=== PATIENT | female | born 1945 | race Caucasian/White ===

== ENCOUNTER 2020-03-12 22:30 | Inpatient (IN) | payer MEDICARE, OTHER ==
--- NOTE | 2020-03-12 22:39 | EDM.PDOC ---
ED HPI GENERAL MEDICAL PROBLEM - General Chief Complaint: Respiratory Problem Stated Complaint: AMBULANCE Time Seen by Provider: 03/12/20 22:36 Source of Information: Reports: Patient, EMS History Limitations: Reports: No Limitations - History of Present Illness INITIAL COMMENTS - FREE TEXT/NARRATIVE: EMS state pt c/o sob since noon and felt worse tonight. - Related Data Allergies Allergy/AdvReac Type Severity Reaction Status Date / Time amlodipine besylate Allergy Unknown UNKNOWN Verified 03/12/20 22:19 [From Lotrel] benazepril HCl [From Lotrel] Allergy Unknown UNKNOWN Verified 03/12/20 22:19 fosinopril sodium Allergy Unknown UNKNOWN Verified 03/12/20 22:19 [From Monopril] furosemide [From Lasix] Allergy Unknown SKIN Verified 03/12/20 22:19 RASHES/HIVES hydrochlorothiazide Allergy Unknown SKIN RASH Verified 03/12/20 22:19 irbesartan [From Avapro] Allergy Unknown UNKNOWN Verified 03/12/20 22:19 metformin Allergy Unknown Diarrhea Verified 03/12/20 22:19 metoprolol succinate Allergy Unknown SWOLLEN Verified 03/12/20 22:19 [From Toprol XL] LIPS/TONGUE propranolol HCl Allergy Unknown UNKNOWN Verified 03/12/20 22:19 [From Inderal LA] ramipril [From Altace] Allergy Unknown SWOLLEN Verified 03/12/20 22:19 LIPS/TONGUE verapamil HCl [From Verelan] Allergy Unknown RASH, HIVES Verified 03/12/20 22:19 zinc Allergy Unknown UNKNOWN Verified 03/12/20 22:19 codeine Allergy Other Verified 03/12/20 22:19 CALCIUM CHANNEL BLOCKING Allergy Unknown UNKNOWN Uncoded 03/12/20 22:19 AGENTS Home Meds: Home Meds Aspirin [Low Dose Aspirin EC] 81 mg PO DAILY 04/22/16 [History] Glimepiride 1 mg PO DAILY 04/22/16 [History] Methyldopa 250 mg PO BID 04/22/16 [History] Telmisartan/Hydrochlorothiazid [Telmisartan-Hctz 80-12.5 mg Tb] 1 tab PO DAILY 04/22/16 [History] Terazosin HCl [Terazosin] 10 mg PO BID 04/22/16 [History] Acetaminophen [Tylenol Arthritis] 1,300 mg PO BID 06/19/16 [History] Clopidogrel [Plavix] 75 mg PO DAILY 06/19/16 [History] Potassium Gluconate 99 mg PO DAILY 06/19/16 [History] Pravastatin Sodium [Pravastatin (Pravachol)] 40 mg PO DAILY 06/19/16 [History] carvediloL [Coreg] 25 mg PO BID 06/19/16 [History] cloNIDine [Catapres-TTS 2] 1 patch TOP WEEKLY 06/19/16 [History] raNITIdine HCL [Zantac 75] 75 mg PO BID 06/19/16 [History] hydrALAZINE [Apresoline] 25 mg PO TID 07/12/16 [History] Past Medical History Cardiovascular History: Reports: Hypertension Gastrointestinal History: Reports: GERD Genitourinary History: Reports: None [employer] History: Reports: None Musculoskeletal History: Reports: Arthritis Neurological History: Reports: None Psychiatric History: Reports: None Endocrine/Metabolic History: Reports: Diabetes, Type II, Obesity/BMI 30+ Hematologic History: Reports: None Immunologic History: Reports: None Oncologic (Cancer) History: Reports: None Dermatologic History: Reports: None - Infectious Disease History Infectious Disease History: Reports: Chicken Pox - Past Surgical History Neurological Surgical History: Reports: None Social & Family History - Family History Family Medical History: Noncontributory - Caffeine Use Caffeine Use: Reports: None ED ROS GENERAL - Review of Systems Review Of Systems: Comprehensive ROS is negative, except as noted in HPI. ED EXAM, GENERAL - Physical Exam Exam: See Below Exam Limited By: No Limitations General Appearance: Alert, Mild Distress, Obese, Other (discomfort) Ears: Hearing Grossly Normal Throat/Mouth: Normal Voice, No Airway Compromise Head: Atraumatic Neck: Non-Tender, Full Range of Motion Respiratory/Chest: No Accessory Muscle Use, Decreased Breath Sounds, Rhonchi Cardiovascular: Regular Rate, Rhythm GI/Abdominal: Soft, Non-Tender (Female) Exam: Deferred Rectal (Female) Exam: Deferred Extremities: Pedal Edema, Other (3+ bilateral) Neurological: Alert, Oriented, Normal Cognition Psychiatric: Flat Affect Skin Exam: Warm, Dry, Normal Color Lymphatic: No Adenopathy Course - Vital Signs Last Recorded V/S: Last Vital Signs Temp 37.8 C 03/12/20 22:39 Pulse 79 03/12/20 22:39 Resp 20 03/12/20 22:39 BP 145/47 H 03/12/20 22:39 Pulse Ox 100 03/12/20 22:39 - Orders/Labs/Meds Orders: Active Orders 24 hr Category Date Time Status EKG 12 Lead [EKG Documentation Completion] [RC] URGENT Care 03/12/20 22:45 Active CULTURE BLOOD [BC] Stat Lab 03/12/20 22:42 Received Labs: Laboratory Tests 03/12/20 03/12/20 03/12/20 Range/Units 22:42 22:42 22:42 WBC 18.9 H (5.0-10.0) 10^3/uL RBC 4.46 (4.2-5.4) 10^6/uL Hgb 12.9 (12.0-16.0) g/dL Hct 38.9 (37.0-47.0) % MCV 87.2 (80-100) fL MCH 28.9 (27.0-34.0) pg MCHC 33.2 (33.0-35.0) g/dL Plt Count 122 L (150-450) 10^3/uL Neut % (Auto) Not Reportable Lymph % (Auto) 4.5 L (20.5-50.1) % [place] % (Auto) 5.8 (2-8) % Eos % (Auto) 0.1 L (1.0-3.0) % Add Manual Diff Yes Neutrophils % (Manual) 88 H (42-75) % Lymphocytes % (Manual) 7 L (20-50) % Monocytes % (Manual) 5 (2-8) % Sodium 136 (136-145) mmol/L Potassium 3.6 (3.5-5.1) mmol/L Chloride 97 L (98-107) mmol/L Carbon Dioxide 31 (21-32) mmol/L Anion Gap 11.6 (7-13) mEq/L BUN 21 H (7-18) mg/dL Creatinine 1.98 H (0.55-1.02) mg/dL Est Cr Clr Drug Dosing 20.31 mL/min Estimated GFR (MDRD) 25 BUN/Creatinine Ratio 10.6 (No establ ref range) Glucose 159 H (74-99) mg/dL Lactic Acid 1.6 (0.4-2.0) mmol/L Calcium 8.8 (8.5-10.1) mg/dL Total Bilirubin 1.4 H (0.2-1.0) mg/dL AST 25 (15-37) U/L ALT 31 (14-59) U/L Alkaline Phosphatase 61 (46-116) U/L Troponin I < 0.017 (0.000-0.056) ng/mL B-Natriuretic Peptide 199 H (0-100) pg/ml Total Protein 6.6 (6.4-8.2) g/dL Albumin 3.3 L (3.4-5.0) g/dL Globulin 3.3 Albumin/Globulin Ratio 1.00 Urine Color (YELLOW) Urine Appearance (CLEAR) Urine pH (5.0-9.0) Ur Specific Curtis (1.005-1.030) Urine Protein (NEGATIVE) Urine Glucose (UA) (NEGATIVE) Urine Ketones (NEGATIVE) Urine Occult Blood (NEGATIVE) Urine Nitrite (NEGATIVE) Urine Bilirubin (NEGATIVE) Urine Urobilinogen (0.2-1.0) mg/dL Ur Leukocyte Esterase (NEGATIVE) Urine RBC /HPF Urine WBC (0-5/HPF) /HPF Ur Epithelial Cells (NOT SEEN) /HPF Amorphous Sediment (NOT SEEN) /HPF Urine Bacteria (0-FEW/HPF) /HPF Urine Mucus (NOT SEEN) /LPF SARS CoV-2 RNA Rapid AGA (NEGATIVE) 03/13/20 03/13/20 Range/Units 00:36 23:33 WBC (5.0-10.0) 10^3/uL RBC (4.2-5.4) 10^6/uL Hgb (12.0-16.0) g/dL Hct (37.0-47.0) % MCV (80-100) fL MCH (27.0-34.0) pg MCHC (33.0-35.0) g/dL Plt Count (150-450) 10^3/uL Neut % (Auto) Lymph % (Auto) (20.5-50.1) % [place] % (Auto) (2-8) % Eos % (Auto) (1.0-3.0) % Add Manual Diff Neutrophils % (Manual) (42-75) % Lymphocytes % (Manual) (20-50) % Monocytes % (Manual) (2-8) % Sodium (136-145) mmol/L Potassium (3.5-5.1) mmol/L Chloride (98-107) mmol/L Carbon Dioxide (21-32) mmol/L Anion Gap (7-13) mEq/L BUN (7-18) mg/dL Creatinine (0.55-1.02) mg/dL Est Cr Clr Drug Dosing mL/min Estimated GFR (MDRD) BUN/Creatinine Ratio (No establ ref range) Glucose (74-99) mg/dL Lactic Acid (0.4-2.0) mmol/L Calcium (8.5-10.1) mg/dL Total Bilirubin (0.2-1.0) mg/dL AST (15-37) U/L ALT (14-59) U/L Alkaline Phosphatase (46-116) U/L Troponin I (0.000-0.056) ng/mL B-Natriuretic Peptide (0-100) pg/ml Total Protein (6.4-8.2) g/dL Albumin (3.4-5.0) g/dL Globulin Albumin/Globulin Ratio Urine Color Yellow (YELLOW) Urine Appearance Clear (CLEAR) Urine pH 5.5 (5.0-9.0) Ur Specific Curtis 1.020 (1.005-1.030) Urine Protein 30 H (NEGATIVE) Urine Glucose (UA) Negative (NEGATIVE) Urine Ketones Negative (NEGATIVE) Urine Occult Blood Trace-intact H (NEGATIVE) Urine Nitrite Negative (NEGATIVE) Urine Bilirubin Negative (NEGATIVE) Urine Urobilinogen 0.2 (0.2-1.0) mg/dL Ur Leukocyte Esterase Negative (NEGATIVE) Urine RBC 0-5 /HPF Urine WBC 0-5 (0-5/HPF) /HPF Ur Epithelial Cells Rare (NOT SEEN) /HPF Amorphous Sediment Few (NOT SEEN) /HPF Urine Bacteria Few (0-FEW/HPF) /HPF Urine Mucus Rare (NOT SEEN) /LPF SARS CoV-2 RNA Rapid AGA Negative (NEGATIVE) Meds: Medications Discontinued Medications Generic Name Dose Route Start Last Admin Trade Name Freq PRN Reason Stop Dose Admin Ondansetron HCl 4 mg 03/12/20 23:07 03/12/20 23:12 Zofran IVPUSH 03/12/20 23:08 4 mg ONETIME ONE Administration - Re-Assessments/Exams Free Text/Narrative Re-Assessment/Exam: 03/13/20 02:[address] Loera who kindly admitted pt. Departure - Departure Time of Disposition: 02: Disposition: Admitted As Inpatient 65 Condition: Fair Clinical Impression: Renal failure Qualifiers: Renal failure chronicity: acute Acute renal failure type: unspecified Qualified Code(s): N17.9 - Acute kidney failure, unspecified CHF (congestive heart failure) Qualifiers: Heart failure type: unspecified Heart failure chronicity: acute on chronic Qualified Code(s): I50.9 - Heart failure, unspecified Leukocytosis Qualifiers: Leukocytosis type: unspecified Qualified Code(s): D72.829 - Elevated white blood cell count, unspecified - Discharge Information Forms: ED Department Discharge Sepsis Event Note (ED) - Focused Exam Vital Signs: Vital Signs Temp Pulse Resp BP Pulse Ox 03/12/20 22:39 37.8 C 79 20 145/47 H 100 - My Orders Last 24 Hours: My Active Orders 03/12/20 22:42 CULTURE BLOOD [BC] Stat 03/12/20 22:45 EKG 12 Lead [EKG Documentation Completion] [RC] URGENT - Assessment/Plan Last 24 Hours: My Active Orders 03/12/20 22:42 CULTURE BLOOD [BC] Stat 03/12/20 22:45 EKG 12 Lead [EKG Documentation Completion] [RC] URGENT
[2020-03-12] MEDS ORDERED: Ondansetron 4 MG/2 ML SDV IVPUSH ONE (23:07)
[2020-03-12 23:09] LABS: ANION GAP 11.6 mEq/L (7-13); CHLORIDE,CL 97 mmol/L (98-107); SODIUM,NA 136 mmol/L (136-145)
--- NOTE | 2020-03-12 23:24 | CR ---
PROCEDURE INFORMATION: Exam: XR Chest, 1 View Exam date and time: 03/12/2020 11:15 PM Age: 74 years old Clinical indication: Other: Weak; Additional info: SOB TECHNIQUE: Imaging protocol: XR of the chest Views: 1 view. COMPARISON: CR Chest 2V 04/30/2016 2:43 PM FINDINGS: Lungs: Unremarkable. No consolidation. Pleural space: Unremarkable. No pleural effusion. No pneumothorax. Heart/Mediastinum: Unremarkable. No cardiomegaly. Bones/joints: Unremarkable. IMPRESSION: 1. No acute findings. 2. No acute lung infiltrates or edema. 3. No pleural effusions. 4. Chronic elevation of the right hemidiaphragm. Stable since 2015.
--- NOTE | 2020-03-13 02:08 | CT ---
PROCEDURE INFORMATION: Exam: CT Chest Without Contrast Exam date and time: 03/13/2020 1:40 AM Age: 74 years old Clinical indication: Shortness of breath; Additional info: Possible covid pneumonia TECHNIQUE: Imaging protocol: Computed tomography of the chest without contrast. Radiation optimization: All CT scans at this facility use at least one of these dose optimization techniques: automated exposure control; mA and/or kV adjustment per patient size (includes targeted exams where dose is matched to clinical indication); or iterative reconstruction. COMPARISON: CT Chest w Cont 05/08/2016 2:01 PM FINDINGS: Lungs: The lungs are clear by CT evaluation. No features to suggest viral pneumonitis. There are no infiltrates or ground-glass opacifications as were suggested by plain film. This was likely artifact of overlying chest wall soft tissues. There is minimal bibasilar atelectasis. Pleural space: Scant bilateral pleural effusions which are nonspecific. Heart: [id number] cardiomegaly. Left atrial enlargement. Mitral valve calcification. Coronary artery atherosclerosis. No pericardial effusion. Mediastinal space: Small to moderate hiatal hernia. Aorta: Unremarkable. No aortic aneurysm. Other arteries: Incidental finding of bilateral renal artery origin endovascular stents Lymph nodes: Unremarkable. No enlarged lymph nodes. Bones/joints: Unremarkable. No acute fracture. Soft tissues: Chest wall soft tissues are unremarkable. IMPRESSION: 1. Lungs are clear by CT. Suggestion of ground-glass opacifications by earlier plain film appear to have been erroneous and may have been related to overlying chest wall soft tissue structures. 2. Cardiomegaly. Left atrial enlargement. Coronary artery atherosclerosis. Mitral valve calcification. 3. Scant bilateral pleural effusions. 4. Degenerative thoracic spine disease.
--- NOTE | 2020-03-13 03:38 | PCM.HP ---
H&P History of Present Illness - General Date of Service: 03/13/20 Admit Problem/Dx: Admission Diagnosis/Problem Admission Diagnosis/Problem CHF, Congestive heart failure, acute Kidney Injury and Fever of unknown origin Source of Information: Patient, EMS Notes Reviewed, Family, Old Records History Limitations: Reports: No Limitations - History of Present Illness Initial Comments - Free Text/Narative: Ms. Au is a 74-year-old pleasant morbidly obese female with past medical history of stroke, history of renal artery stenosis with a stent in May 2016, obstructive sleep apnea. Diabetes type 2, noninsulin-dependent with Minimal proteinuria. No diabetic retinopathy. Hyperlipidemia, hypertension, and coronary artery disease. her baseline creatinine ranged from 1.2 to 1.5 mg/dL and she was last seen [facility] on 11/24/19 and on that visit creatinine was 1.6 mg/dl and supposed to see me back in 2 weeks but did not come back. Today she presented to ER with progressive increase in shortness of breath for the last 2 days but getting worse. In ER she had low grade temperature with leukocytosis. she had CT of chest without contrast : lungs clear by CT and scant B/L pleural effusion, CXR - no acute Lung infiltrate. Her WBC was 18.9 and creatinine was at 1.98 mg/dl. In ER she also had U/A done that is also not indicative of any Infection. Onset of Symptoms: Reports: Gradual Duration of Symptoms: Reports: Day(s): Associated Symptoms: Reports: Shortness of Breath - Related Data Allergies/Adverse Reactions: Allergies Allergy/AdvReac Type Severity Reaction Status Date / Time metformin Allergy Unknown Diarrhea Verified 03/13/20 03:46 zinc Allergy Unknown UNKNOWN Verified 03/13/20 03:46 acetaminophen [From [place]] Allergy Hyperactivi Verified 03/13/20 03:46 ty amlodipine [From Lotrel] Allergy Other Verified 03/13/20 03:46 benazepril [From Lotrel] Allergy Other Verified 03/13/20 03:46 clonidine Allergy Itching Verified 03/13/20 03:46 codeine Allergy Other Verified 03/13/20 03:46 fosinopril [From Monopril] Allergy Other Verified 03/13/20 03:46 hydrocodone [From [place]] Allergy Hyperactivi Verified 03/13/20 03:46 ty irbesartan [From Avapro] Allergy Other Verified 03/13/20 03:46 lorazepam [From Ativan] Allergy Hyperactivi Verified 03/13/20 03:46 ty metolazone Allergy Headache Verified 03/13/20 03:46 ramipril [From Altace] Allergy Other Verified 03/13/20 03:46 verapamil [From Verelan] Allergy Other Verified 03/13/20 03:46 Home Medications: Home Meds Acetaminophen [Acetaminophen Extra Strength] 1,000 mg PO BID 03/13/20 [History] Bumetanide [Bumex] 2 mg PO 08,12,16 03/13/20 [History] Calcitriol 0.25 mcg PO BEDTIME 03/13/20 [History] Cholecalciferol (Vitamin D3) [Vitamin D3] 400 unit PO 1200 03/13/20 [History] Clopidogrel Bisulfate [Clopidogrel] 75 mg PO DAILY 03/13/20 [History] Insulin Aspart [NovoLOG] 17 unit SQ ACBREAKFAST 03/13/20 [History] Insulin Aspart [NovoLOG] 17 unit SQ ACLUNCH 03/13/20 [History] Insulin Aspart [NovoLOG] 17 unit SQ ASDIRECTED 03/13/20 [History] Insulin Degludec [Tresiba] 55 unit SQ BEDTIME 03/13/20 [History] Metoprolol Tartrate 100 mg PO BID 03/13/20 [History] Potassium Chloride [Klor-Con 10] 10 meq PO BID 03/13/20 [History] Pravastatin Sodium [Pravastatin (Pravachol)] 80 mg PO BEDTIME 03/13/20 [History] Terazosin HCl [Terazosin] 10 mg PO BID 03/13/20 [History] Warfarin [Coumadin] 3 mg PO .SAT.SAT.SAT.SUN 03/13/20 [History] Warfarin [Coumadin] 5 mg PO ..SAT 03/13/20 [History] amLODIPine [Norvasc] 5 mg PO 1200 03/13/20 [History] diphenhydrAMINE [Benadryl] 25 mg PO BEDTIME PRN 03/13/20 [History] hydrALAZINE [Apresoline] 10 mg PO BID 03/13/20 [History] Past Medical History Cardiovascular History: Reports: Hypertension Gastrointestinal History: Reports: GERD Genitourinary History: Reports: None [employer] History: Reports: None Musculoskeletal History: Reports: Arthritis Neurological History: Reports: None Psychiatric History: Reports: None Endocrine/Metabolic History: Reports: Diabetes, Type II, Obesity/BMI 30+ Hematologic History: Reports: None Immunologic History: Reports: None Oncologic (Cancer) History: Reports: None Dermatologic History: Reports: None - Infectious Disease History Infectious Disease History: Reports: Chicken Pox - Past Surgical History Neurological Surgical History: Reports: None Social & Family History - Family History Family Medical History: Noncontributory - Tobacco Use Tobacco Use Status *Q: Unknown Ever Used Tobacco Second Hand Smoke Exposure: No - Caffeine Use Caffeine Use: Reports: None H&P Review of Systems - Review of Systems: Review Of Systems: See Below General: Reports: Fever, Weakness, Other (shortness of breath) HEENT: Denies: Headaches, Sinus Congestion, Sore Throat, Visual Changes Pulmonary: Reports: Shortness of Breath. Denies: Wheezing, Cough, Sputum Cardiovascular: Reports: Dyspnea on Exertion. Denies: Chest Pain, Lightheadedness, Claudication Gastrointestinal: Denies: Abdominal Pain, Difficulty Swallowing, Nausea, Vomiting Genitourinary: Denies: Dysuria, Burning, Flank Pain Musculoskeletal: Denies: Neck Pain, Leg Pain, Joint Swelling, Muscle Pain Skin: Reports: Rash (under the breast). Denies: Cyanosis, Bruising, Pruritis Psychiatric: Denies: Confusion, Anxiety Neurological: Denies: Confusion, Numbness, Paresthesia, Tremors Hematologic/Lymphatic: Reports: No Symptoms Immunologic: Reports: No Symptoms Exam - Exam Exam: See Below - Vital Signs Vital Signs: Last Vital Signs Temp 37.8 C 03/12/20 22:39 Pulse 79 03/12/20 22:39 Resp 20 03/12/20 22:39 BP 145/47 H 03/12/20 22:39 Pulse Ox 100 03/12/20 22:39 Weight: 122.697 kg - Exam Quality Assessment: Supplemental Oxygen, DVT Prophylaxis. No: Urinary Catheter General: Alert, Oriented, Cooperative HEENT: Conjunctiva Clear, EOMI, Mucosa Moist & [place] Neck: Supple. No: Lymphadenopathy, JVD, Thyromegaly Lungs: Clear to Auscultation, Normal Respiratory Effort, Decreased Breath Sounds (at B/L base) Cardiovascular: Regular Rate, Regular Rhythm, Diastolic Murmur GI/Abdominal Exam: Normal Bowel Sounds, Non-Tender, No Organomegaly. No: Rigid, Rebound (Female) Exam: Deferred Rectal (Female) Exam: Deferred Back Exam: Normal Inspection, Full Range of Motion Extremities: Normal Inspection, Normal Range of Motion, Pedal Edema Skin: Warm, Dry, Intact Neurological: Cranial Nerves Intact, Reflexes Equal Bilateral Neuro Extensive - Mental Status: Alert, Oriented x3, Normal Mood/Affect, Normal Cognition, Memory Intact Neuro Extensive - Motor, Sensory, Reflexes: CN II-XII Intact, Normal Gait, Normal Reflexes Psychiatric: Alert, Normal Affect, Normal Mood - Patient Data Lab Results Last 24 hrs: Laboratory Results - last 24 hr 03/12/20 03/12/20 03/12/20 Range/Units 22:42 22:42 22:42 WBC 18.9 H (5.0-10.0) 10^3/uL RBC 4.46 (4.2-5.4) 10^6/uL Hgb 12.9 (12.0-16.0) g/dL Hct 38.9 (37.0-47.0) % MCV 87.2 (80-100) fL MCH 28.9 (27.0-34.0) pg MCHC 33.2 (33.0-35.0) g/dL Plt Count 122 L (150-450) 10^3/uL Neut % (Auto) Not Reportable Lymph % (Auto) 4.5 L (20.5-50.1) % [place] % (Auto) 5.8 (2-8) % Eos % (Auto) 0.1 L (1.0-3.0) % Add Manual Diff Yes Neutrophils % (Manual) 88 H (42-75) % Lymphocytes % (Manual) 7 L (20-50) % Monocytes % (Manual) 5 (2-8) % Sodium 136 (136-145) mmol/L Potassium 3.6 (3.5-5.1) mmol/L Chloride 97 L (98-107) mmol/L Carbon Dioxide 31 (21-32) mmol/L Anion Gap 11.6 (7-13) mEq/L BUN 21 H (7-18) mg/dL Creatinine 1.98 H (0.55-1.02) mg/dL Est Cr Clr Drug Dosing 20.31 mL/min Estimated GFR (MDRD) 25 BUN/Creatinine Ratio 10.6 (No establ ref range) Glucose 159 H (74-99) mg/dL Lactic Acid 1.6 (0.4-2.0) mmol/L Calcium 8.8 (8.5-10.1) mg/dL Total Bilirubin 1.4 H (0.2-1.0) mg/dL AST 25 (15-37) U/L ALT 31 (14-59) U/L Alkaline Phosphatase 61 (46-116) U/L Troponin I < 0.017 (0.000-0.056) ng/mL B-Natriuretic Peptide 199 H (0-100) pg/ml Total Protein 6.6 (6.4-8.2) g/dL Albumin 3.3 L (3.4-5.0) g/dL Globulin 3.3 Albumin/Globulin Ratio 1.00 Urine Color (YELLOW) Urine Appearance (CLEAR) Urine pH (5.0-9.0) Ur Specific [place] (1.005-1.030) Urine Protein (NEGATIVE) Urine Glucose (UA) (NEGATIVE) Urine Ketones (NEGATIVE) Urine Occult Blood (NEGATIVE) Urine Nitrite (NEGATIVE) Urine Bilirubin (NEGATIVE) Urine Urobilinogen (0.2-1.0) mg/dL Ur Leukocyte Esterase (NEGATIVE) Urine RBC /HPF Urine WBC (0-5/HPF) /HPF Ur Epithelial Cells (NOT SEEN) /HPF Amorphous Sediment (NOT SEEN) /HPF Urine Bacteria (0-FEW/HPF) /HPF Urine Mucus (NOT SEEN) /LPF SARS CoV-2 RNA Rapid AGA (NEGATIVE) 03/13/20 03/13/20 Range/Units 00:36 23:33 WBC (5.0-10.0) 10^3/uL RBC (4.2-5.4) 10^6/uL Hgb (12.0-16.0) g/dL Hct (37.0-47.0) % MCV (80-100) fL MCH (27.0-34.0) pg MCHC (33.0-35.0) g/dL Plt Count (150-450) 10^3/uL Neut % (Auto) Lymph % (Auto) (20.5-50.1) % [place] % (Auto) (2-8) % Eos % (Auto) (1.0-3.0) % Add Manual Diff Neutrophils % (Manual) (42-75) % Lymphocytes % (Manual) (20-50) % Monocytes % (Manual) (2-8) % Sodium (136-145) mmol/L Potassium (3.5-5.1) mmol/L Chloride (98-107) mmol/L Carbon Dioxide (21-32) mmol/L Anion Gap (7-13) mEq/L BUN (7-18) mg/dL Creatinine (0.55-1.02) mg/dL Est Cr Clr Drug Dosing mL/min Estimated GFR (MDRD) BUN/Creatinine Ratio (No establ ref range) Glucose (74-99) mg/dL Lactic Acid (0.4-2.0) mmol/L Calcium (8.5-10.1) mg/dL Total Bilirubin (0.2-1.0) mg/dL AST (15-37) U/L ALT (14-59) U/L Alkaline Phosphatase (46-116) U/L Troponin I (0.000-0.056) ng/mL B-Natriuretic Peptide (0-100) pg/ml Total Protein (6.4-8.2) g/dL Albumin (3.4-5.0) g/dL Globulin Albumin/Globulin Ratio Urine Color Yellow (YELLOW) Urine Appearance Clear (CLEAR) Urine pH 5.5 (5.0-9.0) Ur Specific [place] 1.020 (1.005-1.030) Urine Protein 30 H (NEGATIVE) Urine Glucose (UA) Negative (NEGATIVE) Urine Ketones Negative (NEGATIVE) Urine Occult Blood Trace-intact H (NEGATIVE) Urine Nitrite Negative (NEGATIVE) Urine Bilirubin Negative (NEGATIVE) Urine Urobilinogen 0.2 (0.2-1.0) mg/dL Ur Leukocyte Esterase Negative (NEGATIVE) Urine RBC 0-5 /HPF Urine WBC 0-5 (0-5/HPF) /HPF Ur Epithelial Cells Rare (NOT SEEN) /HPF Amorphous Sediment Few (NOT SEEN) /HPF Urine Bacteria Few (0-FEW/HPF) /HPF Urine Mucus Rare (NOT SEEN) /LPF SARS CoV-2 RNA Rapid AGA Negative (NEGATIVE) Result Diagrams: 03/12/20 22:42 03/12/20 22:42 Obed Results Last 24 hrs: Microbiology 03/13/20 02:38 Anaerobic Blood Culture - Final Blood - Problem List (1) Acute kidney injury SNOMED Code(s): 91835018, 56172468 ICD Code: N17.9 - ACUTE KIDNEY FAILURE, UNSPECIFIED Status: Acute Current Visit: Yes (2) Congestive heart failure SNOMED Code(s): 16201619 ICD Code: I50.9 - HEART FAILURE, UNSPECIFIED Status: Acute Current Visit: No Qualifiers: Heart failure type: unspecified Heart failure chronicity: acute on chronic Qualified Code(s): I50.9 - Heart failure, unspecified (3) Leukocytosis SNOMED Code(s): 524880615, 917539327 ICD Code: D72.829 - ELEVATED WHITE BLOOD CELL COUNT, UNSPECIFIED Status: Acute Current Visit: No Qualifiers: Leukocytosis type: unspecified Qualified Code(s): D72.829 - Elevated white blood cell count, unspecified Problem List Initiated/Reviewed/Updated: Yes Orders Last 24hrs: Active Orders 24 hr Category Date Time Status Admission Diagnosis [ADT] Stat ADT 03/13/20 02:35 Ordered Admission Status [Patient Status] [ADT] Routine ADT 03/13/20 02:35 Active CULTURE BLOOD [BC] Stat Lab 03/12/20 22:42 Received CULTURE BLOOD [BC] Stat Lab 03/13/20 02:38 Results Assessment/Plan Comment:: Ms. Au is a 74-year-old pleasant morbidly obese female with past medical history of stroke, history of renal artery stenosis with a stent in June 08, obstructive sleep apnea. Diabetes type 2, noninsulin-dependent with Minimal proteinuria. No diabetic retinopathy. Hyperlipidemia, hypertension, and coronary artery disease. her baseline creatinine ranged from 1.2 to 1.5 mg/dL and she was last seen [facility] on 11/24/19 and on that visit creatinine was 1.6 mg/dl and supposed to see me back in 2 weeks but did not come back. Today she presented to ER with progressive increase in shortness of breath for the last 2 days but getting worse. In ER she had low grade temperature with leukocytosis. she had CT of chest without contrast : lungs clear by CT and scant B/L pleural effusion, CXR - no acute Lung infiltrate. Her WBC was 18.9 and creatinine was at 1.98 mg/dl. In ER she also had U/A done that is also not indicative of any Infection. Impression and Plan: 1. Increased shortness of breath with fever and Leukocytosis: Pt had CT and CXR showing no acute process -Will bet b/C X 2 and also U/C -Will start empiric abx treatment with Zosyn and Azithromycin -Will also start Bumex IV 1.5 mg BID -Continue [place] oxygen and try to wean off as tolerated 2. TULIO: The etiology not clear and likely from Medication and likely cardiorenal syndrome also possible infectious origin -Will continue diuresis with bumex 1.5 mg IV BID -Will stop Bumex at 2 mg 3 times a day -Continue I/O recording 3. Hypertension: BP is acceptable and will continue Home medication, Amlodipine, Metoprolol and Hydralazine 4. Edema of extremities: She has trace to +1 pitting edema -Will start IV lasix at 40 mg IV ID -Check weight daily 5. Diabetes II: ( Insulin Dependent): will continue Insulin 6. Coronary Artery disease: Continue statin/plavix and Metoprolol can not tolerate SHE/ARB DVT prophylaxis: pt is on coumadin and pharmacy to dose Code Status: Discuss with pt and she is Full Code
[2020-03-13] MEDS ORDERED: Docusate Sodium 100 MG Cap PO PRN (04:00)
[2020-03-13] MEDS ORDERED: Bumetanide 1 MG/4 ML MDV IVPUSH ONE (04:15)
[2020-03-13] MEDS: Azithromycin 500 MG in Sodium Chloride 0.9% 250 ML IV SCH (04:35)
[2020-03-13] MEDS ORDERED: Piperacillin/Tazobactam 3.375 GM in Sodium Chloride 0.9% 100 ML IV ONE (05:45)
[2020-03-13] MEDS ORDERED: Insulin Lispro 100 Units/ML 3 ML Vial SUBCUT SCH ×4 (06:00→17:00)
[2020-03-13] MEDS: Terazosin 5 MG Cap PO SCH ×2 (08:55→21:03)
[2020-03-13] MEDS: Metoprolol Tartrate 50 MG Tab PO SCH ×2 (08:56→21:04)
[2020-03-13] MEDS: Potassium Chloride 10 MEQ Tab.ER PO SCH ×2 (08:56→21:06)
[2020-03-13] MEDS: Nystatin Topical Powder 30 GM Bottle TOP SCH ×2 (08:57→21:19)
[2020-03-13] MEDS: Acetaminophen 500 MG Tab PO SCH ×2 (08:58→21:05)
[2020-03-13] MEDS: Clopidogrel 75 MG Tab PO SCH (08:58)
[2020-03-13] MEDS ORDERED: Furosemide 40 MG/4 ML VIAL IVPUSH SCH (09:00)
[2020-03-13] MEDS ORDERED: Piperacillin/Tazobactam 3.375 GM in Sodium Chloride 0.9% 100 ML IV SCH (12:00)
[2020-03-13] MEDS: Bumetanide 1 MG/4 ML MDV IVPUSH SCH ×2 (13:13→21:09)
[2020-03-13] MEDS: amLODIPine 5 MG Tab PO SCH (13:17)
[2020-03-13] MEDS: Piperacillin/Tazobactam 2.25 GM in Sodium Chloride 0.9% 50 ML IV SCH ×3 (14:01→23:51)
[2020-03-13] MEDS ORDERED: 50% Dextrose in Water 50 ML Syringe IV PRN (17:36)
[2020-03-13] MEDS ORDERED: Glucagon,Human Recombinant 1 MG Vial IM PRN (17:36)
[2020-03-13] MEDS: Insulin Lispro 100 Units/ML 3 ML Vial SUBCUT SCH ×2 (18:00→21:16)
[2020-03-13] MEDS ORDERED: Insulin Glarg,Human.Rec.Analog 100 Unit/ML SUBCUT SCH (21:00)
[2020-03-13] MEDS: diphenhydrAMINE 25 MG Tab PO SCH (21:01)
[2020-03-13] MEDS: Pravastatin 20 MG Tab PO SCH (21:03)
[2020-03-14] MEDS ORDERED: Azithromycin 500 MG Vial ONE (03:37)
[2020-03-14] MEDS: Azithromycin 500 MG in Sodium Chloride 0.9% 250 ML IV SCH (03:44)
[2020-03-14] MEDS: Acetaminophen 325 MG Tab PO PRN (04:49)
[2020-03-14] MEDS: Piperacillin/Tazobactam 2.25 GM in Sodium Chloride 0.9% 50 ML IV SCH ×3 (05:30→17:47)
[2020-03-14 06:50] LABS: ANION GAP 8.7 mEq/L (7-13)
[2020-03-14] MEDS: Terazosin 5 MG Cap PO SCH ×2 (09:17→21:14)
[2020-03-14] MEDS: Metoprolol Tartrate 50 MG Tab PO SCH ×2 (09:17→21:17)
[2020-03-14] MEDS: Clopidogrel 75 MG Tab PO SCH (09:18)
[2020-03-14] MEDS: Acetaminophen 500 MG Tab PO SCH ×2 (09:18→21:16)
[2020-03-14] MEDS: Potassium Chloride 10 MEQ Tab.ER PO SCH ×2 (09:18→21:17)
[2020-03-14] MEDS: Bumetanide 1 MG/4 ML MDV IVPUSH SCH (09:19)
[2020-03-14] MEDS: Insulin Lispro 100 Units/ML 3 ML Vial SUBCUT SCH ×4 (09:19→21:11)
[2020-03-14] MEDS: Nystatin Topical Powder 30 GM Bottle TOP SCH ×2 (09:20→21:18)
--- NOTE | 2020-03-14 10:13 | PCM.PN ---
- General Info Date of Service: 03/14/20 Admission Dx/Problem (Free Text): Admission Diagnosis/Problem Admission Diagnosis/Problem CHF, Congestive heart failure, acute Kidney Injury and Fever of unknown origin Subjective Update: Patient seen and examined today. Reports that her shortness of breath is improving. Lower extremities still very edematous. Afebrile overnight. Functional Status: Reports: Pain Controlled - Review of Systems General: Reports: No Symptoms HEENT: Reports: No Symptoms Pulmonary: Reports: Shortness of Breath Cardiovascular: Reports: Edema Gastrointestinal: Reports: No Symptoms Genitourinary: Reports: No Symptoms Musculoskeletal: Reports: No Symptoms Skin: Reports: No Symptoms Neurological: Reports: No Symptoms Psychiatric: Reports: No Symptoms - Patient Data Vitals - Most Recent: Last Vital Signs Temp 97.7 F 03/14/20 07:51 Pulse 70 03/14/20 09:17 Resp 20 03/14/20 07:51 BP 112/65 03/14/20 09:17 Pulse Ox 86 L 03/14/20 07:51 Weight - Most Recent: 267 lb 6.4 oz I&O - Last 24 Hours: Intake & Output 03/13/20 03/14/20 03/14/20 22:59 06:59 14:59 Intake Total 960 1010 Output Total 1450 500 Balance -490 510 Lab Results Last 24 Hours: Laboratory Results - last 24 hr 03/13/20 03/13/20 03/13/20 Range/Units 11:44 16:56 20:57 WBC (5.0-10.0) 10^3/uL RBC (4.2-5.4) 10^6/uL Hgb (12.0-16.0) g/dL Hct (37.0-47.0) % MCV (80-100) fL MCH (27.0-34.0) pg MCHC (33.0-35.0) g/dL Plt Count (150-450) 10^3/uL Neut % (Auto) (42.2-75.2) % Lymph % (Auto) (20.5-50.1) % [place] % (Auto) (2-8) % Eos % (Auto) (1.0-3.0) % Baso % (Auto) (0.0-1.0) % PT (9.0-12.0) SEC INR (0.9-1.2) Sodium (136-145) mmol/L Potassium (3.5-5.1) mmol/L Chloride (98-107) mmol/L Carbon Dioxide (21-32) mmol/L Anion Gap (7-13) mEq/L BUN (7-18) mg/dL Creatinine (0.55-1.02) mg/dL Est Cr Clr Drug Dosing mL/min Estimated GFR (MDRD) Glucose (74-99) mg/dL POC Glucose 202 H 147 H 264 H (83-110) mg/dl Calcium (8.5-10.1) mg/dL 03/14/20 03/14/20 03/14/20 Range/Units 05:56 05:56 05:56 WBC 11.6 H (5.0-10.0) 10^3/uL RBC 3.96 L (4.2-5.4) 10^6/uL Hgb 11.3 L D (12.0-16.0) g/dL Hct 36.2 L (37.0-47.0) % MCV 91.4 D (80-100) fL MCH 28.5 (27.0-34.0) pg MCHC 31.2 L (33.0-35.0) g/dL Plt Count 120 L (150-450) 10^3/uL Neut % (Auto) 76.0 H (42.2-75.2) % Lymph % (Auto) 13.1 L (20.5-50.1) % [place] % (Auto) 9.9 H (2-8) % Eos % (Auto) 0.3 L (1.0-3.0) % Baso % (Auto) 0.7 (0.0-1.0) % PT 15.1 H (9.0-12.0) SEC INR 1.6 H (0.9-1.2) Sodium 139 (136-145) mmol/L Potassium 3.7 (3.5-5.1) mmol/L Chloride 99 (98-107) mmol/L Carbon Dioxide 35 H (21-32) mmol/L Anion Gap 8.7 (7-13) mEq/L BUN 25 H (7-18) mg/dL Creatinine 1.95 H (0.55-1.02) mg/dL Est Cr Clr Drug Dosing 20.62 mL/min Estimated GFR (MDRD) 25 Glucose 214 H (74-99) mg/dL POC Glucose (83-110) mg/dl Calcium 8.0 L (8.5-10.1) mg/dL 03/14/20 Range/Units 08:03 WBC (5.0-10.0) 10^3/uL RBC (4.2-5.4) 10^6/uL Hgb (12.0-16.0) g/dL Hct (37.0-47.0) % MCV (80-100) fL MCH (27.0-34.0) pg MCHC (33.0-35.0) g/dL Plt Count (150-450) 10^3/uL Neut % (Auto) (42.2-75.2) % Lymph % (Auto) (20.5-50.1) % [place] % (Auto) (2-8) % Eos % (Auto) (1.0-3.0) % Baso % (Auto) (0.0-1.0) % PT (9.0-12.0) SEC INR (0.9-1.2) Sodium (136-145) mmol/L Potassium (3.5-5.1) mmol/L Chloride (98-107) mmol/L Carbon Dioxide (21-32) mmol/L Anion Gap (7-13) mEq/L BUN (7-18) mg/dL Creatinine (0.55-1.02) mg/dL Est Cr Clr Drug Dosing mL/min Estimated GFR (MDRD) Glucose (74-99) mg/dL POC Glucose 239 H (83-110) mg/dl Calcium (8.5-10.1) mg/dL Obed Results Last 24 Hours: Microbiology 03/13/20 02:38 Aerobic Blood Culture - Preliminary Blood NO GROWTH AFTER 1 DAY Anaerobic Blood Culture - Final 03/12/20 22:42 Aerobic Blood Culture - Preliminary Blood - Venous - Iv Start NO GROWTH AFTER 1 DAY Anaerobic Blood Culture - Preliminary NO GROWTH AFTER 1 DAY Med Orders - Current: Current Medications Acetaminophen (Tylenol) 650 mg PO Q4H PRN PRN Reason: Pain (mild 1-3 )/fever Last Admin: 03/14/20 04:49 Dose: 650 mg Documented by: Acetaminophen (Tylenol Extra Strength) 1,000 mg PO BID [facility] Last Admin: 03/14/20 09:18 Dose: 1,000 mg Documented by: Amlodipine Besylate (Norvasc) 5 mg PO 1200 [facility] Last Admin: 03/13/20 13:17 Dose: 5 mg Documented by: Bumetanide (Bumex) 1.5 mg IVPUSH BID [facility] Stop: 03/14/20 12:00 Last Admin: 03/14/20 09:19 Dose: 1.5 mg Documented by: Bumetanide (Bumex) 1 mg IVPUSH DAILY [facility] Clopidogrel Bisulfate (Plavix) 75 mg PO DAILY [facility] Last Admin: 03/14/20 09:18 Dose: 75 mg Documented by: Dextrose/Water (Dextrose 50% In Water) 50 ml IV ASDIRECTED PRN PRN Reason: Hypoglycemia Diphenhydramine HCl (Benadryl) 25 mg PO BEDTIME [facility] Last Admin: 03/13/20 21:01 Dose: 25 mg Documented by: Docusate Sodium (Colace) 100 mg PO DAILY PRN PRN Reason: Constipation Glucagon (Glucagen) 1 mg IM ASDIRECTED PRN PRN Reason: Hypoglycemia Piperacillin Sod/Tazobactam (Sod 2.25 gm/ Sodium Chloride) 50 mls @ 100 mls/hr IV Q6HR [facility] Last Admin: 03/14/20 05:30 Dose: 100 mls/hr Documented by: Azithromycin 500 mg/ Sodium (Chloride) 250 mls @ 250 mls/hr IV Q24H [facility] Influenza Virus Vaccine (Pharmacy To Dose - Influenza Vaccine) 1 each IM DAILY [facility] Last Admin: 03/14/20 09:19 Dose: Not Given Documented by: Insulin Human Lispro (Humalog) 0 unit SUBCUT WITHMEALSANDBED [facility]; Protocol Last Admin: 03/14/20 09:19 Dose: 4 units Documented by: Metoprolol Tartrate (Lopressor) 200 mg PO BID [facility] Last Admin: 03/14/20 09:17 Dose: 200 mg Documented by: Non-Formulary Medication (Hydralazine [Apresoline]) 10 mg PO BID [facility] Nystatin (Nystop) 0 gm TOP BID [facility] Last Admin: 03/14/20 09:20 Dose: 1 applicful Documented by: Potassium Chloride (Klor-Con 10) 10 meq PO BID [facility] Last Admin: 03/14/20 09:18 Dose: 10 meq Documented by: Pravastatin Sodium (Pravachol) 80 mg PO BEDTIME [facility] Last Admin: 03/13/20 21:03 Dose: 80 mg Documented by: Terazosin HCl (Hytrin) 10 mg PO BID [facility] Last Admin: 03/14/20 09:17 Dose: 10 mg Documented by: Warfarin Sodium (Pharmacy To Dose - Warfarin) 1 dose .XX ASDIRECTED [facility] Warfarin Sodium (Coumadin) 5 mg PO ONETIME ONE Stop: 03/14/20 14:01 Discontinued Medications Azithromycin (Zithromax) Confirm Administered Dose 500 mg .ROUTE .STK-MED ONE Stop: 03/14/20 03:38 Last Admin: 03/14/20 03:44 Dose: Not Given Documented by: Bumetanide (Bumex) 1.5 mg IVPUSH BID ONE Stop: 03/13/20 04:16 Last Admin: 03/13/20 05:31 Dose: 1.5 mg Documented by: Furosemide (Lasix) 40 mg IVPUSH BID [facility] Piperacillin Sod/Tazobactam (Sod 3.375 gm/ Sodium Chloride) 100 mls @ 200 mls/hr IV Q6H [facility] Azithromycin 500 mg/ Sodium (Chloride) 250 mls @ 250 mls/hr IV Q24H [facility] Last Admin: 03/14/20 03:44 Dose: 100 mls/hr Documented by: Piperacillin Sod/Tazobactam (Sod 3.375 gm/ Sodium Chloride) 100 mls @ 200 mls/hr IV ONETIME ONE Stop: 03/13/20 06:14 Last Admin: 03/13/20 06:52 Dose: 200 mls/hr Documented by: Insulin Glargine (Lantus) 55 unit SUBCUT BEDTIME [facility] Insulin Human Lispro (Humalog) 17 unit SUBCUT ACBREAKFAST [facility] Insulin Human Lispro (Humalog) 17 unit SUBCUT ACLUNCH [facility] Last Admin: 03/13/20 13:12 Dose: 17 units Documented by: Insulin Human Lispro (Humalog) 17 unit SUBCUT WITHDINNER@1700 [facility] Last Admin: 03/13/20 17:31 Dose: Not Given Documented by: Insulin Human Lispro (Humalog) 17 unit SUBCUT WITHBREAKFAST [facility] Last Admin: 03/13/20 08:53 Dose: 17 units Documented by: Ondansetron HCl (Zofran) 4 mg IVPUSH ONETIME ONE Stop: 03/12/20 23:08 Last Admin: 03/12/20 23:12 Dose: 4 mg Documented by: Warfarin Sodium (Pharmacy To Dose - Warfarin) 1 dose .XX ASDIRECTED [facility] Warfarin Sodium (Coumadin) 3 mg PO ONETIME ONE Stop: 03/13/20 14:01 Last Admin: 03/13/20 13:13 Dose: 3 mg Documented by: - Exam Quality Assessment: Supplemental Oxygen General: Alert, Oriented HEENT: Pupils Equal, Pupils Reactive, EOMI, Mucous Membr. Moist/[place] Neck: Supple Lungs: Clear to Auscultation, Normal Respiratory Effort Cardiovascular: Regular Rate, Regular Rhythm GI/Abdominal Exam: Normal Bowel Sounds, Soft, Non-Tender, No Organomegaly, No Distention, No Abnormal Bruit, No Mass, Pelvis Stable Back Exam: Normal Inspection, Full Range of Motion Extremities: Pedal Edema Skin: Warm, Dry, Intact Neurological: No New Focal Deficit Psy/Mental Status: Alert, Normal Affect, Normal Mood Sepsis Event Note - Evaluation Sepsis Screening Result: No Definite Risk - Focused Exam Vital Signs: Vital Signs Temp Pulse Pulse Resp BP BP Pulse Ox 03/14/20 09:17 70 112/65 03/14/20 07:51 97.7 F 61 20 112/65 86 L 03/14/20 04:02 94 L 03/14/20 04:00 97.6 F 63 16 133/89 94 L Pulse Ox 03/14/20 09:17 03/14/20 07:51 03/14/20 04:02 94 L 03/14/20 04:00 - Problem List Review Problem List Initiated/Reviewed/Updated: Yes - My Orders Last 24 Hours: My Active Orders 03/14/20 09:52 URINALYSIS W/MICROSCOPIC [UA W/MICROSCOPIC] [URIN] Routine - Plan Plan:: Ms. Au is a 74-year-old pleasant morbidly obese female with past medical history of stroke, history of renal artery stenosis with a stent in May 2016, obstructive sleep apnea. Diabetes type 2, noninsulin-dependent with Minimal proteinuria, hyperlipidemia, hypertension, and coronary artery disease. She presented to ER with progressive shortness of breath and had low grade temperature with leukocytosis. CT of chest showed scant bilateral pleural effusion and CXR showed no acute infiltrate. U/A was negative for UTI. Impression and Plan: 1. Increased shortness of breath with fever and Leukocytosis: Pt had CT and CXR showing no acute process Blood culture no growth to date Repeat urinalysis -Continue empiric antibiotics with Zosyn and Azithromycin -Continue Bumex IV 1.5 mg BID -Continue NC oxygen and try to wean off as tolerated 2. TULIO: The etiology not clear and likely from Medication and likely cardiorenal syndrome also possible infectious origin -Continue diuresis with bumex 1.5 mg IV BID -Continue strict I/O Obtain daily weights 3. Hypertension: BP is acceptable and will continue Home medication, Amlodipine, Metoprolol and Hydralazine 4. Edema of extremities: She has trace to +1 pitting edema -Continue diuresis as above Obtain BNP 5. Diabetes II: ( Insulin Dependent): will continue Insulin 6. Coronary Artery disease: Continue statin/plavix and Metoprolol can not tolerate SHE/ARB DVT prophylaxis: pt is on coumadin and pharmacy to dose Code Status: Discuss with pt and she is Full Code
[2020-03-14] MEDS: Non-Formulary Medication 1 Each (Hydralazine [Apresoline] 10 MG) PO SCH ×2 (11:50→14:38)
[2020-03-14] MEDS: amLODIPine 5 MG Tab PO SCH (13:14)
[2020-03-14] MEDS ORDERED: Warfarin 5 MG Tab PO ONE (14:00)
[2020-03-14] MEDS: diphenhydrAMINE 25 MG Tab PO SCH (21:13)
[2020-03-14] MEDS: Pravastatin 20 MG Tab PO SCH (21:14)
[2020-03-14] MEDS: INSULIN DEGLUDEC SUBCUT SCH ×2 (21:19→22:54)
[2020-03-14] MEDS: Melatonin 3 MG Tab PO PRN (22:51)
[2020-03-15] MEDS: Piperacillin/Tazobactam 2.25 GM in Sodium Chloride 0.9% 50 ML IV SCH ×4 (00:07→17:20)
[2020-03-15] MEDS: Azithromycin 500 MG in Sodium Chloride 0.9% 250 ML IV SCH (04:36)
[2020-03-15 07:19] LABS: ANION GAP 8.8 mEq/L (7-13)
[2020-03-15] MEDS: Metoprolol Tartrate 50 MG Tab PO SCH ×2 (08:48→21:36)
[2020-03-15] MEDS: Insulin Lispro 100 Units/ML 3 ML Vial SUBCUT SCH ×4 (08:48→21:32)
[2020-03-15] MEDS: Terazosin 5 MG Cap PO SCH ×2 (08:51→21:40)
[2020-03-15] MEDS: Acetaminophen 500 MG Tab PO SCH ×2 (08:51→21:41)
[2020-03-15] MEDS: Potassium Chloride 10 MEQ Tab.ER PO SCH ×2 (08:51→21:36)
[2020-03-15] MEDS: Clopidogrel 75 MG Tab PO SCH (08:51)
[2020-03-15] MEDS: Nystatin Topical Powder 30 GM Bottle TOP SCH ×2 (08:54→22:12)
[2020-03-15] MEDS ORDERED: Bumetanide 1 MG/4 ML MDV IVPUSH SCH ×2 (09:00)
--- NOTE | 2020-03-15 10:57 | PCM.PN ---
- General Info Date of Service: 03/15/20 Admission Dx/Problem (Free Text): Admission Diagnosis/Problem Admission Diagnosis/Problem CHF, Congestive heart failure, acute Kidney Injury and Fever of unknown origin Subjective Update: Patient seen and examined today. No significant clinical status change from yesterday. Net negative I's and O's of 1.4 L. Afebrile overnight. Functional Status: Reports: Pain Controlled - Review of Systems General: Reports: No Symptoms HEENT: Reports: No Symptoms Pulmonary: Reports: Shortness of Breath Cardiovascular: Reports: Edema Gastrointestinal: Reports: No Symptoms Genitourinary: Reports: No Symptoms Musculoskeletal: Reports: No Symptoms Skin: Reports: No Symptoms Neurological: Reports: No Symptoms Psychiatric: Reports: No Symptoms - Patient Data Vitals - Most Recent: Last Vital Signs Temp 98.3 F 03/15/20 07:57 Pulse 58 L 03/15/20 08:48 Resp 20 03/15/20 07:57 BP 146/68 H 03/15/20 08:51 Pulse Ox 93 L 03/15/20 07:57 Weight - Most Recent: 271 lb 3.2 oz I&O - Last 24 Hours: Intake & Output 03/14/20 03/15/20 03/15/20 22:59 06:59 14:59 Intake Total 240 303 Output Total 250 750 Balance -10 Lab Results Last 24 Hours: Laboratory Results - last 24 hr 03/14/20 03/14/20 03/14/20 Range/Units 11:05 11:15 16:46 WBC (5.0-10.0) 10^3/uL RBC (4.2-5.4) 10^6/uL Hgb (12.0-16.0) g/dL Hct (37.0-47.0) % MCV (80-100) fL MCH (27.0-34.0) pg MCHC (33.0-35.0) g/dL Plt Count (150-450) 10^3/uL PT (9.0-12.0) SEC INR (0.9-1.2) Sodium (136-145) mmol/L Potassium (3.5-5.1) mmol/L Chloride (98-107) mmol/L Carbon Dioxide (21-32) mmol/L Anion Gap (7-13) mEq/L BUN (7-18) mg/dL Creatinine (0.55-1.02) mg/dL Est Cr Clr Drug Dosing mL/min Estimated GFR (MDRD) Glucose (74-99) mg/dL POC Glucose 323 H 272 H (83-110) mg/dl Calcium (8.5-10.1) mg/dL Magnesium (1.8-2.4) mg/dL Urine Color Yellow (YELLOW) Urine Appearance Slightly cloudy (CLEAR) Urine pH 7.0 (5.0-9.0) Ur Specific [place] 1.020 (1.005-1.030) Urine Protein Negative (NEGATIVE) Urine Glucose (UA) 500 H (NEGATIVE) Urine Ketones Negative (NEGATIVE) Urine Occult Blood Moderate H (NEGATIVE) Urine Nitrite Negative (NEGATIVE) Urine Bilirubin Negative (NEGATIVE) Urine Urobilinogen 0.2 (0.2-1.0) mg/dL Ur Leukocyte Esterase Negative (NEGATIVE) Urine RBC 20-30 H /HPF Urine WBC 0-5 (0-5/HPF) /HPF Ur Epithelial Cells Few (NOT SEEN) /HPF Urine Bacteria Rare (0-FEW/HPF) /HPF 03/14/20 03/15/20 03/15/20 Range/Units 21:10 05:55 05:55 WBC 9.4 (5.0-10.0) 10^3/uL RBC 4.05 L (4.2-5.4) 10^6/uL Hgb 11.7 L (12.0-16.0) g/dL Hct 36.3 L (37.0-47.0) % MCV 89.6 (80-100) fL MCH 28.9 (27.0-34.0) pg MCHC 32.2 L (33.0-35.0) g/dL Plt Count 124 L (150-450) 10^3/uL PT (9.0-12.0) SEC INR (0.9-1.2) Sodium 138 (136-145) mmol/L Potassium 3.8 (3.5-5.1) mmol/L Chloride 100 (98-107) mmol/L Carbon Dioxide 33 H (21-32) mmol/L Anion Gap 8.8 (7-13) mEq/L BUN 20 H (7-18) mg/dL Creatinine 1.61 H (0.55-1.02) mg/dL Est Cr Clr Drug Dosing 24.97 mL/min Estimated GFR (MDRD) 31 Glucose 200 H (74-99) mg/dL POC Glucose 310 H (83-110) mg/dl Calcium 7.9 L (8.5-10.1) mg/dL Magnesium 2.0 (1.8-2.4) mg/dL Urine Color (YELLOW) Urine Appearance (CLEAR) Urine pH (5.0-9.0) Ur Specific [place] (1.005-1.030) Urine Protein (NEGATIVE) Urine Glucose (UA) (NEGATIVE) Urine Ketones (NEGATIVE) Urine Occult Blood (NEGATIVE) Urine Nitrite (NEGATIVE) Urine Bilirubin (NEGATIVE) Urine Urobilinogen (0.2-1.0) mg/dL Ur Leukocyte Esterase (NEGATIVE) Urine RBC /HPF Urine WBC (0-5/HPF) /HPF Ur Epithelial Cells (NOT SEEN) /HPF Urine Bacteria (0-FEW/HPF) /HPF 03/15/20 03/15/20 Range/Units 07:44 09:20 WBC (5.0-10.0) 10^3/uL RBC (4.2-5.4) 10^6/uL Hgb (12.0-16.0) g/dL Hct (37.0-47.0) % MCV (80-100) fL MCH (27.0-34.0) pg MCHC (33.0-35.0) g/dL Plt Count (150-450) 10^3/uL PT 14.9 H (9.0-12.0) SEC INR 1.6 H (0.9-1.2) Sodium (136-145) mmol/L Potassium (3.5-5.1) mmol/L Chloride (98-107) mmol/L Carbon Dioxide (21-32) mmol/L Anion Gap (7-13) mEq/L BUN (7-18) mg/dL Creatinine (0.55-1.02) mg/dL Est Cr Clr Drug Dosing mL/min Estimated GFR (MDRD) Glucose (74-99) mg/dL POC Glucose 204 H (83-110) mg/dl Calcium (8.5-10.1) mg/dL Magnesium (1.8-2.4) mg/dL Urine Color (YELLOW) Urine Appearance (CLEAR) Urine pH (5.0-9.0) Ur Specific [place] (1.005-1.030) Urine Protein (NEGATIVE) Urine Glucose (UA) (NEGATIVE) Urine Ketones (NEGATIVE) Urine Occult Blood (NEGATIVE) Urine Nitrite (NEGATIVE) Urine Bilirubin (NEGATIVE) Urine Urobilinogen (0.2-1.0) mg/dL Ur Leukocyte Esterase (NEGATIVE) Urine RBC /HPF Urine WBC (0-5/HPF) /HPF Ur Epithelial Cells (NOT SEEN) /HPF Urine Bacteria (0-FEW/HPF) /HPF Obed Results Last 24 Hours: Microbiology 03/13/20 02:38 Aerobic Blood Culture - Preliminary Blood NO GROWTH AFTER 2 DAYS Anaerobic Blood Culture - Final 03/12/20 22:42 Aerobic Blood Culture - Preliminary Blood - Venous - Iv Start NO GROWTH AFTER 2 DAYS Anaerobic Blood Culture - Preliminary NO GROWTH AFTER 2 DAYS Med Orders - Current: Current Medications Acetaminophen (Tylenol) 650 mg PO Q4H PRN PRN Reason: Pain (mild 1-3 )/fever Last Admin: 03/14/20 04:49 Dose: 650 mg Documented by: Acetaminophen (Tylenol Extra Strength) 1,000 mg PO BID [facility] Last Admin: 03/15/20 08:51 Dose: 1,000 mg Documented by: Amlodipine Besylate (Norvasc) 5 mg PO 1200 [facility] Last Admin: 03/14/20 13:14 Dose: 5 mg Documented by: Bumetanide (Bumex) 2 mg IVPUSH TID [facility] Clopidogrel Bisulfate (Plavix) 75 mg PO DAILY [facility] Last Admin: 03/15/20 08:51 Dose: 75 mg Documented by: Dextrose/Water (Dextrose 50% In Water) 50 ml IV ASDIRECTED PRN PRN Reason: Hypoglycemia Diphenhydramine HCl (Benadryl) 25 mg PO BEDTIME [facility] Last Admin: 03/14/20 21:13 Dose: 25 mg Documented by: Docusate Sodium (Colace) 100 mg PO DAILY PRN PRN Reason: Constipation Glucagon (Glucagen) 1 mg IM ASDIRECTED PRN PRN Reason: Hypoglycemia Piperacillin Sod/Tazobactam (Sod 2.25 gm/ Sodium Chloride) 50 mls @ 100 mls/hr IV Q6HR [facility] Last Admin: 03/15/20 05:52 Dose: 100 mls/hr Documented by: Azithromycin 500 mg/ Sodium (Chloride) 250 mls @ 250 mls/hr IV Q24H [facility] Last Admin: 03/15/20 04:36 Dose: 250 mls/hr Documented by: Influenza Virus Vaccine (Pharmacy To Dose - Influenza Vaccine) 1 each IM DAILY [facility] Last Admin: 03/15/20 08:53 Dose: Not Given Documented by: Insulin Human Lispro (Humalog) 0 unit SUBCUT WITHMEALSANDBED [facility]; Protocol Last Admin: 03/15/20 08:48 Dose: 4 units Documented by: Melatonin (Melatonin) 3 mg PO BEDTIME PRN PRN Reason: Sleep Last Admin: 03/14/20 22:51 Dose: 3 mg Documented by: Metoprolol Tartrate (Lopressor) 200 mg PO BID [facility] Last Admin: 03/15/20 08:48 Dose: 200 mg Documented by: Nystatin (Nystop) 0 gm TOP BID [facility] Last Admin: 03/15/20 08:54 Dose: 1 applicful Documented by: Insulin Degludec ( Tresiba) Inj *Own Med* 0 each SUBCUT BEDTIME [facility] Last Admin: 03/14/20 22:54 Dose: 55 each Documented by: Potassium Chloride (Klor-Con 10) 10 meq PO BID [facility] Last Admin: 03/15/20 08:51 Dose: 10 meq Documented by: Pravastatin Sodium (Pravachol) 80 mg PO BEDTIME [facility] Last Admin: 03/14/20 21:14 Dose: 80 mg Documented by: Sodium Chloride (Saline Flush) 10 ml FLUSH ASDIRECTED PRN PRN Reason: Keep Vein Open Terazosin HCl (Hytrin) 10 mg PO BID [facility] Last Admin: 03/15/20 08:51 Dose: 10 mg Documented by: Warfarin Sodium (Pharmacy To Dose - Warfarin) 1 dose .XX ASDIRECTED [facility] Warfarin Sodium (Coumadin) 5 mg PO ONETIME ONE Stop: 03/15/20 14:01 Discontinued Medications Azithromycin (Zithromax) Confirm Administered Dose 500 mg .ROUTE .STK-MED ONE Stop: 03/14/20 03:38 Last Admin: 03/14/20 03:44 Dose: Not Given Documented by: Bumetanide (Bumex) 1.5 mg IVPUSH BID ONE Stop: 03/13/20 04:16 Last Admin: 03/13/20 05:31 Dose: 1.5 mg Documented by: Bumetanide (Bumex) 1.5 mg IVPUSH BID [facility] Stop: 03/14/20 12:00 Last Admin: 03/14/20 09:19 Dose: 1.5 mg Documented by: Bumetanide (Bumex) 1 mg IVPUSH DAILY [facility] Bumetanide (Bumex) 2 mg IVPUSH BID [facility] Last Admin: 03/15/20 08:50 Dose: 2 mg Documented by: Furosemide (Lasix) 40 mg IVPUSH BID [facility] Piperacillin Sod/Tazobactam (Sod 3.375 gm/ Sodium Chloride) 100 mls @ 200 mls/hr IV Q6H [facility] Azithromycin 500 mg/ Sodium (Chloride) 250 mls @ 250 mls/hr IV Q24H [facility] Last Admin: 03/14/20 03:44 Dose: 100 mls/hr Documented by: Piperacillin Sod/Tazobactam (Sod 3.375 gm/ Sodium Chloride) 100 mls @ 200 mls/hr IV ONETIME ONE Stop: 03/13/20 06:14 Last Admin: 03/13/20 06:52 Dose: 200 mls/hr Documented by: Insulin Glargine (Lantus) 55 unit SUBCUT BEDTIME [facility] Insulin Human Lispro (Humalog) 17 unit SUBCUT ACBREAKFAST [facility] Insulin Human Lispro (Humalog) 17 unit SUBCUT ACLUNCH [facility] Last Admin: 03/13/20 13:12 Dose: 17 units Documented by: Insulin Human Lispro (Humalog) 17 unit SUBCUT WITHDINNER@1700 [facility] Last Admin: 03/13/20 17:31 Dose: Not Given Documented by: Insulin Human Lispro (Humalog) 17 unit SUBCUT WITHBREAKFAST [facility] Last Admin: 03/13/20 08:53 Dose: 17 units Documented by: Non-Formulary Medication (Hydralazine [Apresoline]) 10 mg PO BID [facility] Last Admin: 03/14/20 14:38 Dose: Not Given Documented by: Ondansetron HCl (Zofran) 4 mg IVPUSH ONETIME ONE Stop: 03/12/20 23:08 Last Admin: 03/12/20 23:12 Dose: 4 mg Documented by: Warfarin Sodium (Pharmacy To Dose - Warfarin) 1 dose .XX ASDIRECTED [facility] Warfarin Sodium (Coumadin) 3 mg PO ONETIME ONE Stop: 03/13/20 14:01 Last Admin: 03/13/20 13:13 Dose: 3 mg Documented by: Warfarin Sodium (Coumadin) 5 mg PO ONETIME ONE Stop: 03/14/20 14:01 Last Admin: 03/14/20 13:15 Dose: 5 mg Documented by: - Exam Quality Assessment: Supplemental Oxygen General: Alert, Oriented HEENT: Pupils Equal, Pupils Reactive, EOMI, Mucous Membr. Moist/[place] Neck: Supple Lungs: Clear to Auscultation, Normal Respiratory Effort Cardiovascular: Regular Rate, Regular Rhythm GI/Abdominal Exam: Normal Bowel Sounds, Soft, Non-Tender, No Organomegaly, No Distention, No Abnormal Bruit, No Mass, Pelvis Stable Back Exam: Normal Inspection, Full Range of Motion Extremities: Pedal Edema Skin: Warm, Dry, Intact Neurological: No New Focal Deficit Psy/Mental Status: Alert, Normal Affect, Normal Mood Sepsis Event Note - Evaluation Sepsis Screening Result: No Definite Risk - Focused Exam Vital Signs: Vital Signs Temp Pulse Pulse Resp BP BP Pulse Ox 03/15/20 08:51 146/68 H 03/15/20 08:48 58 L 146/68 H 03/15/20 07:57 98.3 F 58 L 20 146/68 H 93 L 03/15/20 04:00 98.4 F 63 20 112/68 97 Pulse Ox 03/15/20 08:51 03/15/20 08:48 03/15/20 07:57 03/15/20 04:00 97 - Problem List Review Problem List Initiated/Reviewed/Updated: Yes - My Orders Last 24 Hours: My Active Orders 03/14/20 15:00 Echo Comp wo Cont [US] Routine 03/14/20 21:00 Patient's Own Medication [Ptom] 0 each SUBCUT BEDTIME 03/14/20 22:39 Melatonin 3 mg PO BEDTIME PRN 03/15/20 10:00 Sodium Chloride 0.9% [Saline Flush] 10 ml FLUSH ASDIRECTED PRN 03/15/20 14:00 Bumetanide [Bumex] 2 mg IVPUSH TID Warfarin [Coumadin] 5 mg PO ONETIME ONE 03/16/20 06:00 INR,PT,PROTHROMBIN TIME [COAG] DAILY 03/17/20 06:00 INR,PT,PROTHROMBIN TIME [COAG] DAILY 03/18/20 06:00 INR,PT,PROTHROMBIN TIME [COAG] DAILY 03/19/20 06:00 INR,PT,PROTHROMBIN TIME [COAG] DAILY 03/20/20 06:00 INR,PT,PROTHROMBIN TIME [COAG] DAILY 03/21/20 06:00 INR,PT,PROTHROMBIN TIME [COAG] DAILY 03/22/20 06:00 INR,PT,PROTHROMBIN TIME [COAG] DAILY - Plan Plan:: Ms. Au is a 74-year-old pleasant morbidly obese female with past medical history of stroke, history of renal artery stenosis with a stent in May 2016, obstructive sleep apnea. Diabetes type 2, noninsulin-dependent with Minimal proteinuria, hyperlipidemia, hypertension, and coronary artery disease. She presented to ER with progressive shortness of breath and had low grade temperature with leukocytosis. CT of chest showed scant bilateral pleural effusion and CXR showed no acute infiltrate. U/A was negative for UTI. Impression and Plan: 1. Acute hypoxic respiratory failure Probable pneumonia Patient presented with shortness of breath with fever and leukocytosis: Pt had CT and CXR showing no acute process. Suspect patient was developing early signs of pneumonia at background CHF exacerbation. Blood culture no growth to date Repeat urinalysis negative -Continue empiric antibiotics with Zosyn and Azithromycin -Continue [place] oxygen and try to wean off as tolerated 2. TULIO: The etiology not clear and likely from Medication and likely cardiorenal syndrome also possible infectious origin -Continue diuresis -Continue strict I/O Obtain daily weights Renal status slowly improving 3. Hypertension: BP is acceptable and will continue Home medication, Amlodipine, Metoprolol and Hydralazine 4. Acute on chronic systolic and diastolic CHF Patient presented with severe bilateral lower extremity edema. BNP elevated at 199. -Increase Bumex to 2 mg 3 times daily Transthoracic echo report pending 5. Diabetes II: ( Insulin Dependent): will continue Insulin 6. Coronary Artery disease: Continue statin/plavix and Metoprolol can not tolerate SHE/ARB DVT prophylaxis: pt is on coumadin and pharmacy to dose Code Status: Discuss with pt and she is Full Code
[2020-03-15] MEDS: amLODIPine 5 MG Tab PO SCH (13:31)
[2020-03-15] MEDS: Sodium Chloride 0.9% 10 ML Syringe FLUSH PRN ×6 (13:38→22:25)
[2020-03-15] MEDS ORDERED: Warfarin 5 MG Tab PO ONE (14:00)
[2020-03-15] MEDS: Bumetanide 1 MG/4 ML MDV IVPUSH SCH ×2 (14:09→22:14)
[2020-03-15] MEDS: Pravastatin 20 MG Tab PO SCH (21:35)
[2020-03-15] MEDS: Melatonin 3 MG Tab PO PRN (21:41)
[2020-03-15] MEDS: diphenhydrAMINE 25 MG Tab PO SCH (21:41)
[2020-03-15] MEDS: INSULIN DEGLUDEC SUBCUT SCH (21:53)
[2020-03-16] MEDS: Sodium Chloride 0.9% 10 ML Syringe FLUSH PRN ×8 (00:17→21:59)
[2020-03-16] MEDS: Piperacillin/Tazobactam 2.25 GM in Sodium Chloride 0.9% 50 ML IV SCH ×2 (00:19→05:25)
[2020-03-16] MEDS: Azithromycin 500 MG in Sodium Chloride 0.9% 250 ML IV SCH (04:04)
[2020-03-16 07:10] LABS: ANION GAP 7.4 mEq/L (7-13)
[2020-03-16] MEDS ORDERED: Potassium Chloride 10 MEQ Tab.ER PO ONE (07:56)
[2020-03-16] MEDS: Metoprolol Tartrate 50 MG Tab PO SCH (08:44)
[2020-03-16] MEDS: Terazosin 5 MG Cap PO SCH ×2 (08:48→21:32)
[2020-03-16] MEDS: Acetaminophen 500 MG Tab PO SCH ×2 (08:48→21:41)
[2020-03-16] MEDS: Insulin Lispro 100 Units/ML 3 ML Vial SUBCUT SCH ×4 (08:50→22:05)
[2020-03-16] MEDS: Clopidogrel 75 MG Tab PO SCH (08:50)
[2020-03-16] MEDS: Bumetanide 1 MG/4 ML MDV IVPUSH SCH ×3 (08:51→21:47)
[2020-03-16] MEDS: Nystatin Topical Powder 30 GM Bottle TOP SCH ×2 (08:58→21:43)
[2020-03-16] MEDS: Potassium Chloride 10 MEQ Tab.ER PO SCH ×2 (09:10→17:56)
[2020-03-16] MEDS ORDERED: Levofloxacin 500 MG Tab PO SCH (09:30)
[2020-03-16] MEDS: Levofloxacin 250 MG Tab PO SCH (10:48)
[2020-03-16] MEDS: Levofloxacin 500 MG Tab PO SCH (10:48)
--- NOTE | 2020-03-16 11:38 | PCM.PN ---
- General Info Date of Service: 03/16/20 Admission Dx/Problem (Free Text): Admission Diagnosis/Problem Admission Diagnosis/Problem CHF, Congestive heart failure, acute Kidney Injury and Fever of unknown origin Subjective Update: Patient seen and examined today. patient requiring oxygen. Afebrile overnight. Functional Status: Reports: Pain Controlled - Review of Systems General: Reports: No Symptoms HEENT: Reports: No Symptoms Pulmonary: Reports: Shortness of Breath Cardiovascular: Reports: Edema Gastrointestinal: Reports: No Symptoms Genitourinary: Reports: No Symptoms Musculoskeletal: Reports: No Symptoms Skin: Reports: No Symptoms Neurological: Reports: No Symptoms Psychiatric: Reports: No Symptoms - Patient Data Vitals - Most Recent: Last Vital Signs Temp 97.2 F 03/16/20 08:11 Pulse 50 L 03/16/20 08:44 Resp 18 03/16/20 08:11 BP 147/76 H 03/16/20 08:48 Pulse Ox 96 03/16/20 08:11 Weight - Most Recent: 269 lb 12.8 oz I&O - Last 24 Hours: Intake & Output 03/15/20 03/16/20 03/16/20 22:59 06:59 14:59 Intake Total 422 401 540 Output Total 1900 850 Balance -1478 401 -310 Lab Results Last 24 Hours: Laboratory Results - last 24 hr 03/15/20 03/15/20 03/15/20 Range/Units 11:27 16:47 21:15 PT (9.0-12.0) SEC INR (0.9-1.2) Sodium (136-145) mmol/L Potassium (3.5-5.1) mmol/L Chloride (98-107) mmol/L Carbon Dioxide (21-32) mmol/L Anion Gap (7-13) mEq/L BUN (7-18) mg/dL Creatinine (0.55-1.02) mg/dL Est Cr Clr Drug Dosing mL/min Estimated GFR (MDRD) Glucose (74-99) mg/dL POC Glucose 209 H 211 H 215 H (83-110) mg/dl Calcium (8.5-10.1) mg/dL 03/16/20 03/16/20 03/16/20 Range/Units 06:33 06:33 07:31 PT 15.4 H (9.0-12.0) SEC INR 1.6 H (0.9-1.2) Sodium 140 (136-145) mmol/L Potassium 3.4 L (3.5-5.1) mmol/L Chloride 102 (98-107) mmol/L Carbon Dioxide 34 H (21-32) mmol/L Anion Gap 7.4 (7-13) mEq/L BUN 17 (7-18) mg/dL Creatinine 1.43 H (0.55-1.02) mg/dL Est Cr Clr Drug Dosing 28.12 mL/min Estimated GFR (MDRD) 36 Glucose 154 H (74-99) mg/dL POC Glucose 161 H (83-110) mg/dl Calcium 8.0 L (8.5-10.1) mg/dL 03/16/20 Range/Units 11:29 PT (9.0-12.0) SEC INR (0.9-1.2) Sodium (136-145) mmol/L Potassium (3.5-5.1) mmol/L Chloride (98-107) mmol/L Carbon Dioxide (21-32) mmol/L Anion Gap (7-13) mEq/L BUN (7-18) mg/dL Creatinine (0.55-1.02) mg/dL Est Cr Clr Drug Dosing mL/min Estimated GFR (MDRD) Glucose (74-99) mg/dL POC Glucose 213 H (83-110) mg/dl Calcium (8.5-10.1) mg/dL Obed Results Last 24 Hours: Microbiology 03/13/20 02:38 Aerobic Blood Culture - Preliminary Blood NO GROWTH AFTER 3 DAYS Anaerobic Blood Culture - Final 03/12/20 22:42 Aerobic Blood Culture - Preliminary Blood - Venous - Iv Start NO GROWTH AFTER 3 DAYS Anaerobic Blood Culture - Preliminary NO GROWTH AFTER 3 DAYS Med Orders - Current: Current Medications Acetaminophen (Tylenol) 650 mg PO Q4H PRN PRN Reason: Pain (mild 1-3 )/fever Last Admin: 03/14/20 04:49 Dose: 650 mg Documented by: Acetaminophen (Tylenol Extra Strength) 1,000 mg PO BID [facility] Last Admin: 03/16/20 08:48 Dose: 1,000 mg Documented by: Amlodipine Besylate (Norvasc) 5 mg PO 1200 VALDO Last Admin: 03/15/20 13:31 Dose: 5 mg Documented by: Bumetanide (Bumex) 2 mg IVPUSH TID [facility] Last Admin: 03/16/20 08:51 Dose: 2 mg Documented by: Clopidogrel Bisulfate (Plavix) 75 mg PO DAILY [facility] Last Admin: 03/16/20 08:50 Dose: 75 mg Documented by: Dextrose/Water (Dextrose 50% In Water) 50 ml IV ASDIRECTED PRN PRN Reason: Hypoglycemia Diphenhydramine HCl (Benadryl) 25 mg PO BEDTIME [facility] Last Admin: 03/15/20 21:41 Dose: 25 mg Documented by: Docusate Sodium (Colace) 100 mg PO DAILY PRN PRN Reason: Constipation Glucagon (Glucagen) 1 mg IM ASDIRECTED PRN PRN Reason: Hypoglycemia Influenza Virus Vaccine (Pharmacy To Dose - Influenza Vaccine) 1 each IM DAILY [facility] Last Admin: 03/16/20 08:52 Dose: Not Given Documented by: Insulin Human Lispro (Humalog) 0 unit SUBCUT WITHMEALSANDBED [facility]; Protocol Last Admin: 03/16/20 08:50 Dose: 2 units Documented by: Levofloxacin (Levaquin) 500 mg PO Q48H [facility] Stop: 03/19/20 10:01 Last Admin: 03/16/20 10:48 Dose: 500 mg Documented by: Levofloxacin (Levaquin) 250 mg PO Q48H [facility] Last Admin: 03/16/20 10:48 Dose: 250 mg Documented by: Melatonin (Melatonin) 3 mg PO BEDTIME PRN PRN Reason: Sleep Last Admin: 03/15/20 21:41 Dose: 3 mg Documented by: Metolazone (Zaroxolyn) 5 mg PO ONETIME ONE Stop: 03/16/20 13:01 Metoprolol Tartrate (Lopressor) 200 mg PO BID [facility] Last Admin: 03/16/20 08:44 Dose: 200 mg Documented by: Nystatin (Nystop) 0 gm TOP BID [facility] Last Admin: 03/16/20 08:58 Dose: 1 applicful Documented by: Insulin Degludec ( Tresiba) Inj *Own Med* 0 each SUBCUT BEDTIME [facility] Last Admin: 03/15/20 21:53 Dose: 55 each Documented by: Potassium Chloride (Klor-Con 10) 20 meq PO BIDMEALS [facility] Last Admin: 03/16/20 09:10 Dose: 20 meq Documented by: Pravastatin Sodium (Pravachol) 80 mg PO BEDTIME [facility] Last Admin: 03/15/20 21:35 Dose: 80 mg Documented by: Sodium Chloride (Saline Flush) 10 ml FLUSH ASDIRECTED PRN PRN Reason: Keep Vein Open Last Admin: 03/16/20 08:59 Dose: 10 ml Documented by: Terazosin HCl (Hytrin) 10 mg PO BID [facility] Last Admin: 03/16/20 08:48 Dose: 10 mg Documented by: Warfarin Sodium (Pharmacy To Dose - Warfarin) 1 dose .XX ASDIRECTED [facility] Warfarin Sodium (Coumadin) 5 mg PO DAILY@1400 [facility] Stop: 03/16/20 14:01 Discontinued Medications Azithromycin (Zithromax) Confirm Administered Dose 500 mg .ROUTE .STK-MED ONE Stop: 03/14/20 03:38 Last Admin: 03/14/20 03:44 Dose: Not Given Documented by: Bumetanide (Bumex) 1.5 mg IVPUSH BID ONE Stop: 03/13/20 04:16 Last Admin: 03/13/20 05:31 Dose: 1.5 mg Documented by: Bumetanide (Bumex) 1.5 mg IVPUSH BID [facility] Stop: 03/14/20 12:00 Last Admin: 03/14/20 09:19 Dose: 1.5 mg Documented by: Bumetanide (Bumex) 1 mg IVPUSH DAILY [facility] Bumetanide (Bumex) 2 mg IVPUSH BID [facility] Last Admin: 03/15/20 08:50 Dose: 2 mg Documented by: Furosemide (Lasix) 40 mg IVPUSH BID [facility] Piperacillin Sod/Tazobactam (Sod 3.375 gm/ Sodium Chloride) 100 mls @ 200 mls/hr IV Q6H [facility] Azithromycin 500 mg/ Sodium (Chloride) 250 mls @ 250 mls/hr IV Q24H [facility] Last Admin: 03/14/20 03:44 Dose: 100 mls/hr Documented by: Piperacillin Sod/Tazobactam (Sod 3.375 gm/ Sodium Chloride) 100 mls @ 200 mls/hr IV ONETIME ONE Stop: 03/13/20 06:14 Last Admin: 03/13/20 06:52 Dose: 200 mls/hr Documented by: Piperacillin Sod/Tazobactam (Sod 2.25 gm/ Sodium Chloride) 50 mls @ 100 mls/hr IV Q6HR [facility] Last Admin: 03/16/20 05:25 Dose: 100 mls/hr Documented by: Azithromycin 500 mg/ Sodium (Chloride) 250 mls @ 250 mls/hr IV Q24H [facility] Last Admin: 03/16/20 04:04 Dose: 250 mls/hr Documented by: Insulin Glargine (Lantus) 55 unit SUBCUT BEDTIME [facility] Insulin Human Lispro (Humalog) 17 unit SUBCUT ACBREAKFAST [facility] Insulin Human Lispro (Humalog) 17 unit SUBCUT ACLUNCH [facility] Last Admin: 03/13/20 13:12 Dose: 17 units Documented by: Insulin Human Lispro (Humalog) 17 unit SUBCUT WITHDINNER@1700 [facility] Last Admin: 03/13/20 17:31 Dose: Not Given Documented by: Insulin Human Lispro (Humalog) 17 unit SUBCUT WITHBREAKFAST [facility] Last Admin: 03/13/20 08:53 Dose: 17 units Documented by: Levofloxacin (Levaquin) 500 mg PO Q24H [facility] Stop: 03/18/20 23:00 Last Admin: 03/16/20 10:32 Dose: Not Given Documented by: Non-Formulary Medication (Hydralazine [Apresoline]) 10 mg PO BID [facility] Last Admin: 03/14/20 14:38 Dose: Not Given Documented by: Ondansetron HCl (Zofran) 4 mg IVPUSH ONETIME ONE Stop: 03/12/20 23:08 Last Admin: 03/12/20 23:12 Dose: 4 mg Documented by: Potassium Chloride (Klor-Con 10) 10 meq PO BID [facility] Last Admin: 03/15/20 21:36 Dose: 10 meq Documented by: Potassium Chloride (Klor-Con 10) 40 meq PO ONETIME ONE Stop: 03/16/20 07:57 Last Admin: 03/16/20 09:10 Dose: 40 meq Documented by: Warfarin Sodium (Pharmacy To Dose - Warfarin) 1 dose .XX ASDIRECTED [facility] Warfarin Sodium (Coumadin) 3 mg PO ONETIME ONE Stop: 03/13/20 14:01 Last Admin: 03/13/20 13:13 Dose: 3 mg Documented by: Warfarin Sodium (Coumadin) 5 mg PO ONETIME ONE Stop: 03/14/20 14:01 Last Admin: 03/14/20 13:15 Dose: 5 mg Documented by: Warfarin Sodium (Coumadin) 5 mg PO ONETIME ONE Stop: 03/15/20 14:01 Last Admin: 03/15/20 14:09 Dose: 5 mg Documented by: - Exam Quality Assessment: Supplemental Oxygen General: Alert, Oriented HEENT: Pupils Equal, Pupils Reactive, EOMI, Mucous Membr. Moist/[place] Neck: Supple Lungs: Clear to Auscultation, Normal Respiratory Effort Cardiovascular: Regular Rate, Regular Rhythm GI/Abdominal Exam: Normal Bowel Sounds, Soft, Non-Tender, No Organomegaly, No Distention, No Abnormal Bruit, No Mass, Pelvis Stable Back Exam: Normal Inspection, Full Range of Motion Extremities: Pedal Edema Skin: Warm, Dry, Intact Neurological: No New Focal Deficit Psy/Mental Status: Alert, Normal Affect, Normal Mood Sepsis Event Note - Evaluation Sepsis Screening Result: No Definite Risk - Focused Exam Vital Signs: Vital Signs Temp Pulse Pulse Resp BP BP Pulse Ox 03/16/20 08:48 147/76 H 03/16/20 08:44 50 L 147/76 H 03/16/20 08:11 97.2 F 50 L 18 147/72 H 96 03/16/20 04:00 92 L - Problem List Review Problem List Initiated/Reviewed/Updated: Yes - My Orders Last 24 Hours: My Active Orders 03/15/20 14:00 Bumetanide [Bumex] 2 mg IVPUSH TID 03/15/20 15:31 Communication Order [RC] 03/16/20 09:00 Potassium Chloride [Klor-Con 10] 20 meq PO BIDMEALS 03/16/20 10:00 levoFLOXacin [Levaquin] 250 mg PO Q48H levoFLOXacin [Levaquin] 500 mg PO Q48H 03/16/20 13:00 metOLazone [Zaroxolyn] 5 mg PO ONETIME ONE 03/16/20 14:00 Warfarin [Coumadin] 5 mg PO DAILY@1400 03/17/20 05:11 BASIC METABOLIC PANEL,BMP [CHEM] AM 03/17/20 06:00 INR,PT,PROTHROMBIN TIME [COAG] DAILY 03/18/20 06:00 INR,PT,PROTHROMBIN TIME [COAG] DAILY 03/19/20 06:00 INR,PT,PROTHROMBIN TIME [COAG] DAILY 03/20/20 06:00 INR,PT,PROTHROMBIN TIME [COAG] DAILY 03/21/20 06:00 INR,PT,PROTHROMBIN TIME [COAG] DAILY 03/22/20 06:00 INR,PT,PROTHROMBIN TIME [COAG] DAILY - Plan Plan:: Ms. Au is a 74-year-old pleasant morbidly obese female with past medical history of stroke, history of renal artery stenosis with a stent in May 2016, obstructive sleep apnea. Diabetes type 2, noninsulin-dependent with Minimal proteinuria, hyperlipidemia, hypertension, and coronary artery disease. She presented to ER with progressive shortness of breath and had low grade temperature with leukocytosis. CT of chest showed scant bilateral pleural effusion and CXR showed no acute infiltrate. U/A was negative for UTI. Impression and Plan: Acute hypoxic respiratory failure Probable pneumonia Patient presented with shortness of breath with fever and leukocytosis: Pt had CT and CXR showing no acute process. Suspect patient was developing early signs of pneumonia at background CHF exacerbation. Blood culture no growth to date Repeat urinalysis negative -Discontinue Zosyn and Azithromycin and start Levaquin -Continue NC oxygen and try to wean off as tolerated TULIO: The etiology not clear and likely from Medication and likely cardiorenal syndrome also possible infectious origin -Continue diuresis -Continue strict I/O Obtain daily weights Renal status slowly improving Hypertension: BP is acceptable and will continue Home medication, Amlodipine, Metoprolol and Hydralazine Acute on chronic systolic and diastolic CHF Patient presented with severe bilateral lower extremity edema. BNP elevated at 199. Continue Bumex 2 mg 3 times daily Add metolazone 5 mg with afternoon dose of Bumex today Transthoracic echo report pending Hypokalemia Potassium of 3.4 Replace Diabetes II: ( Insulin Dependent): will continue Insulin Coronary Artery disease: Continue statin/plavix and Metoprolol can not tolerate SHE/ARB DVT prophylaxis: pt is on coumadin and pharmacy to dose Code Status: Discuss with pt and she is Full Code
[2020-03-16] MEDS ORDERED: Metolazone 2.5 MG Tab PO ONE (13:00)
[2020-03-16] MEDS: amLODIPine 5 MG Tab PO SCH (13:04)
[2020-03-16] MEDS: Acetaminophen 325 MG Tab PO PRN (13:55)
[2020-03-16] MEDS ORDERED: Warfarin 5 MG Tab PO SCH (14:00)
[2020-03-16] MEDS: Pravastatin 20 MG Tab PO SCH (21:32)
[2020-03-16] MEDS: diphenhydrAMINE 25 MG Tab PO SCH (21:32)
[2020-03-16] MEDS: INSULIN DEGLUDEC SUBCUT SCH ×2 (22:07→22:10)
[2020-03-17 08:39] LABS: ANION GAP 6.8 mEq/L (7-13)
[2020-03-17] MEDS: Insulin Lispro 100 Units/ML 3 ML Vial SUBCUT SCH ×4 (09:50→20:37)
[2020-03-17] MEDS: Bumetanide 1 MG/4 ML MDV IVPUSH SCH (09:51)
[2020-03-17] MEDS: Terazosin 5 MG Cap PO SCH ×2 (09:52→20:22)
[2020-03-17] MEDS: Clopidogrel 75 MG Tab PO SCH (09:55)
[2020-03-17] MEDS: Potassium Chloride 10 MEQ Tab.ER PO SCH ×2 (09:55→17:17)
[2020-03-17] MEDS: Acetaminophen 500 MG Tab PO SCH ×2 (09:55→20:21)
[2020-03-17] MEDS: Nystatin Topical Powder 30 GM Bottle TOP SCH ×2 (09:56→20:32)
[2020-03-17] MEDS: Sodium Chloride 0.9% 10 ML Syringe FLUSH PRN ×3 (09:57→20:26)
--- NOTE | 2020-03-17 10:42 | PCM.PN ---
- General Info Date of Service: 03/17/20 Admission Dx/Problem (Free Text): Admission Diagnosis/Problem Admission Diagnosis/Problem CHF, Congestive heart failure, acute Kidney Injury and Fever of unknown origin Subjective Update: Patient seen and examined today. Still requiring oxygen. Afebrile overnight. Functional Status: Reports: Pain Controlled - Review of Systems General: Reports: No Symptoms HEENT: Reports: No Symptoms Pulmonary: Reports: Shortness of Breath Cardiovascular: Reports: Edema Gastrointestinal: Reports: No Symptoms Genitourinary: Reports: No Symptoms Musculoskeletal: Reports: No Symptoms Skin: Reports: No Symptoms Neurological: Reports: No Symptoms Psychiatric: Reports: No Symptoms - Patient Data Vitals - Most Recent: Last Vital Signs Temp 96.7 F L 03/17/20 08:17 Pulse 61 03/17/20 08:17 Resp 20 03/17/20 08:17 BP 161/71 H 03/17/20 09:52 Pulse Ox 97 03/17/20 08:17 Weight - Most Recent: 264 lb I&O - Last 24 Hours: Intake & Output 03/16/20 03/17/20 03/17/20 22:59 06:59 14:59 Intake Total 1190 Output Total 3050 1350 Balance -1860 -1350 Lab Results Last 24 Hours: Laboratory Results - last 24 hr 03/16/20 03/16/20 03/16/20 Range/Units 11:29 16:46 20:56 PT (9.0-12.0) SEC INR (0.9-1.2) Sodium (136-145) mmol/L Potassium (3.5-5.1) mmol/L Chloride (98-107) mmol/L Carbon Dioxide (21-32) mmol/L Anion Gap (7-13) mEq/L BUN (7-18) mg/dL Creatinine (0.55-1.02) mg/dL Est Cr Clr Drug Dosing mL/min Estimated GFR (MDRD) Glucose (74-99) mg/dL POC Glucose 213 H 199 H 228 H (83-110) mg/dl Calcium (8.5-10.1) mg/dL 03/17/20 03/17/20 03/17/20 Range/Units 08:04 08:10 08:10 PT 18.9 H (9.0-12.0) SEC INR 2.0 H (0.9-1.2) Sodium 142 (136-145) mmol/L Potassium 3.8 (3.5-5.1) mmol/L Chloride 104 (98-107) mmol/L Carbon Dioxide 35 H (21-32) mmol/L Anion Gap 6.8 L (7-13) mEq/L BUN 14 (7-18) mg/dL Creatinine 1.32 H (0.55-1.02) mg/dL Est Cr Clr Drug Dosing 30.46 mL/min Estimated GFR (MDRD) 39 Glucose 159 H (74-99) mg/dL POC Glucose 169 H (83-110) mg/dl Calcium 8.2 L (8.5-10.1) mg/dL Obed Results Last 24 Hours: Microbiology 03/13/20 02:38 Aerobic Blood Culture - Preliminary Blood NO GROWTH AFTER 4 DAYS Anaerobic Blood Culture - Final 03/12/20 22:42 Aerobic Blood Culture - Preliminary Blood - Venous - Iv Start NO GROWTH AFTER 4 DAYS Anaerobic Blood Culture - Preliminary NO GROWTH AFTER 4 DAYS Med Orders - Current: Current Medications Acetaminophen (Tylenol) 650 mg PO Q4H PRN PRN Reason: Pain (mild 1-3 )/fever Last Admin: 03/16/20 13:55 Dose: 650 mg Documented by: Acetaminophen (Tylenol Extra Strength) 1,000 mg PO BID [facility] Last Admin: 03/17/20 09:55 Dose: 1,000 mg Documented by: Amlodipine Besylate (Norvasc) 5 mg PO 1200 [facility] Last Admin: 03/16/20 13:04 Dose: 5 mg Documented by: Clopidogrel Bisulfate (Plavix) 75 mg PO DAILY [facility] Last Admin: 03/17/20 09:55 Dose: 75 mg Documented by: Dextrose/Water (Dextrose 50% In Water) 50 ml IV ASDIRECTED PRN PRN Reason: Hypoglycemia Diphenhydramine HCl (Benadryl) 25 mg PO BEDTIME [facility] Last Admin: 03/16/20 21:32 Dose: 25 mg Documented by: Docusate Sodium (Colace) 100 mg PO DAILY PRN PRN Reason: Constipation Glucagon (Glucagen) 1 mg IM ASDIRECTED PRN PRN Reason: Hypoglycemia Influenza Virus Vaccine (Pharmacy To Dose - Influenza Vaccine) 1 each IM DAILY [facility] Last Admin: 03/17/20 09:56 Dose: Not Given Documented by: Insulin Human Lispro (Humalog) 0 unit SUBCUT WITHMEALSANDBED [facility]; Protocol Last Admin: 03/17/20 09:50 Dose: 2 units Documented by: Levofloxacin (Levaquin) 500 mg PO Q48H [facility] Stop: 03/19/20 10:01 Last Admin: 03/16/20 10:48 Dose: 500 mg Documented by: Levofloxacin (Levaquin) 250 mg PO Q48H [facility] Last Admin: 03/16/20 10:48 Dose: 250 mg Documented by: Melatonin (Melatonin) 3 mg PO BEDTIME PRN PRN Reason: Sleep Last Admin: 03/15/20 21:41 Dose: 3 mg Documented by: Metoprolol Tartrate (Lopressor) 200 mg PO BID [facility] Last Admin: 03/16/20 08:44 Dose: 200 mg Documented by: Nystatin (Nystop) 0 gm TOP BID [facility] Last Admin: 03/17/20 09:56 Dose: 1 applicful Documented by: Insulin Degludec ( Tresiba) Inj *Own Med* 0 each SUBCUT BEDTIME [facility] Last Admin: 03/16/20 22:10 Dose: 55 each Documented by: Potassium Chloride (Klor-Con 10) 20 meq PO BIDMEALS [facility] Last Admin: 03/17/20 09:55 Dose: 20 meq Documented by: Pravastatin Sodium (Pravachol) 80 mg PO BEDTIME [facility] Last Admin: 03/16/20 21:32 Dose: 80 mg Documented by: Sodium Chloride (Saline Flush) 10 ml FLUSH ASDIRECTED PRN PRN Reason: Keep Vein Open Last Admin: 03/17/20 09:57 Dose: 10 ml Documented by: Terazosin HCl (Hytrin) 10 mg PO BID [facility] Last Admin: 03/17/20 09:52 Dose: 10 mg Documented by: Warfarin Sodium (Pharmacy To Dose - Warfarin) 1 dose .XX ASDIRECTED [facility] Warfarin Sodium (Coumadin) 3 mg PO ONETIME ONE Stop: 03/17/20 14:01 Discontinued Medications Azithromycin (Zithromax) Confirm Administered Dose 500 mg .ROUTE .STK-MED ONE Stop: 03/14/20 03:38 Last Admin: 03/14/20 03:44 Dose: Not Given Documented by: Bumetanide (Bumex) 1.5 mg IVPUSH BID ONE Stop: 03/13/20 04:16 Last Admin: 03/13/20 05:31 Dose: 1.5 mg Documented by: Bumetanide (Bumex) 1.5 mg IVPUSH BID [facility] Stop: 03/14/20 12:00 Last Admin: 03/14/20 09:19 Dose: 1.5 mg Documented by: Bumetanide (Bumex) 1 mg IVPUSH DAILY [facility] Bumetanide (Bumex) 2 mg IVPUSH BID [facility] Last Admin: 03/15/20 08:50 Dose: 2 mg Documented by: Bumetanide (Bumex) 2 mg IVPUSH TID [facility] Last Admin: 03/17/20 09:51 Dose: 2 mg Documented by: Furosemide (Lasix) 40 mg IVPUSH BID [facility] Piperacillin Sod/Tazobactam (Sod 3.375 gm/ Sodium Chloride) 100 mls @ 200 mls/hr IV Q6H [facility] Azithromycin 500 mg/ Sodium (Chloride) 250 mls @ 250 mls/hr IV Q24H [facility] Last Admin: 03/14/20 03:44 Dose: 100 mls/hr Documented by: Piperacillin Sod/Tazobactam (Sod 3.375 gm/ Sodium Chloride) 100 mls @ 200 mls/hr IV ONETIME ONE Stop: 03/13/20 06:14 Last Admin: 03/13/20 06:52 Dose: 200 mls/hr Documented by: Piperacillin Sod/Tazobactam (Sod 2.25 gm/ Sodium Chloride) 50 mls @ 100 mls/hr IV Q6HR [facility] Last Admin: 03/16/20 05:25 Dose: 100 mls/hr Documented by: Azithromycin 500 mg/ Sodium (Chloride) 250 mls @ 250 mls/hr IV Q24H [facility] Last Admin: 03/16/20 04:04 Dose: 250 mls/hr Documented by: Insulin Glargine (Lantus) 55 unit SUBCUT BEDTIME [facility] Insulin Human Lispro (Humalog) 17 unit SUBCUT ACBREAKFAST [facility] Insulin Human Lispro (Humalog) 17 unit SUBCUT ACLUNCH [facility] Last Admin: 03/13/20 13:12 Dose: 17 units Documented by: Insulin Human Lispro (Humalog) 17 unit SUBCUT WITHDINNER@1700 [facility] Last Admin: 03/13/20 17:31 Dose: Not Given Documented by: Insulin Human Lispro (Humalog) 17 unit SUBCUT WITHBREAKFAST [facility] Last Admin: 03/13/20 08:53 Dose: 17 units Documented by: Levofloxacin (Levaquin) 500 mg PO Q24H [facility] Stop: 03/18/20 23:00 Last Admin: 03/16/20 10:32 Dose: Not Given Documented by: Metolazone (Zaroxolyn) 5 mg PO ONETIME ONE Stop: 03/16/20 13:01 Last Admin: 03/16/20 13:29 Dose: Not Given Documented by: Non-Formulary Medication (Hydralazine [Apresoline]) 10 mg PO BID [facility] Last Admin: 03/14/20 14:38 Dose: Not Given Documented by: Ondansetron HCl (Zofran) 4 mg IVPUSH ONETIME ONE Stop: 03/12/20 23:08 Last Admin: 03/12/20 23:12 Dose: 4 mg Documented by: Potassium Chloride (Klor-Con 10) 10 meq PO BID [facility] Last Admin: 03/15/20 21:36 Dose: 10 meq Documented by: Potassium Chloride (Klor-Con 10) 40 meq PO ONETIME ONE Stop: 03/16/20 07:57 Last Admin: 03/16/20 09:10 Dose: 40 meq Documented by: Warfarin Sodium (Pharmacy To Dose - Warfarin) 1 dose .XX ASDIRECTED [facility] Warfarin Sodium (Coumadin) 3 mg PO ONETIME ONE Stop: 03/13/20 14:01 Last Admin: 03/13/20 13:13 Dose: 3 mg Documented by: Warfarin Sodium (Coumadin) 5 mg PO ONETIME ONE Stop: 03/14/20 14:01 Last Admin: 03/14/20 13:15 Dose: 5 mg Documented by: Warfarin Sodium (Coumadin) 5 mg PO ONETIME ONE Stop: 03/15/20 14:01 Last Admin: 03/15/20 14:09 Dose: 5 mg Documented by: Warfarin Sodium (Coumadin) 5 mg PO DAILY@1400 [facility] Stop: 03/16/20 14:01 Last Admin: 03/16/20 13:55 Dose: 5 mg Documented by: - Exam Quality Assessment: Supplemental Oxygen General: Alert, Oriented HEENT: Pupils Equal, Pupils Reactive, EOMI, Mucous Membr. Moist/[place] Neck: Supple Lungs: Clear to Auscultation, Normal Respiratory Effort Cardiovascular: Regular Rate, Regular Rhythm GI/Abdominal Exam: Normal Bowel Sounds, Soft, Non-Tender, No Organomegaly, No Distention, No Abnormal Bruit, No Mass, Pelvis Stable Back Exam: Normal Inspection, Full Range of Motion Extremities: Pedal Edema Skin: Warm, Dry, Intact Neurological: No New Focal Deficit Psy/Mental Status: Alert, Normal Affect, Normal Mood Sepsis Event Note - Evaluation Sepsis Screening Result: No Definite Risk - Focused Exam Vital Signs: Vital Signs Temp Pulse Resp BP BP Pulse Ox 03/17/20 09:52 161/71 H 03/17/20 08:17 96.7 F L 61 20 167/71 H 97 03/17/20 04:00 93 L 03/16/20 23:57 97.3 F 64 16 147/67 H 95 - Problem List Review Problem List Initiated/Reviewed/Updated: Yes - My Orders Last 24 Hours: My Active Orders 03/16/20 10:00 levoFLOXacin [Levaquin] 250 mg PO Q48H levoFLOXacin [Levaquin] 500 mg PO Q48H 03/17/20 14:00 Bumetanide [Bumex] 3 mg IVPUSH TID Warfarin [Coumadin] 3 mg PO ONETIME ONE 03/18/20 05:11 BASIC METABOLIC PANEL,BMP [CHEM] AM MAGNESIUM [CHEM] AM 03/18/20 06:00 INR,PT,PROTHROMBIN TIME [COAG] DAILY 03/19/20 05:11 BASIC METABOLIC PANEL,BMP [CHEM] AM 03/19/20 06:00 INR,PT,PROTHROMBIN TIME [COAG] DAILY 03/20/20 05:11 BASIC METABOLIC PANEL,BMP [CHEM] AM 03/20/20 06:00 INR,PT,PROTHROMBIN TIME [COAG] DAILY 03/21/20 06:00 INR,PT,PROTHROMBIN TIME [COAG] DAILY 03/22/20 06:00 INR,PT,PROTHROMBIN TIME [COAG] DAILY - Plan Plan:: Ms. Au is a 74-year-old pleasant morbidly obese female with past medical history of stroke, history of renal artery stenosis with a stent in May 2016, obstructive sleep apnea. Diabetes type 2, noninsulin-dependent with Minimal proteinuria, hyperlipidemia, hypertension, and coronary artery disease. She presented to ER with progressive shortness of breath and had low grade temperature with leukocytosis. CT of chest showed scant bilateral pleural effusion and CXR showed no acute infiltrate. U/A was negative for UTI. Impression and Plan: Acute hypoxic respiratory failure Probable pneumonia Patient presented with shortness of breath with fever and leukocytosis: Pt had CT and CXR showing no acute process. Suspect patient was developing early signs of pneumonia at background CHF exacerbation. Blood culture no growth to date Repeat urinalysis negative -continue Levaquin -Continue NC oxygen and try to wean off as tolerated TULIO: The etiology not clear and likely from Medication and likely cardiorenal syndrome also possible infectious origin -Continue diuresis -Continue strict I/O Obtain daily weights Renal status slowly improving Hypertension: BP is acceptable and will continue Home medication, Amlodipine, Metoprolol and Hydralazine Acute on chronic systolic and diastolic CHF Patient presented with severe bilateral lower extremity edema. BNP elevated at 199. Increase Bumex to 3 mg 3 times daily Transthoracic echo images difficult to obtain. Will schedule for outpatient. Hypokalemia Potassium of 3.4 Replaced Diabetes II: ( Insulin Dependent): will continue Insulin Coronary Artery disease: Continue statin/plavix and Metoprolol can not tolerate SHE/ARB DVT prophylaxis: pt is on coumadin and pharmacy to dose Code Status: Discuss with pt and she is Full Code
[2020-03-17] MEDS: Furosemide 20 MG/2 ML VIAL IV SCH ×2 (13:03→20:21)
[2020-03-17] MEDS: amLODIPine 5 MG Tab PO SCH (13:08)
[2020-03-17] MEDS ORDERED: Bumetanide 1 MG/4 ML MDV IVPUSH SCH (14:00)
[2020-03-17] MEDS: Metoprolol Tartrate 50 MG Tab PO SCH (20:23)
[2020-03-17] MEDS: diphenhydrAMINE 25 MG Tab PO SCH (20:24)
[2020-03-17] MEDS: Pravastatin 20 MG Tab PO SCH (20:26)
[2020-03-17] MEDS: INSULIN DEGLUDEC SUBCUT SCH (20:39)
[2020-03-18 06:29] LABS: ANION GAP 9.8 mEq/L (7-13)
[2020-03-18] MEDS: Insulin Lispro 100 Units/ML 3 ML Vial SUBCUT SCH ×4 (08:00→21:51)
[2020-03-18] MEDS: Acetaminophen 500 MG Tab PO SCH ×2 (08:54→20:12)
[2020-03-18] MEDS: Potassium Chloride 10 MEQ Tab.ER PO SCH ×2 (08:54→17:02)
[2020-03-18] MEDS: Metoprolol Tartrate 50 MG Tab PO SCH ×2 (08:55→20:10)
[2020-03-18] MEDS: Terazosin 5 MG Cap PO SCH ×2 (08:56→20:09)
[2020-03-18] MEDS: Furosemide 20 MG/2 ML VIAL IV SCH (08:57)
[2020-03-18] MEDS: Clopidogrel 75 MG Tab PO SCH (08:57)
[2020-03-18] MEDS: Nystatin Topical Powder 30 GM Bottle TOP SCH ×2 (08:58→20:11)
[2020-03-18] MEDS: Sodium Chloride 0.9% 10 ML Syringe FLUSH PRN (08:59)
[2020-03-18] MEDS: Levofloxacin 250 MG Tab PO SCH (08:59)
[2020-03-18] MEDS: Levofloxacin 500 MG Tab PO SCH (08:59)
[2020-03-18] MEDS: amLODIPine 5 MG Tab PO SCH (11:53)
--- NOTE | 2020-03-18 11:59 | PCM.PN ---
- General Info Date of Service: 03/18/20 Admission Dx/Problem (Free Text): Admission Diagnosis/Problem Admission Diagnosis/Problem CHF, Congestive heart failure, acute Kidney Injury and Fever of unknown origin Subjective Update: Patient seen and examined today. Oxygen requirements decreasing. Leg swelling markedly decreased. Afebrile overnight. Functional Status: Reports: Pain Controlled - Review of Systems General: Reports: No Symptoms HEENT: Reports: No Symptoms Pulmonary: Reports: Shortness of Breath Cardiovascular: Reports: Edema Gastrointestinal: Reports: No Symptoms Genitourinary: Reports: No Symptoms Musculoskeletal: Reports: No Symptoms Skin: Reports: No Symptoms Neurological: Reports: No Symptoms Psychiatric: Reports: No Symptoms - Patient Data Vitals - Most Recent: Last Vital Signs Temp 98.6 F 03/18/20 08:00 Pulse 55 L 03/18/20 08:55 Resp 20 03/18/20 08:00 BP 173/59 H 03/18/20 11:53 Pulse Ox 93 L 03/18/20 08:00 Weight - Most Recent: 256 lb 3.2 oz I&O - Last 24 Hours: Intake & Output 03/17/20 03/18/20 03/18/20 22:59 06:59 14:59 Intake Total 750 200 240 Output Total 1050 2000 200 Balance -300 -1800 40 Lab Results Last 24 Hours: Laboratory Results - last 24 hr 03/17/20 03/17/20 03/18/20 Range/Units 16:48 20:35 05:45 PT 19.2 H (9.0-12.0) SEC INR 2.0 H (0.9-1.2) Sodium (136-145) mmol/L Potassium (3.5-5.1) mmol/L Chloride (98-107) mmol/L Carbon Dioxide (21-32) mmol/L Anion Gap (7-13) mEq/L BUN (7-18) mg/dL Creatinine (0.55-1.02) mg/dL Est Cr Clr Drug Dosing mL/min Estimated GFR (MDRD) Glucose (74-99) mg/dL POC Glucose 216 H 274 H (83-110) mg/dl Calcium (8.5-10.1) mg/dL Magnesium (1.8-2.4) mg/dL 03/18/20 03/18/20 03/18/20 Range/Units 05:45 07:50 11:39 PT (9.0-12.0) SEC INR (0.9-1.2) Sodium 143 (136-145) mmol/L Potassium 3.8 (3.5-5.1) mmol/L Chloride 103 (98-107) mmol/L Carbon Dioxide 34 H (21-32) mmol/L Anion Gap 9.8 (7-13) mEq/L BUN 16 (7-18) mg/dL Creatinine 1.46 H (0.55-1.02) mg/dL Est Cr Clr Drug Dosing 27.54 mL/min Estimated GFR (MDRD) 35 Glucose 144 H (74-99) mg/dL POC Glucose 146 H 186 H (83-110) mg/dl Calcium 9.1 (8.5-10.1) mg/dL Magnesium 2.2 (1.8-2.4) mg/dL Obed Results Last 24 Hours: Microbiology 03/13/20 02:38 Aerobic Blood Culture - Final Blood NO GROWTH AFTER 5 DAYS Anaerobic Blood Culture - Final 03/12/20 22:42 Aerobic Blood Culture - Final Blood - Venous - Iv Start NO GROWTH AFTER 5 DAYS Anaerobic Blood Culture - Final NO GROWTH AFTER 5 DAYS Med Orders - Current: Current Medications Acetaminophen (Tylenol) 650 mg PO Q4H PRN PRN Reason: Pain (mild 1-3 )/fever Last Admin: 03/16/20 13:55 Dose: 650 mg Documented by: Acetaminophen (Tylenol Extra Strength) 1,000 mg PO BID [facility] Last Admin: 03/18/20 08:54 Dose: 1,000 mg Documented by: Amlodipine Besylate (Norvasc) 5 mg PO 1200 [facility] Last Admin: 03/18/20 11:53 Dose: 5 mg Documented by: Clopidogrel Bisulfate (Plavix) 75 mg PO DAILY [facility] Last Admin: 03/18/20 08:57 Dose: 75 mg Documented by: Dextrose/Water (Dextrose 50% In Water) 50 ml IV ASDIRECTED PRN PRN Reason: Hypoglycemia Diphenhydramine HCl (Benadryl) 25 mg PO BEDTIME [facility] Last Admin: 03/17/20 20:24 Dose: 25 mg Documented by: Docusate Sodium (Colace) 100 mg PO DAILY PRN PRN Reason: Constipation Glucagon (Glucagen) 1 mg IM ASDIRECTED PRN PRN Reason: Hypoglycemia Influenza Virus Vaccine (Pharmacy To Dose - Influenza Vaccine) 1 each IM DAILY [facility] Last Admin: 03/18/20 09:03 Dose: Not Given Documented by: Insulin Human Lispro (Humalog) 0 unit SUBCUT WITHMEALSANDBED [facility]; Protocol Last Admin: 03/18/20 11:52 Dose: 2 units Documented by: Levofloxacin (Levaquin) 500 mg PO Q48H [facility] Stop: 03/19/20 10:01 Last Admin: 03/18/20 08:59 Dose: 500 mg Documented by: Levofloxacin (Levaquin) 250 mg PO Q48H [facility] Stop: 03/19/20 10:01 Last Admin: 03/18/20 08:59 Dose: 250 mg Documented by: Melatonin (Melatonin) 3 mg PO BEDTIME PRN PRN Reason: Sleep Last Admin: 03/15/20 21:41 Dose: 3 mg Documented by: Metoprolol Tartrate (Lopressor) 200 mg PO BID [facility] Last Admin: 03/18/20 08:55 Dose: 200 mg Documented by: Nystatin (Nystop) 0 gm TOP BID [facility] Last Admin: 03/18/20 08:58 Dose: 1 applicful Documented by: Insulin Degludec ( Tresiba) Inj *Own Med* 0 each SUBCUT BEDTIME [facility] Last Admin: 03/17/20 20:39 Dose: 55 each Documented by: Potassium Chloride (Klor-Con 10) 20 meq PO BIDMEALS [facility] Last Admin: 03/18/20 08:54 Dose: 20 meq Documented by: Pravastatin Sodium (Pravachol) 80 mg PO BEDTIME [facility] Last Admin: 03/17/20 20:26 Dose: 80 mg Documented by: Sodium Chloride (Saline Flush) 10 ml FLUSH ASDIRECTED PRN PRN Reason: Keep Vein Open Last Admin: 03/18/20 08:59 Dose: 10 ml Documented by: Terazosin HCl (Hytrin) 10 mg PO BID [facility] Last Admin: 03/18/20 08:56 Dose: 10 mg Documented by: Warfarin Sodium (Pharmacy To Dose - Warfarin) 1 dose .XX ASDIRECTED [facility] Warfarin Sodium (Coumadin) 3 mg PO ONETIME ONE Stop: 03/18/20 14:01 Discontinued Medications Azithromycin (Zithromax) Confirm Administered Dose 500 mg .ROUTE .STK-MED ONE Stop: 03/14/20 03:38 Last Admin: 03/14/20 03:44 Dose: Not Given Documented by: Bumetanide (Bumex) 1.5 mg IVPUSH BID ONE Stop: 03/13/20 04:16 Last Admin: 03/13/20 05:31 Dose: 1.5 mg Documented by: Bumetanide (Bumex) 1.5 mg IVPUSH BID [facility] Stop: 03/14/20 12:00 Last Admin: 03/14/20 09:19 Dose: 1.5 mg Documented by: Bumetanide (Bumex) 1 mg IVPUSH DAILY [facility] Bumetanide (Bumex) 2 mg IVPUSH BID [facility] Last Admin: 03/15/20 08:50 Dose: 2 mg Documented by: Bumetanide (Bumex) 2 mg IVPUSH TID [facility] Last Admin: 03/17/20 09:51 Dose: 2 mg Documented by: Bumetanide (Bumex) 3 mg IVPUSH TID [facility] Furosemide (Lasix) 40 mg IVPUSH BID [facility] Furosemide (Lasix) 60 mg IV TID [facility] Last Admin: 03/18/20 08:57 Dose: 60 mg Documented by: Piperacillin Sod/Tazobactam (Sod 3.375 gm/ Sodium Chloride) 100 mls @ 200 mls/hr IV Q6H [facility] Azithromycin 500 mg/ Sodium (Chloride) 250 mls @ 250 mls/hr IV Q24H [facility] Last Admin: 03/14/20 03:44 Dose: 100 mls/hr Documented by: Piperacillin Sod/Tazobactam (Sod 3.375 gm/ Sodium Chloride) 100 mls @ 200 mls/hr IV ONETIME ONE Stop: 03/13/20 06:14 Last Admin: 03/13/20 06:52 Dose: 200 mls/hr Documented by: Piperacillin Sod/Tazobactam (Sod 2.25 gm/ Sodium Chloride) 50 mls @ 100 mls/hr IV Q6HR [facility] Last Admin: 03/16/20 05:25 Dose: 100 mls/hr Documented by: Azithromycin 500 mg/ Sodium (Chloride) 250 mls @ 250 mls/hr IV Q24H [facility] Last Admin: 03/16/20 04:04 Dose: 250 mls/hr Documented by: Insulin Glargine (Lantus) 55 unit SUBCUT BEDTIME [facility] Insulin Human Lispro (Humalog) 17 unit SUBCUT ACBREAKFAST [facility] Insulin Human Lispro (Humalog) 17 unit SUBCUT ACLUNCH [facility] Last Admin: 03/13/20 13:12 Dose: 17 units Documented by: Insulin Human Lispro (Humalog) 17 unit SUBCUT WITHDINNER@1700 [facility] Last Admin: 03/13/20 17:31 Dose: Not Given Documented by: Insulin Human Lispro (Humalog) 17 unit SUBCUT WITHBREAKFAST [facility] Last Admin: 03/13/20 08:53 Dose: 17 units Documented by: Levofloxacin (Levaquin) 500 mg PO Q24H [facility] Stop: 03/18/20 23:00 Last Admin: 03/16/20 10:32 Dose: Not Given Documented by: Metolazone (Zaroxolyn) 5 mg PO ONETIME ONE Stop: 03/16/20 13:01 Last Admin: 03/16/20 13:29 Dose: Not Given Documented by: Non-Formulary Medication (Hydralazine [Apresoline]) 10 mg PO BID [facility] Last Admin: 03/14/20 14:38 Dose: Not Given Documented by: Ondansetron HCl (Zofran) 4 mg IVPUSH ONETIME ONE Stop: 03/12/20 23:08 Last Admin: 03/12/20 23:12 Dose: 4 mg Documented by: Potassium Chloride (Klor-Con 10) 10 meq PO BID [facility] Last Admin: 03/15/20 21:36 Dose: 10 meq Documented by: Potassium Chloride (Klor-Con 10) 40 meq PO ONETIME ONE Stop: 03/16/20 07:57 Last Admin: 03/16/20 09:10 Dose: 40 meq Documented by: Warfarin Sodium (Pharmacy To Dose - Warfarin) 1 dose .XX ASDIRECTED [facility] Warfarin Sodium (Coumadin) 3 mg PO ONETIME ONE Stop: 03/13/20 14:01 Last Admin: 03/13/20 13:13 Dose: 3 mg Documented by: Warfarin Sodium (Coumadin) 5 mg PO ONETIME ONE Stop: 03/14/20 14:01 Last Admin: 03/14/20 13:15 Dose: 5 mg Documented by: Warfarin Sodium (Coumadin) 5 mg PO ONETIME ONE Stop: 03/15/20 14:01 Last Admin: 03/15/20 14:09 Dose: 5 mg Documented by: Warfarin Sodium (Coumadin) 5 mg PO DAILY@1400 VALDO Stop: 03/16/20 14:01 Last Admin: 03/16/20 13:55 Dose: 5 mg Documented by: Warfarin Sodium (Coumadin) 3 mg PO ONETIME ONE Stop: 03/17/20 14:01 Last Admin: 03/17/20 13:07 Dose: 3 mg Documented by: - Exam Quality Assessment: Supplemental Oxygen General: Alert, Oriented HEENT: Pupils Equal, Pupils Reactive, EOMI, Mucous Membr. Moist/[place] Neck: Supple Lungs: Clear to Auscultation, Normal Respiratory Effort Cardiovascular: Regular Rate, Regular Rhythm GI/Abdominal Exam: Normal Bowel Sounds, Soft, Non-Tender, No Organomegaly, No Distention, No Abnormal Bruit, No Mass, Pelvis Stable Back Exam: Normal Inspection, Full Range of Motion Extremities: Pedal Edema Skin: Warm, Dry, Intact Neurological: No New Focal Deficit Psy/Mental Status: Alert, Normal Affect, Normal Mood Sepsis Event Note - Evaluation Sepsis Screening Result: No Definite Risk - Focused Exam Vital Signs: Vital Signs Temp Pulse Pulse Resp BP BP BP 03/18/20 11:53 173/59 H 03/18/20 08:56 183/74 H 03/18/20 08:55 55 L 183/74 H 03/18/20 08:00 98.6 F 55 L 20 183/74 H 03/18/20 01:00 97.2 F 68 18 148/62 H Pulse Ox 03/18/20 11:53 03/18/20 08:56 03/18/20 08:55 03/18/20 08:00 93 L 03/18/20 01:00 97 - Problem List Review Problem List Initiated/Reviewed/Updated: Yes - My Orders Last 24 Hours: My Active Orders 03/18/20 14:00 Warfarin [Coumadin] 3 mg PO ONETIME ONE 03/18/20 18:00 Bumetanide [Bumex] 2 mg PO BIDDIURETIC 03/19/20 05:11 BASIC METABOLIC PANEL,BMP [CHEM] AM 03/19/20 06:00 INR,PT,PROTHROMBIN TIME [COAG] DAILY 03/20/20 05:11 BASIC METABOLIC PANEL,BMP [CHEM] AM 03/20/20 06:00 INR,PT,PROTHROMBIN TIME [COAG] DAILY 03/21/20 06:00 INR,PT,PROTHROMBIN TIME [COAG] DAILY 03/22/20 06:00 INR,PT,PROTHROMBIN TIME [COAG] DAILY - Plan Plan:: Ms. Au is a 74-year-old pleasant morbidly obese female with past medical history of stroke, history of renal artery stenosis with a stent in May 2016, obstructive sleep apnea. Diabetes type 2, noninsulin-dependent with Minimal proteinuria, hyperlipidemia, hypertension, and coronary artery disease. She presented to ER with progressive shortness of breath and had low grade temperature with leukocytosis. CT of chest showed scant bilateral pleural effusion and CXR showed no acute infiltrate. U/A was negative for UTI. Impression and Plan: Acute hypoxic respiratory failure Probable pneumonia Patient presented with shortness of breath with fever and leukocytosis: Pt had CT and CXR showing no acute process. Suspect patient was developing early signs of pneumonia at background CHF exacerbation. -continue Levaquin -Continue NC oxygen and try to wean off as tolerated TULIO: The etiology not clear and likely from Medication and likely cardiorenal syndrome also possible infectious origin -Continue diuresis -Continue strict I/O Obtain daily weights Renal status slowly improving Hypertension: BP is acceptable and will continue Home medication, Amlodipine, Metoprolol and Hydralazine Acute on chronic systolic and diastolic CHF Patient presented with severe bilateral lower extremity edema. BNP elevated at 199. Switch to Bumex 2 mg p.o. twice daily Transthoracic echo images difficult to obtain. Will schedule for outpatient. Hypokalemia Potassium of 3.4 Replaced Diabetes II: ( Insulin Dependent): will continue Insulin Coronary Artery disease: Continue statin/plavix and Metoprolol can not tolerate SHE/ARB DVT prophylaxis: pt is on coumadin and pharmacy to dose Code Status: Discuss with pt and she is Full Code
[2020-03-18] MEDS: Bumetanide 1 MG Tab PO SCH (17:02)
[2020-03-18] MEDS: diphenhydrAMINE 25 MG Tab PO SCH (20:09)
[2020-03-18] MEDS: Pravastatin 20 MG Tab PO SCH (20:12)
[2020-03-18] MEDS: Melatonin 3 MG Tab PO PRN (20:13)
[2020-03-18] MEDS: INSULIN DEGLUDEC SUBCUT SCH (21:51)
[2020-03-19 07:07] LABS: ANION GAP 10.9 mEq/L (7-13)
[2020-03-19] MEDS: Insulin Lispro 100 Units/ML 3 ML Vial SUBCUT SCH ×5 (08:13→21:46)
[2020-03-19] MEDS: Bumetanide 1 MG Tab PO SCH (08:45)
[2020-03-19] MEDS: Sodium Chloride 0.9% 10 ML Syringe FLUSH PRN (08:45)
[2020-03-19] MEDS: Terazosin 5 MG Cap PO SCH ×2 (08:46→21:35)
[2020-03-19] MEDS: Potassium Chloride 10 MEQ Tab.ER PO SCH ×3 (08:46→17:02)
[2020-03-19] MEDS: Acetaminophen 500 MG Tab PO SCH ×2 (08:46→21:38)
[2020-03-19] MEDS: Clopidogrel 75 MG Tab PO SCH (08:48)
[2020-03-19] MEDS: Nystatin Topical Powder 30 GM Bottle TOP SCH ×2 (08:49→21:53)
[2020-03-19] MEDS: Metoprolol Tartrate 50 MG Tab PO SCH ×2 (09:58→21:36)
[2020-03-19] MEDS: Acetaminophen 325 MG Tab PO PRN (10:55)
--- NOTE | 2020-03-19 13:21 | PCM.PN ---
- General Info Date of Service: 03/19/20 Admission Dx/Problem (Free Text): Admission Diagnosis/Problem Admission Diagnosis/Problem CHF, Congestive heart failure, acute Kidney Injury and Fever of unknown origin Subjective Update: Patient seen and examined today. Now off oxygen. Leg swelling markedly decreased. Afebrile overnight. Functional Status: Reports: Pain Controlled - Review of Systems General: Reports: No Symptoms HEENT: Reports: No Symptoms Pulmonary: Reports: No Symptoms Cardiovascular: Reports: Edema Gastrointestinal: Reports: No Symptoms Genitourinary: Reports: No Symptoms Musculoskeletal: Reports: No Symptoms Skin: Reports: No Symptoms Neurological: Reports: No Symptoms Psychiatric: Reports: No Symptoms - Patient Data Vitals - Most Recent: Last Vital Signs Temp 96.4 F L 03/19/20 12:00 Pulse 62 03/19/20 12:00 Resp 18 03/19/20 12:00 BP 148/58 H 03/19/20 12:00 Pulse Ox 95 03/19/20 12:00 Weight - Most Recent: 254 lb 12.8 oz I&O - Last 24 Hours: Intake & Output 03/18/20 03/19/20 03/19/20 22:59 06:59 14:59 Intake Total 240 Output Total 1050 1200 Balance -1050 -1200 240 Lab Results Last 24 Hours: Laboratory Results - last 24 hr 03/18/20 03/18/20 03/19/20 Range/Units 16:55 21:40 05:35 PT 20.2 H (9.0-12.0) SEC INR 2.2 H (0.9-1.2) Sodium (136-145) mmol/L Potassium (3.5-5.1) mmol/L Chloride (98-107) mmol/L Carbon Dioxide (21-32) mmol/L Anion Gap (7-13) mEq/L BUN (7-18) mg/dL Creatinine (0.55-1.02) mg/dL Est Cr Clr Drug Dosing mL/min Estimated GFR (MDRD) Glucose (74-99) mg/dL POC Glucose 202 H 217 H (83-110) mg/dl Calcium (8.5-10.1) mg/dL 03/19/20 03/19/20 03/19/20 Range/Units 05:35 07:32 11:41 PT (9.0-12.0) SEC INR (0.9-1.2) Sodium 141 (136-145) mmol/L Potassium 3.9 (3.5-5.1) mmol/L Chloride 101 (98-107) mmol/L Carbon Dioxide 33 H (21-32) mmol/L Anion Gap 10.9 (7-13) mEq/L BUN 20 H (7-18) mg/dL Creatinine 1.52 H (0.55-1.02) mg/dL Est Cr Clr Drug Dosing 26.45 mL/min Estimated GFR (MDRD) 33 Glucose 114 H (74-99) mg/dL POC Glucose 112 H 186 H (83-110) mg/dl Calcium 9.1 (8.5-10.1) mg/dL Med Orders - Current: Current Medications Acetaminophen (Tylenol) 650 mg PO Q4H PRN PRN Reason: Pain (mild 1-3 )/fever Last Admin: 03/19/20 10:55 Dose: 650 mg Documented by: Acetaminophen (Tylenol Extra Strength) 1,000 mg PO BID [facility] Last Admin: 03/19/20 08:46 Dose: 1,000 mg Documented by: Amlodipine Besylate (Norvasc) 5 mg PO 1200 [facility] Last Admin: 03/18/20 11:53 Dose: 5 mg Documented by: Clopidogrel Bisulfate (Plavix) 75 mg PO DAILY [facility] Last Admin: 03/19/20 08:48 Dose: 75 mg Documented by: Dextrose/Water (Dextrose 50% In Water) 50 ml IV ASDIRECTED PRN PRN Reason: Hypoglycemia Diphenhydramine HCl (Benadryl) 25 mg PO BEDTIME [facility] Last Admin: 03/18/20 20:09 Dose: 25 mg Documented by: Docusate Sodium (Colace) 100 mg PO DAILY PRN PRN Reason: Constipation Glucagon (Glucagen) 1 mg IM ASDIRECTED PRN PRN Reason: Hypoglycemia Influenza Virus Vaccine (Pharmacy To Dose - Influenza Vaccine) 1 each IM DAILY [facility] Last Admin: 03/19/20 08:50 Dose: Not Given Documented by: Insulin Human Lispro (Humalog) 0 unit SUBCUT WITHMEALSANDBED [facility]; Protocol Last Admin: 03/19/20 08:13 Dose: Not Given Documented by: Melatonin (Melatonin) 3 mg PO BEDTIME PRN PRN Reason: Sleep Last Admin: 03/18/20 20:13 Dose: 3 mg Documented by: Metoprolol Tartrate (Lopressor) 200 mg PO BID [facility] Last Admin: 03/19/20 09:58 Dose: Not Given Documented by: Nystatin (Nystop) 0 gm TOP BID [facility] Last Admin: 03/19/20 08:49 Dose: 1 applicful Documented by: Insulin Degludec ( Tresiba) Inj *Own Med* 0 each SUBCUT BEDTIME [facility] Last Admin: 03/18/20 21:51 Dose: 55 each Documented by: Potassium Chloride (Klor-Con 10) 20 meq PO BIDMEALS [facility] Last Admin: 03/19/20 08:46 Dose: 20 meq Documented by: Pravastatin Sodium (Pravachol) 80 mg PO BEDTIME [facility] Last Admin: 03/18/20 20:12 Dose: 80 mg Documented by: Sodium Chloride (Saline Flush) 10 ml FLUSH ASDIRECTED PRN PRN Reason: Keep Vein Open Last Admin: 03/19/20 08:45 Dose: 10 ml Documented by: Terazosin HCl (Hytrin) 10 mg PO BID [facility] Last Admin: 03/19/20 08:46 Dose: 10 mg Documented by: Warfarin Sodium (Pharmacy To Dose - Warfarin) 1 dose .XX ASDIRECTED [facility] Warfarin Sodium (Coumadin) 5 mg PO ONETIME ONE Stop: 03/19/20 14:01 Discontinued Medications Azithromycin (Zithromax) Confirm Administered Dose 500 mg .ROUTE .STK-MED ONE Stop: 03/14/20 03:38 Last Admin: 03/14/20 03:44 Dose: Not Given Documented by: Bumetanide (Bumex) 1.5 mg IVPUSH BID ONE Stop: 03/13/20 04:16 Last Admin: 03/13/20 05:31 Dose: 1.5 mg Documented by: Bumetanide (Bumex) 1.5 mg IVPUSH BID [facility] Stop: 03/14/20 12:00 Last Admin: 03/14/20 09:19 Dose: 1.5 mg Documented by: Bumetanide (Bumex) 1 mg IVPUSH DAILY [facility] Bumetanide (Bumex) 2 mg IVPUSH BID [facility] Last Admin: 03/15/20 08:50 Dose: 2 mg Documented by: Bumetanide (Bumex) 2 mg IVPUSH TID [facility] Last Admin: 03/17/20 09:51 Dose: 2 mg Documented by: Bumetanide (Bumex) 3 mg IVPUSH TID [facility] Bumetanide (Bumex) 2 mg PO BIDDIURETIC [facility] Last Admin: 03/19/20 08:45 Dose: 2 mg Documented by: Furosemide (Lasix) 40 mg IVPUSH BID [facility] Furosemide (Lasix) 60 mg IV TID [facility] Last Admin: 03/18/20 08:57 Dose: 60 mg Documented by: Piperacillin Sod/Tazobactam (Sod 3.375 gm/ Sodium Chloride) 100 mls @ 200 mls/hr IV Q6H [facility] Azithromycin 500 mg/ Sodium (Chloride) 250 mls @ 250 mls/hr IV Q24H [facility] Last Admin: 03/14/20 03:44 Dose: 100 mls/hr Documented by: Piperacillin Sod/Tazobactam (Sod 3.375 gm/ Sodium Chloride) 100 mls @ 200 mls/hr IV ONETIME ONE Stop: 03/13/20 06:14 Last Admin: 03/13/20 06:52 Dose: 200 mls/hr Documented by: Piperacillin Sod/Tazobactam (Sod 2.25 gm/ Sodium Chloride) 50 mls @ 100 mls/hr IV Q6HR [facility] Last Admin: 03/16/20 05:25 Dose: 100 mls/hr Documented by: Azithromycin 500 mg/ Sodium (Chloride) 250 mls @ 250 mls/hr IV Q24H [facility] Last Admin: 03/16/20 04:04 Dose: 250 mls/hr Documented by: Insulin Glargine (Lantus) 55 unit SUBCUT BEDTIME [facility] Insulin Human Lispro (Humalog) 17 unit SUBCUT ACBREAKFAST [facility] Insulin Human Lispro (Humalog) 17 unit SUBCUT ACLUNCH [facility] Last Admin: 03/13/20 13:12 Dose: 17 units Documented by: Insulin Human Lispro (Humalog) 17 unit SUBCUT WITHDINNER@1700 [facility] Last Admin: 03/13/20 17:31 Dose: Not Given Documented by: Insulin Human Lispro (Humalog) 17 unit SUBCUT WITHBREAKFAST [facility] Last Admin: 03/13/20 08:53 Dose: 17 units Documented by: Levofloxacin (Levaquin) 500 mg PO Q24H [facility] Stop: 03/18/20 23:00 Last Admin: 03/16/20 10:32 Dose: Not Given Documented by: Levofloxacin (Levaquin) 500 mg PO Q48H [facility] Stop: 03/19/20 10:01 Last Admin: 03/18/20 08:59 Dose: 500 mg Documented by: Levofloxacin (Levaquin) 250 mg PO Q48H [facility] Stop: 03/19/20 10:01 Last Admin: 03/18/20 08:59 Dose: 250 mg Documented by: Metolazone (Zaroxolyn) 5 mg PO ONETIME ONE Stop: 03/16/20 13:01 Last Admin: 03/16/20 13:29 Dose: Not Given Documented by: Non-Formulary Medication (Hydralazine [Apresoline]) 10 mg PO BID [facility] Last Admin: 03/14/20 14:38 Dose: Not Given Documented by: Ondansetron HCl (Zofran) 4 mg IVPUSH ONETIME ONE Stop: 03/12/20 23:08 Last Admin: 03/12/20 23:12 Dose: 4 mg Documented by: Potassium Chloride (Klor-Con 10) 10 meq PO BID [facility] Last Admin: 03/15/20 21:36 Dose: 10 meq Documented by: Potassium Chloride (Klor-Con 10) 40 meq PO ONETIME ONE Stop: 03/16/20 07:57 Last Admin: 03/16/20 09:10 Dose: 40 meq Documented by: Warfarin Sodium (Pharmacy To Dose - Warfarin) 1 dose .XX ASDIRECTED [facility] Warfarin Sodium (Coumadin) 3 mg PO ONETIME ONE Stop: 03/13/20 14:01 Last Admin: 03/13/20 13:13 Dose: 3 mg Documented by: Warfarin Sodium (Coumadin) 5 mg PO ONETIME ONE Stop: 03/14/20 14:01 Last Admin: 03/14/20 13:15 Dose: 5 mg Documented by: Warfarin Sodium (Coumadin) 5 mg PO ONETIME ONE Stop: 03/15/20 14:01 Last Admin: 03/15/20 14:09 Dose: 5 mg Documented by: Warfarin Sodium (Coumadin) 5 mg PO DAILY@1400 [facility] Stop: 03/16/20 14:01 Last Admin: 03/16/20 13:55 Dose: 5 mg Documented by: Warfarin Sodium (Coumadin) 3 mg PO ONETIME ONE Stop: 03/17/20 14:01 Last Admin: 03/17/20 13:07 Dose: 3 mg Documented by: Warfarin Sodium (Coumadin) 3 mg PO ONETIME ONE Stop: 03/18/20 14:01 Last Admin: 03/18/20 13:53 Dose: 3 mg Documented by: - Exam General: Alert, Oriented HEENT: Pupils Equal, Pupils Reactive, EOMI, Mucous Membr. Moist/[place] Neck: Supple Lungs: Clear to Auscultation, Normal Respiratory Effort Cardiovascular: Regular Rate, Regular Rhythm GI/Abdominal Exam: Normal Bowel Sounds, Soft, Non-Tender, No Organomegaly, No Distention, No Abnormal Bruit, No Mass, Pelvis Stable Back Exam: Normal Inspection, Full Range of Motion Extremities: Pedal Edema Skin: Warm, Dry, Intact Neurological: No New Focal Deficit Psy/Mental Status: Alert, Normal Affect, Normal Mood Sepsis Event Note - Evaluation Sepsis Screening Result: No Definite Risk - Focused Exam Vital Signs: Vital Signs Temp Pulse Pulse Resp BP BP Pulse Ox 03/19/20 12:00 96.4 F L 62 18 148/58 H 95 03/19/20 09:58 50 L 138/75 03/19/20 08:46 138/75 03/19/20 07:55 95.9 F L 51 L 18 138/75 94 L 03/19/20 04:00 96.8 F L 45 L 20 132/61 95 03/19/20 03:21 Pulse Ox 03/19/20 12:00 03/19/20 09:58 03/19/20 08:46 03/19/20 07:55 03/19/20 04:00 03/19/20 03:21 94 L - Problem List Review Problem List Initiated/Reviewed/Updated: Yes - My Orders Last 24 Hours: My Active Orders 03/19/20 14:00 Warfarin [Coumadin] 5 mg PO ONETIME ONE 03/20/20 05:11 BASIC METABOLIC PANEL,BMP [CHEM] AM 03/20/20 06:00 INR,PT,PROTHROMBIN TIME [COAG] DAILY 03/21/20 06:00 INR,PT,PROTHROMBIN TIME [COAG] DAILY 03/22/20 06:00 INR,PT,PROTHROMBIN TIME [COAG] DAILY - Plan Plan:: Ms. Au is a 74-year-old pleasant morbidly obese female with past medical history of stroke, history of renal artery stenosis with a stent in May 2016, obstructive sleep apnea. Diabetes type 2, noninsulin-dependent with Minimal proteinuria, hyperlipidemia, hypertension, and coronary artery disease. She presented to ER with progressive shortness of breath and had low grade temperature with leukocytosis. CT of chest showed scant bilateral pleural effusion and CXR showed no acute infiltrate. U/A was negative for UTI. Impression and Plan: Acute hypoxic respiratory failure Probable pneumonia Patient presented with shortness of breath with fever and leukocytosis: Pt had CT and CXR showing no acute process. Suspect patient was developing early signs of pneumonia at background CHF exacerbation. -Discontinue Levaquin - Now off oxygen TULIO: The etiology not clear and likely from Medication and likely cardiorenal syndrome also possible infectious origin -Hold diuresis today -Continue strict I/O Obtain daily weights Hypertension: BP is acceptable and will continue Home medication, Amlodipine, Metoprolol and Hydralazine Acute on chronic systolic and diastolic CHF Patient presented with severe bilateral lower extremity edema. BNP was elevated at 199. Hold bumex for now - Edema has significantly improved Transthoracic echo images difficult to obtain. Will schedule for outpatient. Hypokalemia Potassium of 3.4 Replaced Diabetes II: ( Insulin Dependent): will continue Insulin Coronary Artery disease: Continue statin/plavix and Metoprolol can not tolerate SHE/ARB DVT prophylaxis: pt is on coumadin and pharmacy to dose Code Status: Discuss with pt and she is Full Code
[2020-03-19] MEDS: amLODIPine 5 MG Tab PO SCH (13:27)
[2020-03-19] MEDS ORDERED: Warfarin 5 MG Tab PO ONE (14:00)
[2020-03-19] MEDS: Pravastatin 20 MG Tab PO SCH (21:37)
[2020-03-19] MEDS: diphenhydrAMINE 25 MG Tab PO SCH (21:38)
[2020-03-19] MEDS: Melatonin 3 MG Tab PO PRN (21:42)
[2020-03-19] MEDS: INSULIN DEGLUDEC SUBCUT SCH (21:45)
[2020-03-20 06:44] LABS: ANION GAP 11.1 mEq/L (7-13)
[2020-03-20] MEDS: Insulin Lispro 100 Units/ML 3 ML Vial SUBCUT SCH ×4 (08:00→21:46)
[2020-03-20] MEDS: Clopidogrel 75 MG Tab PO SCH (08:20)
[2020-03-20] MEDS: Terazosin 5 MG Cap PO SCH ×2 (08:20→21:43)
[2020-03-20] MEDS: Acetaminophen 500 MG Tab PO SCH ×2 (08:20→21:45)
[2020-03-20] MEDS: Nystatin Topical Powder 30 GM Bottle TOP SCH ×2 (08:21→21:50)
[2020-03-20] MEDS: Potassium Chloride 10 MEQ Tab.ER PO SCH ×2 (08:21→17:04)
[2020-03-20] MEDS: Metoprolol Tartrate 50 MG Tab PO SCH (08:21)
[2020-03-20] MEDS: Sodium Chloride 0.9% 10 ML Syringe FLUSH PRN (08:23)
[2020-03-20] MEDS: hydrALAZINE 25 MG Tab PO SCH ×2 (10:17→21:43)
[2020-03-20] MEDS: amLODIPine 5 MG Tab PO SCH (11:46)
--- NOTE | 2020-03-20 11:47 | PCM.PN ---
- General Info Date of Service: 03/20/20 Admission Dx/Problem (Free Text): Admission Diagnosis/Problem Admission Diagnosis/Problem CHF, Congestive heart failure, acute Kidney Injury and Fever of unknown origin Subjective Update: Patient seen and examined today. Remains ff oxygen. Leg swelling markedly decreased. Afebrile overnight. Report feeling much better. - Review of Systems General: Reports: No Symptoms HEENT: Reports: No Symptoms Pulmonary: Reports: No Symptoms Cardiovascular: Reports: Edema (BLE edema significantly improved) Gastrointestinal: Reports: No Symptoms Genitourinary: Reports: No Symptoms Musculoskeletal: Reports: No Symptoms Skin: Reports: No Symptoms Neurological: Reports: No Symptoms Psychiatric: Reports: No Symptoms - Patient Data Vitals - Most Recent: Last Vital Signs Temp 96.4 F L 03/20/20 11:17 Pulse 55 L 03/20/20 11:17 Resp 18 03/20/20 11:17 BP 145/68 H 03/20/20 11:17 Pulse Ox 94 L 03/20/20 11:17 Weight - Most Recent: 252 lb 12.8 oz I&O - Last 24 Hours: Intake & Output 03/19/20 03/20/20 03/20/20 23:59 06:59 14:59 Intake Total 350 Output Total Balance 350 Lab Results Last 24 Hours: Laboratory Results - last 24 hr 03/19/20 03/19/20 03/20/20 Range/Units 16:41 20:48 05:45 PT 19.4 H (9.0-12.0) SEC INR 2.1 H (0.9-1.2) Sodium (136-145) mmol/L Potassium (3.5-5.1) mmol/L Chloride (98-107) mmol/L Carbon Dioxide (21-32) mmol/L Anion Gap (7-13) mEq/L BUN (7-18) mg/dL Creatinine (0.55-1.02) mg/dL Est Cr Clr Drug Dosing mL/min Estimated GFR (MDRD) Glucose (74-99) mg/dL POC Glucose 256 H 249 H (83-110) mg/dl Calcium (8.5-10.1) mg/dL 03/20/20 03/20/20 03/20/20 Range/Units 05:45 07:30 11:28 PT (9.0-12.0) SEC INR (0.9-1.2) Sodium 140 (136-145) mmol/L Potassium 4.1 (3.5-5.1) mmol/L Chloride 101 (98-107) mmol/L Carbon Dioxide 32 (21-32) mmol/L Anion Gap 11.1 (7-13) mEq/L BUN 22 H (7-18) mg/dL Creatinine 1.43 H (0.55-1.02) mg/dL Est Cr Clr Drug Dosing 28.12 mL/min Estimated GFR (MDRD) 36 Glucose 87 (74-99) mg/dL POC Glucose 98 145 H (83-110) mg/dl Calcium 9.4 (8.5-10.1) mg/dL Med Orders - Current: Current Medications Acetaminophen (Tylenol) 650 mg PO Q4H PRN PRN Reason: Pain (mild 1-3 )/fever Last Admin: 03/19/20 10:55 Dose: 650 mg Documented by: Acetaminophen (Tylenol Extra Strength) 1,000 mg PO BID [facility] Last Admin: 03/20/20 08:20 Dose: 1,000 mg Documented by: Amlodipine Besylate (Norvasc) 5 mg PO 1200 [facility] Last Admin: 03/19/20 13:27 Dose: 5 mg Documented by: Clopidogrel Bisulfate (Plavix) 75 mg PO DAILY [facility] Last Admin: 03/20/20 08:20 Dose: 75 mg Documented by: Dextrose/Water (Dextrose 50% In Water) 50 ml IV ASDIRECTED PRN PRN Reason: Hypoglycemia Diphenhydramine HCl (Benadryl) 25 mg PO BEDTIME [facility] Last Admin: 03/19/20 21:38 Dose: 25 mg Documented by: Docusate Sodium (Colace) 100 mg PO DAILY PRN PRN Reason: Constipation Glucagon (Glucagen) 1 mg IM ASDIRECTED PRN PRN Reason: Hypoglycemia Hydralazine HCl (Apresoline) 25 mg PO BID [facility] Last Admin: 03/20/20 10:17 Dose: 25 mg Documented by: Influenza Virus Vaccine (Pharmacy To Dose - Influenza Vaccine) 1 each IM DAILY [facility] Last Admin: 03/20/20 08:21 Dose: Not Given Documented by: Insulin Human Lispro (Humalog) 0 unit SUBCUT WITHMEALSANDBED [facility]; Protocol Last Admin: 03/20/20 11:41 Dose: Not Given Documented by: Melatonin (Melatonin) 3 mg PO BEDTIME PRN PRN Reason: Sleep Last Admin: 03/19/20 21:42 Dose: 3 mg Documented by: Metoprolol Tartrate (Lopressor) 100 mg PO BID [facility] Nystatin (Nystop) 0 gm TOP BID [facility] Last Admin: 03/20/20 08:21 Dose: 1 applicful Documented by: Insulin Degludec ( Tresiba) Inj *Own Med* 0 each SUBCUT BEDTIME [facility] Last Admin: 03/19/20 21:45 Dose: 55 each Documented by: Potassium Chloride (Klor-Con 10) 20 meq PO BIDMEALS [facility] Last Admin: 03/20/20 08:21 Dose: 20 meq Documented by: Pravastatin Sodium (Pravachol) 80 mg PO BEDTIME [facility] Last Admin: 03/19/20 21:37 Dose: 80 mg Documented by: Sodium Chloride (Saline Flush) 10 ml FLUSH ASDIRECTED PRN PRN Reason: Keep Vein Open Last Admin: 03/20/20 08:23 Dose: 10 ml Documented by: Terazosin HCl (Hytrin) 10 mg PO BID [facility] Last Admin: 03/20/20 08:20 Dose: 10 mg Documented by: Warfarin Sodium (Pharmacy To Dose - Warfarin) 1 dose .XX ASDIRECTED [facility] Warfarin Sodium (Coumadin) 3 mg PO ONETIME ONE Stop: 03/20/20 14:01 Discontinued Medications Azithromycin (Zithromax) Confirm Administered Dose 500 mg .ROUTE .STK-MED ONE Stop: 03/14/20 03:38 Last Admin: 03/14/20 03:44 Dose: Not Given Documented by: Bumetanide (Bumex) 1.5 mg IVPUSH BID ONE Stop: 03/13/20 04:16 Last Admin: 03/13/20 05:31 Dose: 1.5 mg Documented by: Bumetanide (Bumex) 1.5 mg IVPUSH BID [facility] Stop: 03/14/20 12:00 Last Admin: 03/14/20 09:19 Dose: 1.5 mg Documented by: Bumetanide (Bumex) 1 mg IVPUSH DAILY [facility] Bumetanide (Bumex) 2 mg IVPUSH BID [facility] Last Admin: 03/15/20 08:50 Dose: 2 mg Documented by: Bumetanide (Bumex) 2 mg IVPUSH TID [facility] Last Admin: 03/17/20 09:51 Dose: 2 mg Documented by: Bumetanide (Bumex) 3 mg IVPUSH TID [facility] Bumetanide (Bumex) 2 mg PO BIDDIURETIC [facility] Last Admin: 03/19/20 08:45 Dose: 2 mg Documented by: Furosemide (Lasix) 40 mg IVPUSH BID [facility] Furosemide (Lasix) 60 mg IV TID [facility] Last Admin: 03/18/20 08:57 Dose: 60 mg Documented by: Piperacillin Sod/Tazobactam (Sod 3.375 gm/ Sodium Chloride) 100 mls @ 200 mls/hr IV Q6H [facility] Azithromycin 500 mg/ Sodium (Chloride) 250 mls @ 250 mls/hr IV Q24H [facility] Last Admin: 03/14/20 03:44 Dose: 100 mls/hr Documented by: Piperacillin Sod/Tazobactam (Sod 3.375 gm/ Sodium Chloride) 100 mls @ 200 mls/hr IV ONETIME ONE Stop: 03/13/20 06:14 Last Admin: 03/13/20 06:52 Dose: 200 mls/hr Documented by: Piperacillin Sod/Tazobactam (Sod 2.25 gm/ Sodium Chloride) 50 mls @ 100 mls/hr IV Q6HR [facility] Last Admin: 03/16/20 05:25 Dose: 100 mls/hr Documented by: Azithromycin 500 mg/ Sodium (Chloride) 250 mls @ 250 mls/hr IV Q24H [facility] Last Admin: 03/16/20 04:04 Dose: 250 mls/hr Documented by: Insulin Glargine (Lantus) 55 unit SUBCUT BEDTIME [facility] Insulin Human Lispro (Humalog) 17 unit SUBCUT ACBREAKFAST [facility] Insulin Human Lispro (Humalog) 17 unit SUBCUT ACLUNCH [facility] Last Admin: 03/13/20 13:12 Dose: 17 units Documented by: Insulin Human Lispro (Humalog) 17 unit SUBCUT WITHDINNER@1700 [facility] Last Admin: 03/13/20 17:31 Dose: Not Given Documented by: Insulin Human Lispro (Humalog) 17 unit SUBCUT WITHBREAKFAST [facility] Last Admin: 03/13/20 08:53 Dose: 17 units Documented by: Levofloxacin (Levaquin) 500 mg PO Q24H [facility] Stop: 03/18/20 23:00 Last Admin: 03/16/20 10:32 Dose: Not Given Documented by: Levofloxacin (Levaquin) 500 mg PO Q48H [facility] Stop: 03/19/20 10:01 Last Admin: 03/18/20 08:59 Dose: 500 mg Documented by: Levofloxacin (Levaquin) 250 mg PO Q48H [facility] Stop: 03/19/20 10:01 Last Admin: 03/18/20 08:59 Dose: 250 mg Documented by: Metolazone (Zaroxolyn) 5 mg PO ONETIME ONE Stop: 03/16/20 13:01 Last Admin: 03/16/20 13:29 Dose: Not Given Documented by: Metoprolol Tartrate (Lopressor) 200 mg PO BID [facility] Last Admin: 03/20/20 08:21 Dose: Not Given Documented by: Non-Formulary Medication (Hydralazine [Apresoline]) 10 mg PO BID [facility] Last Admin: 03/14/20 14:38 Dose: Not Given Documented by: Ondansetron HCl (Zofran) 4 mg IVPUSH ONETIME ONE Stop: 03/12/20 23:08 Last Admin: 03/12/20 23:12 Dose: 4 mg Documented by: Potassium Chloride (Klor-Con 10) 10 meq PO BID [facility] Last Admin: 03/15/20 21:36 Dose: 10 meq Documented by: Potassium Chloride (Klor-Con 10) 40 meq PO ONETIME ONE Stop: 03/16/20 07:57 Last Admin: 03/16/20 09:10 Dose: 40 meq Documented by: Warfarin Sodium (Pharmacy To Dose - Warfarin) 1 dose .XX ASDIRECTED [facility] Warfarin Sodium (Coumadin) 3 mg PO ONETIME ONE Stop: 03/13/20 14:01 Last Admin: 03/13/20 13:13 Dose: 3 mg Documented by: Warfarin Sodium (Coumadin) 5 mg PO ONETIME ONE Stop: 03/14/20 14:01 Last Admin: 03/14/20 13:15 Dose: 5 mg Documented by: Warfarin Sodium (Coumadin) 5 mg PO ONETIME ONE Stop: 03/15/20 14:01 Last Admin: 03/15/20 14:09 Dose: 5 mg Documented by: Warfarin Sodium (Coumadin) 5 mg PO DAILY@1400 [facility] Stop: 03/16/20 14:01 Last Admin: 03/16/20 13:55 Dose: 5 mg Documented by: Warfarin Sodium (Coumadin) 3 mg PO ONETIME ONE Stop: 03/17/20 14:01 Last Admin: 03/17/20 13:07 Dose: 3 mg Documented by: Warfarin Sodium (Coumadin) 3 mg PO ONETIME ONE Stop: 03/18/20 14:01 Last Admin: 03/18/20 13:53 Dose: 3 mg Documented by: Warfarin Sodium (Coumadin) 5 mg PO ONETIME ONE Stop: 03/19/20 14:01 Last Admin: 03/19/20 13:27 Dose: 5 mg Documented by: Warfarin Sodium (Coumadin) 3 mg PO ONETIME ONE Stop: 03/20/20 07:16 Last Admin: 03/20/20 09:53 Dose: Not Given Documented by: - Exam General: Alert, Oriented HEENT: Pupils Equal, Pupils Reactive, EOMI, Mucous Membr. Moist/[place] Neck: Supple Lungs: Clear to Auscultation, Normal Respiratory Effort Cardiovascular: Regular Rate, Regular Rhythm GI/Abdominal Exam: Normal Bowel Sounds, Soft, Non-Tender, No Organomegaly, No Distention, No Abnormal Bruit, No Mass, Pelvis Stable Back Exam: Normal Inspection, Full Range of Motion Extremities: Pedal Edema (mild BLE edema) Skin: Warm, Dry, Intact Neurological: No New Focal Deficit Psy/Mental Status: Alert, Normal Affect, Normal Mood Sepsis Event Note - Evaluation Sepsis Screening Result: No Definite Risk - Focused Exam Vital Signs: Vital Signs Temp Pulse Pulse Resp BP BP Pulse Ox 03/20/20 11:17 96.4 F L 55 L 18 145/68 H 94 L 03/20/20 10:17 144/80 H 03/20/20 08:21 50 L 144/80 H 03/20/20 08:20 144/80 H 03/20/20 07:48 96.6 F L 50 L 18 144/80 H 93 L - Problem List Review Problem List Initiated/Reviewed/Updated: Yes - My Orders Last 24 Hours: My Active Orders 03/20/20 09:34 hydrALAZINE [Apresoline] 25 mg PO BID 03/20/20 14:00 Warfarin [Coumadin] 3 mg PO ONETIME ONE 03/20/20 21:00 Metoprolol Tartrate [Lopressor] 100 mg PO BID 03/21/20 06:00 INR,PT,PROTHROMBIN TIME [COAG] DAILY 03/22/20 06:00 INR,PT,PROTHROMBIN TIME [COAG] DAILY - Plan Plan:: Ms. Au is a 74-year-old pleasant morbidly obese female with past medical history of stroke, history of renal artery stenosis with a stent in May 2016, obstructive sleep apnea. Diabetes type 2, noninsulin-dependent with Minimal proteinuria, hyperlipidemia, hypertension, and coronary artery disease. She presented to ER with progressive shortness of breath and had low grade temperature with leukocytosis. CT of chest showed scant bilateral pleural effusion and CXR showed no acute infiltrate. U/A was negative for UTI. Impression and Plan: Acute hypoxic respiratory failure Probable pneumonia Patient presented with shortness of breath with fever and leukocytosis: Pt had CT and CXR showing no acute process. Suspect patient was developing early signs of pneumonia at background CHF exacerbation. -Completed Levaquin - Now off oxygen TULIO: The etiology not clear and likely from Medication and likely cardiorenal syndrome also possible infectious origin -Hold diuresis today -Continue strict I/O Obtain daily weights, Down to 252 lb. Hypertension: BP is acceptable and will continue Home medication, Amlodipine, Metoprolol and Hydralazine. Reduce metoprolol to 100 mg BID due to bradycardia. Acute on chronic systolic and diastolic CHF Patient presented with severe bilateral lower extremity edema. BNP was elevated at 199. - Continue bumex at 2mg daily p.o - Edema has significantly improved Transthoracic echo images difficult to obtain. Will schedule for outpatient. Hypokalemia Potassium of 3.4 Replaced Diabetes II: ( Insulin Dependent): will continue Insulin Coronary Artery disease: Continue statin/plavix and Metoprolol. Can not tolerate SHE/ARB DVT prophylaxis: pt is on coumadin and pharmacy to dose Code Status: Discuss with pt and she is Full Code
[2020-03-20] MEDS ORDERED: Metoprolol Tartrate 50 MG Tab PO SCH (21:00)
[2020-03-20] MEDS: Melatonin 3 MG Tab PO PRN (21:42)
[2020-03-20] MEDS: diphenhydrAMINE 25 MG Tab PO SCH (21:43)
[2020-03-20] MEDS: Pravastatin 20 MG Tab PO SCH (21:43)
[2020-03-20] MEDS: INSULIN DEGLUDEC SUBCUT SCH (21:48)
[2020-03-21] MEDS: Insulin Lispro 100 Units/ML 3 ML Vial SUBCUT SCH ×2 (08:59→11:39)
[2020-03-21] MEDS ORDERED: Bumetanide 1 MG Tab PO SCH (09:00)
[2020-03-21] MEDS ORDERED: hydrALAZINE 25 MG Tab PO SCH (09:00)
[2020-03-21] MEDS: Terazosin 5 MG Cap PO SCH (09:39)
[2020-03-21] MEDS: Potassium Chloride 10 MEQ Tab.ER PO SCH (09:39)
[2020-03-21] MEDS: Nystatin Topical Powder 30 GM Bottle TOP SCH (09:39)
[2020-03-21] MEDS: Clopidogrel 75 MG Tab PO SCH (09:39)
[2020-03-21] MEDS: Acetaminophen 500 MG Tab PO SCH (09:39)
[2020-03-21] MEDS: Sodium Chloride 0.9% 10 ML Syringe FLUSH PRN (09:41)
--- NOTE | 2020-03-21 09:52 | PCM.DCSUM1 ---
Discharge Summary - Hospital Course Free Text/Narrative:: Patient is a 74-year-old female with a medical history of obese, stroke, renal artery stenosis with a stent in May 2016, obstructive sleep apnea, type 2 diabetes, hyperlipidemia, hypertension, and coronary artery disease. She presented with shortness of breath, anasarca, low grade temperature, leukocytosis and TULIO on CKD. She had acute hypoxic respiratory failure due to pneumonia and acute on chronic systolic and diastolic CHF. Patient also had TULIO on CKD with creatinine peaking at 1.98. TTE was attempted but images obtained were poor due to patient's body habitus. She received antibiotics and aggressive diuresis with approximately 20 lb weight loss. Discharge weight was 253 lb. Patient will follow up with cardiology, nephrology and her primary care. She will also get outpatient cardiac echo. Patient will need PT for strengthening and endurance training; OT for home safety eval. She will also need fdc care for disease education and monitoring of CHF, and medication management. She requires assist of 1 and front wheel walker to leave her home. Diagnosis: Stroke: No - Discharge Data Discharge Date: 03/21/20 Discharge Disposition: Home, Self-Care 01 Condition: Stable - Referral to Home Health Primary Care Physician: Jody Wade MD - Patient Summary/Data Consults: Consultations 03/13/20 16:11 OT Evaluation and Treatment [CONS] Routine PT Evaluation and Treatment [CONS] Routine - Patient Instructions Diet: Heart Healthy Diet - Discharge Plan *PRESCRIPTION DRUG MONITORING PROGRAM REVIEWED*: Not Applicable *COPY OF PRESCRIPTION DRUG MONITORING REPORT IN PATIENT SUSHMA: Not Applicable Prescriptions/Med Rec: hydrALAZINE [Apresoline] 25 mg PO TID 90 Days #90 tablet Bumetanide [Bumex] 1 mg PO BIDDIURETIC 90 Days #60 tablet carvediloL [Carvedilol] 3.125 mg PO BID 90 Days #60 tablet Home Medications: Home Meds Acetaminophen [Acetaminophen Extra Strength] 1,000 mg PO BID 03/13/20 [History] Calcitriol 0.5 mcg PO BEDTIME 03/13/20 [History] Cholecalciferol (Vitamin D3) [Vitamin D3] 400 unit PO 1200 03/13/20 [History] Clopidogrel Bisulfate [Clopidogrel] 75 mg PO DAILY 03/13/20 [History] Insulin Aspart [NovoLOG] 17 unit SQ ACBREAKFAST 03/13/20 [History] Insulin Aspart [NovoLOG] 17 unit SQ ACLUNCH 03/13/20 [History] Insulin Aspart [NovoLOG] 17 unit SQ ASDIRECTED 03/13/20 [History] Insulin Degludec [Tresiba] 55 unit SQ BEDTIME 03/13/20 [History] Potassium Chloride [Klor-Con 10] 10 meq PO BID 03/13/20 [History] Pravastatin Sodium [Pravastatin (Pravachol)] 80 mg PO BEDTIME 03/13/20 [History] Terazosin HCl [Terazosin] 10 mg PO BID 03/13/20 [History] Warfarin [Coumadin] 3 mg PO .MON.SAT.SAT.SUN 03/13/20 [History] Warfarin [Coumadin] 5 mg PO .SAT..SAT 03/13/20 [History] diphenhydrAMINE [Benadryl] 25 mg PO BEDTIME 03/13/20 [History] Bumetanide [Bumex] 1 mg PO BIDDIURETIC 90 Days #60 tablet 03/21/20 [Rx] carvediloL [Carvedilol] 3.125 mg PO BID 90 Days #60 tablet 03/21/20 [Rx] hydrALAZINE [Apresoline] 25 mg PO TID 90 Days #90 tablet 03/21/20 [Rx] Oxygen Therapy Mode: Room Air Referrals: Jody Wade MD [Primary Care Provider] - - Discharge Summary/Plan Comment DC Time >30 min.: Yes - General Info Admission Dx/Problem (Free Text: Admission Diagnosis/Problem Admission Diagnosis/Problem CHF, Congestive heart failure, acute Kidney Injury and Fever of unknown origin Subjective Update: Patient seen and examined today. Remains off oxygen. Leg swelling markedly decreased. Afebrile overnight. Report feeling much better. - Review of Systems General: Reports: No Symptoms HEENT: Reports: No Symptoms Pulmonary: Reports: No Symptoms Cardiovascular: Reports: Edema Gastrointestinal: Reports: No Symptoms Genitourinary: Reports: No Symptoms Musculoskeletal: Reports: No Symptoms Skin: Reports: No Symptoms Neurological: Reports: No Symptoms Psychiatric: Reports: No Symptoms - Patient Data Vitals - Most Recent: Last Vital Signs Temp 96.7 F L 03/21/20 08:24 Pulse 55 L 03/21/20 08:24 Resp 20 03/21/20 08:24 BP 158/67 H 03/21/20 08:24 Pulse Ox 97 03/21/20 08:24 Weight - Most Recent: 253 lb 0.3 oz I&O - Last 24 hours: Intake & Output 03/20/20 03/21/20 03/21/20 22:59 06:59 14:59 Intake Total 400 Output Total 400 450 Balance 0 -450 Lab Results - Last 24 hrs: Laboratory Results - last 24 hr 03/20/20 03/20/20 03/20/20 Range/Units 11:28 16:44 20:42 PT (9.0-12.0) SEC INR (0.9-1.2) POC Glucose 145 H 204 H 250 H (83-110) mg/dl 03/21/20 03/21/20 Range/Units 06:05 07:53 PT 20.0 H (9.0-12.0) SEC INR 2.1 H (0.9-1.2) POC Glucose 107 (83-110) mg/dl Med Orders - Current: Current Medications Acetaminophen (Tylenol) 650 mg PO Q4H PRN PRN Reason: Pain (mild 1-3 )/fever Last Admin: 03/19/20 10:55 Dose: 650 mg Documented by: Acetaminophen (Tylenol Extra Strength) 1,000 mg PO BID [facility] Last Admin: 03/20/20 21:45 Dose: 1,000 mg Documented by: Amlodipine Besylate (Norvasc) 5 mg PO 1200 [facility] Last Admin: 03/20/20 11:46 Dose: 5 mg Documented by: Bumetanide (Bumex) 1 mg PO BIDDIURETIC [facility] Clopidogrel Bisulfate (Plavix) 75 mg PO DAILY [facility] Last Admin: 03/20/20 08:20 Dose: 75 mg Documented by: Dextrose/Water (Dextrose 50% In Water) 50 ml IV ASDIRECTED PRN PRN Reason: Hypoglycemia Diphenhydramine HCl (Benadryl) 25 mg PO BEDTIME [facility] Last Admin: 03/20/20 21:43 Dose: 25 mg Documented by: Docusate Sodium (Colace) 100 mg PO DAILY PRN PRN Reason: Constipation Glucagon (Glucagen) 1 mg IM ASDIRECTED PRN PRN Reason: Hypoglycemia Hydralazine HCl (Apresoline) 25 mg PO TID [facility] Influenza Virus Vaccine (Pharmacy To Dose - Influenza Vaccine) 1 each IM DAILY [facility] Last Admin: 03/20/20 08:21 Dose: Not Given Documented by: Insulin Human Lispro (Humalog) 0 unit SUBCUT WITHMEALSANDBED [facility]; Protocol Last Admin: 03/21/20 08:59 Dose: Not Given Documented by: Melatonin (Melatonin) 3 mg PO BEDTIME PRN PRN Reason: Sleep Last Admin: 03/20/20 21:42 Dose: 3 mg Documented by: Nystatin (Nystop) 0 gm TOP BID [facility] Last Admin: 03/20/20 21:50 Dose: 1 applicful Documented by: Insulin Degludec ( Tresiba) Inj *Own Med* 0 each SUBCUT BEDTIME [facility] Last Admin: 03/20/20 21:48 Dose: 55 each Documented by: Potassium Chloride (Klor-Con 10) 20 meq PO BIDMEALS [facility] Last Admin: 03/20/20 17:04 Dose: 20 meq Documented by: Pravastatin Sodium (Pravachol) 80 mg PO BEDTIME [facility] Last Admin: 03/20/20 21:43 Dose: 80 mg Documented by: Sodium Chloride (Saline Flush) 10 ml FLUSH ASDIRECTED PRN PRN Reason: Keep Vein Open Last Admin: 03/20/20 08:23 Dose: 10 ml Documented by: Terazosin HCl (Hytrin) 10 mg PO BID [facility] Last Admin: 03/20/20 21:43 Dose: 10 mg Documented by: Warfarin Sodium (Pharmacy To Dose - Warfarin) 1 dose .XX ASDIRECTED [facility] Warfarin Sodium (Coumadin) 3 mg PO ONETIME ONE Stop: 03/21/20 14:01 Discontinued Medications Azithromycin (Zithromax) Confirm Administered Dose 500 mg .ROUTE .STK-MED ONE Stop: 03/14/20 03:38 Last Admin: 03/14/20 03:44 Dose: Not Given Documented by: Bumetanide (Bumex) 1.5 mg IVPUSH BID ONE Stop: 03/13/20 04:16 Last Admin: 03/13/20 05:31 Dose: 1.5 mg Documented by: Bumetanide (Bumex) 1.5 mg IVPUSH BID [facility] Stop: 03/14/20 12:00 Last Admin: 03/14/20 09:19 Dose: 1.5 mg Documented by: Bumetanide (Bumex) 1 mg IVPUSH DAILY [facility] Bumetanide (Bumex) 2 mg IVPUSH BID [facility] Last Admin: 03/15/20 08:50 Dose: 2 mg Documented by: Bumetanide (Bumex) 2 mg IVPUSH TID [facility] Last Admin: 03/17/20 09:51 Dose: 2 mg Documented by: Bumetanide (Bumex) 3 mg IVPUSH TID [facility] Bumetanide (Bumex) 2 mg PO BIDDIURETIC [facility] Last Admin: 03/19/20 08:45 Dose: 2 mg Documented by: Furosemide (Lasix) 40 mg IVPUSH BID [facility] Furosemide (Lasix) 60 mg IV TID [facility] Last Admin: 03/18/20 08:57 Dose: 60 mg Documented by: Hydralazine HCl (Apresoline) 25 mg PO BID [facility] Last Admin: 03/20/20 21:43 Dose: 25 mg Documented by: Piperacillin Sod/Tazobactam (Sod 3.375 gm/ Sodium Chloride) 100 mls @ 200 mls/hr IV Q6H [facility] Azithromycin 500 mg/ Sodium (Chloride) 250 mls @ 250 mls/hr IV Q24H [facility] Last Admin: 03/14/20 03:44 Dose: 100 mls/hr Documented by: Piperacillin Sod/Tazobactam (Sod 3.375 gm/ Sodium Chloride) 100 mls @ 200 mls/hr IV ONETIME ONE Stop: 03/13/20 06:14 Last Admin: 03/13/20 06:52 Dose: 200 mls/hr Documented by: Piperacillin Sod/Tazobactam (Sod 2.25 gm/ Sodium Chloride) 50 mls @ 100 mls/hr IV Q6HR [facility] Last Admin: 03/16/20 05:25 Dose: 100 mls/hr Documented by: Azithromycin 500 mg/ Sodium (Chloride) 250 mls @ 250 mls/hr IV Q24H [facility] Last Admin: 03/16/20 04:04 Dose: 250 mls/hr Documented by: Insulin Glargine (Lantus) 55 unit SUBCUT BEDTIME [facility] Insulin Human Lispro (Humalog) 17 unit SUBCUT ACBREAKFAST [facility] Insulin Human Lispro (Humalog) 17 unit SUBCUT ACLUNCH [facility] Last Admin: 03/13/20 13:12 Dose: 17 units Documented by: Insulin Human Lispro (Humalog) 17 unit SUBCUT WITHDINNER@1700 [facility] Last Admin: 03/13/20 17:31 Dose: Not Given Documented by: Insulin Human Lispro (Humalog) 17 unit SUBCUT WITHBREAKFAST [facility] Last Admin: 03/13/20 08:53 Dose: 17 units Documented by: Levofloxacin (Levaquin) 500 mg PO Q24H [facility] Stop: 03/18/20 23:00 Last Admin: 03/16/20 10:32 Dose: Not Given Documented by: Levofloxacin (Levaquin) 500 mg PO Q48H [facility] Stop: 03/19/20 10:01 Last Admin: 03/18/20 08:59 Dose: 500 mg Documented by: Levofloxacin (Levaquin) 250 mg PO Q48H [facility] Stop: 03/19/20 10:01 Last Admin: 03/18/20 08:59 Dose: 250 mg Documented by: Metolazone (Zaroxolyn) 5 mg PO ONETIME ONE Stop: 03/16/20 13:01 Last Admin: 03/16/20 13:29 Dose: Not Given Documented by: Metoprolol Tartrate (Lopressor) 200 mg PO BID [facility] Last Admin: 03/20/20 08:21 Dose: Not Given Documented by: Metoprolol Tartrate (Lopressor) 100 mg PO BID [facility] Last Admin: 03/20/20 21:44 Dose: 100 mg Documented by: Non-Formulary Medication (Hydralazine [Apresoline]) 10 mg PO BID [facility] Last Admin: 03/14/20 14:38 Dose: Not Given Documented by: Ondansetron HCl (Zofran) 4 mg IVPUSH ONETIME ONE Stop: 03/12/20 23:08 Last Admin: 03/12/20 23:12 Dose: 4 mg Documented by: Potassium Chloride (Klor-Con 10) 10 meq PO BID [facility] Last Admin: 03/15/20 21:36 Dose: 10 meq Documented by: Potassium Chloride (Klor-Con 10) 40 meq PO ONETIME ONE Stop: 03/16/20 07:57 Last Admin: 03/16/20 09:10 Dose: 40 meq Documented by: Warfarin Sodium (Pharmacy To Dose - Warfarin) 1 dose .XX ASDIRECTED [facility] Warfarin Sodium (Coumadin) 3 mg PO ONETIME ONE Stop: 03/13/20 14:01 Last Admin: 03/13/20 13:13 Dose: 3 mg Documented by: Warfarin Sodium (Coumadin) 5 mg PO ONETIME ONE Stop: 03/14/20 14:01 Last Admin: 03/14/20 13:15 Dose: 5 mg Documented by: Warfarin Sodium (Coumadin) 5 mg PO ONETIME ONE Stop: 03/15/20 14:01 Last Admin: 03/15/20 14:09 Dose: 5 mg Documented by: Warfarin Sodium (Coumadin) 5 mg PO DAILY@1400 [facility] Stop: 03/16/20 14:01 Last Admin: 03/16/20 13:55 Dose: 5 mg Documented by: Warfarin Sodium (Coumadin) 3 mg PO ONETIME ONE Stop: 03/17/20 14:01 Last Admin: 03/17/20 13:07 Dose: 3 mg Documented by: Warfarin Sodium (Coumadin) 3 mg PO ONETIME ONE Stop: 03/18/20 14:01 Last Admin: 03/18/20 13:53 Dose: 3 mg Documented by: Warfarin Sodium (Coumadin) 5 mg PO ONETIME ONE Stop: 03/19/20 14:01 Last Admin: 03/19/20 13:27 Dose: 5 mg Documented by: Warfarin Sodium (Coumadin) 3 mg PO ONETIME ONE Stop: 03/20/20 07:16 Last Admin: 03/20/20 09:53 Dose: Not Given Documented by: Warfarin Sodium (Coumadin) 3 mg PO ONETIME ONE Stop: 03/20/20 14:01 Last Admin: 03/20/20 13:53 Dose: 3 mg Documented by: - Exam General: Reports: Alert, Oriented HEENT: Reports: Pupils Equal, Pupils Reactive, EOMI, Mucous Membr. Moist/Daisy Neck: Reports: Supple Lungs: Reports: Clear to Auscultation, Normal Respiratory Effort Cardiovascular: Reports: Regular Rate, Regular Rhythm GI/Abdominal Exam: Normal Bowel Sounds, Soft, Non-Tender, No Organomegaly, No Distention, No Abnormal Bruit, No Mass, Pelvis Stable Back Exam: Reports: Normal Inspection, Full Range of Motion Extremities: Pedal Edema Skin: Reports: Warm, Dry, Intact Neurological: Reports: No New Focal Deficit Psy/Mental Status: Reports: Alert, Normal Affect, Normal Mood
[2020-03-21 10:42] LABS: ANION GAP 9.4 mEq/L (7-13)
[2020-03-21 11:36] VITALS: BP 153/60; PULSE 63
[2020-03-21] MEDS: amLODIPine 5 MG Tab PO SCH (11:36)
== END 2020-03-21 13:30 | disposition home or self-care (01) | DRG 291 ==
LOC: DL.ED 22:30 → DL.MS 03-13 02:35 → UNDOADMIN 03-13 02:40
PROVIDERS: ADMIT Internal Medicine Nephrology; ATTEND Internal Medicine
DX: I13.0 Hypertensive heart and chronic kidney disease with heart failure and stage 1 through stage 4 chronic kidney disease, or unspecified chronic kidney disease (principal); I50.9 Heart failure, unspecified; J96.01 Acute respiratory failure with hypoxia; I50.43 Acute on chronic combined systolic (congestive) and diastolic (congestive) heart failure; I11.0 Hypertensive heart disease with heart failure; J18.9 Pneumonia, unspecified organism; N17.9 Acute kidney failure, unspecified; E11.9 Type 2 diabetes mellitus without complications; E66.9 Obesity, unspecified; Z68.41 Body mass index [BMI] 40.0-44.9, adult; K21.9 Gastro-esophageal reflux disease without esophagitis; Z79.84 Long term (current) use of oral hypoglycemic drugs; Z79.02 Long term (current) use of antithrombotics/antiplatelets; Z79.82 Long term (current) use of aspirin; M19.90 Unspecified osteoarthritis, unspecified site; D72.829 Elevated white blood cell count, unspecified; E66.01 Morbid (severe) obesity due to excess calories; Z96.89 Presence of other specified functional implants; E11.29 Type 2 diabetes mellitus with other diabetic kidney complication; E78.5 Hyperlipidemia, unspecified; I25.10 Atherosclerotic heart disease of native coronary artery without angina pectoris; G47.33 Obstructive sleep apnea (adult) (pediatric); E87.6 Hypokalemia; Z20.828 Contact with and (suspected) exposure to other viral communicable diseases; N18.9 Chronic kidney disease, unspecified; Z88.8 Allergy status to other drugs, medicaments and biological substances; Z91.048 Other nonmedicinal substance allergy status; Z88.6 Allergy status to analgesic agent; Z88.5 Allergy status to narcotic agent; Z79.4 Long term (current) use of insulin; Z79.01 Long term (current) use of anticoagulants; Z79.899 Other long term (current) drug therapy; Z99.81 Dependence on supplemental oxygen; Z86.73 Personal history of transient ischemic attack (TIA), and cerebral infarction without residual deficits; Z87.448 Personal history of other diseases of urinary system
CPT/HCPCS: 36415 ×2; 51702; 71045; 71250; 80053; 81001; 83605; 83880; 84484; 85025; 87040 ×2; 93005; 96374; 99284; 99285; J2405; 80048; 82962; 83735; 85027; 85610; 93306; 97110-GP; 97116-GP; 97140-GO; 97162-GP; 97166-GO; 97530-GO; A9270-GY; J0456; J1815-GY; J1940; J2543; J3490; J7050; U0002

== ENCOUNTER 2020-09-13 13:08 | Observation (INO) | payer MEDICARE, OTHER ==
[2020-09-13] MEDS ORDERED: Ondansetron 4 MG Tab.DIS PO PRN (13:49)
[2020-09-13] MEDS ORDERED: Albumin 25% 12.5 GM/50 ML BAG IV ONE (14:00)
[2020-09-13] MEDS ORDERED: Acetaminophen 500 MG Tab PO PRN (14:19)
[2020-09-13] MEDS ORDERED: Non-Formulary Medication 1 Each (Warfarin 3 MG Tablet) PO SCH (14:30)
[2020-09-13] MEDS ORDERED: Warfarin 5 MG Tab PO SCH (15:00)
[2020-09-13] MEDS ORDERED: Non-Formulary Medication 1 Each (Insulin Aspart 100 UNIT/ML Vial) SQ SCH (17:00)
[2020-09-13] MEDS: Ampicillin/Sulbactam Na 3 GM in Sodium Chloride 0.9% 100 ML IV SCH (17:37)
[2020-09-13] MEDS ORDERED: LORazepam 1 MG Tab PO ONE (20:02)
[2020-09-13] MEDS: Terazosin 5 MG Cap PO SCH (20:57)
[2020-09-13] MEDS: Spironolactone 25 MG Tab PO SCH (20:57)
[2020-09-13] MEDS: OLANZapine 5 MG Tab PO PRN (20:57)
[2020-09-13] MEDS ORDERED: Calcitriol 0.25 MCG Cap PO SCH (21:00)
[2020-09-13] MEDS ORDERED: hydrALAZINE 25 MG Tab PO SCH (21:00)
[2020-09-13] MEDS ORDERED: Carvedilol 3.125 MG Tab PO SCH (21:00)
[2020-09-13] MEDS ORDERED: Pravastatin 20 MG Tab PO SCH (21:00)
--- NOTE | 2020-09-13 23:35 | PCM.HP ---
H&P History of Present Illness - General Date of Service: 09/13/20 Admit Problem/Dx: Admission Diagnosis/Problem Admission Diagnosis/Problem Cellulitis - History of Present Illness Initial Comments - Free Text/Narative: Angely is a 74-year-old woman who was admitted today from the primary care clinic. She came to see her primary care provider, and was complaining of worsening rash on her to lower extremities. She also has been having more shortness of breath than her usual. Angely has known severe chronic diastolic congestive heart failure, and has severe lower extremity edema because of this. Her primary care provider has been trying to get her to come in for a lymphedema assessment, but her and her live quite a distance from [facility], so it is difficult for them to get in. She also states that she has not been able to shower daily which she prefers, because she is too short of breath to even get in the shower. She does not report any chest pain today, no fevers or chills. Her primary care provider was also quite concerned about the worsening erythema and induration with her right lower leg. Because of her chronic lower extremity edema, Angely does have fairly significant stasis dermatitis of both lower extremities. She was developing significant erythema and some induration with the right lower leg, was actually placed on doxycycline a few days ago. According to her primary care provider, the induration has gotten worse. - Related Data Allergies/Adverse Reactions: Allergies Allergy/AdvReac Type Severity Reaction Status Date / Time metformin Allergy Unknown Diarrhea Verified 03/13/20 03:46 zinc Allergy Unknown UNKNOWN Verified 03/13/20 03:46 acetaminophen [From [place]] Allergy Hyperactivi Verified 03/13/20 03:46 ty amlodipine [From Lotrel] Allergy Other Verified 03/13/20 03:46 benazepril [From Lotrel] Allergy Other Verified 03/13/20 03:46 clonidine Allergy Itching Verified 03/13/20 03:46 codeine Allergy Other Verified 03/13/20 03:46 fosinopril [From Monopril] Allergy Other Verified 03/13/20 03:46 hydrocodone [From [place]] Allergy Hyperactivi Verified 03/13/20 03:46 ty irbesartan [From Avapro] Allergy Other Verified 03/13/20 03:46 lorazepam [From Ativan] Allergy Hyperactivi Verified 03/13/20 03:46 ty metolazone Allergy Rash Verified 03/16/20 13:29 ramipril [From Altace] Allergy Other Verified 03/13/20 03:46 verapamil [From Verelan] Allergy Other Verified 03/13/20 03:46 Home Medications: Home Meds Acetaminophen [Acetaminophen Extra Strength] 1,000 mg PO BID PRN 03/13/20 [History] Cholecalciferol (Vitamin D3) [Vitamin D3] 400 unit PO 1200 03/13/20 [History] Clopidogrel Bisulfate [Clopidogrel] 75 mg PO DAILY 03/13/20 [History] Insulin Degludec [Tresiba] 55 unit SQ BEDTIME 03/13/20 [History] Potassium Chloride [Klor-Con 10] 10 meq PO BID 03/13/20 [History] Terazosin HCl [Terazosin] 10 mg PO BID 03/13/20 [History] Warfarin [Coumadin] 5 mg PO .BARRERA,TU,WE,FR,SA 03/13/20 [History] diphenhydrAMINE [Benadryl] 25 mg PO BEDTIME 03/13/20 [History] Bumetanide [Bumex] 1 mg PO BIDDIURETIC 90 Days #60 tablet 03/21/20 [Rx] carvediloL [Carvedilol] 3.125 mg PO BID 90 Days #60 tablet 03/21/20 [Rx] Benzonatate 200 mg PO TID PRN 09/13/20 [History] Insulin Aspart [NovoLOG] 17 units SUBCUT TIDAC 09/13/20 [History] Multivitamin with Minerals [Multivitamins with Minerals] 1 tab PO DAILY 09/13/20 [History] Pravastatin Sodium 80 mg PO BEDTIME 09/13/20 [History] Warfarin [Coumadin] 4 mg PO .MO,TH 09/13/20 [History] calcitrioL [Calcitriol] 0.5 mcg PO BEDTIME 09/13/20 [History] hydrALAZINE [Apresoline] 25 mg PO BID@1200,2100 09/13/20 [History] hydrALAZINE [Apresoline] 50 mg PO WITHBREAKFAST 09/13/20 [History] traZODone 50 mg PO BEDTIME 09/13/20 [History] Past Medical History HEENT History: Reports: Cataract Cardiovascular History: Reports: Hypertension, Other (See Below) Other Cardiovascular History: systolic and diastolic CHF. 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 coronary artery disease involving [place] coronary artery of [place] heart without angina pectoris. essential hypertension carotid stenosis right. 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 - Infectious Disease History Infectious Disease History: Reports: Chicken Pox - Past Surgical History Neurological Surgical History: Reports: None Social & Family History - Family History Family Medical History: No Pertinent Family History - Tobacco Use Tobacco Use Status *Q: Never Tobacco User Second Hand Smoke Exposure: No - Caffeine Use Caffeine Use: Reports: Coffee - Recreational Drug Use Recreational Drug Use: No H&P Review of Systems - Review of Systems: Review Of Systems: See Below Review of Systems Comment:: General: No recent weight gain or weight loss, no fevers or chills HEENT: No headache or vertigo, no difficulty with speaking or swallowing Cardiovascular: See HPI Respiratory: See HPI Gastrointestinal: No nausea or vomiting, no diarrhea or constipation, no hematochezia or melena Endocrine: No abnormal rashing or bruising, no intolerance to heat or cold Integumentary: See HPI Musculoskeletal: No myalgias or arthralgias Psychological: No increased anxiety or depressive type symptoms Rest of the review of systems is complete and negative Exam - Exam Exam: See Below - Vital Signs Vital Signs: Last Vital Signs Temp 98.7 F 09/13/20 13:49 Pulse 94 09/13/20 20:59 Resp 20 09/13/20 13:49 BP 155/86 H 09/13/20 20:59 Pulse Ox 93 L 09/13/20 13:49 Weight: 275 lb 9.6 oz - Exam Physical Exam Comments:: General: Ann Marie is a 74 old woman who is visibly dyspneic but in no acute distress. She does not appear to be in actual respiratory distress. Oropharynx is clear, mucous membranes are moist Neck: Supple, no lymphadenopathy, she does have some elevated JVD noted Heart: Regular rate and rhythm, 2 out of 6 systolic murmur best heard over the left sternal border Lungs: Significant crackles in both bases, no areas of consolidation heard, no expiratory wheezing noted Left lower extremity: She does have significant stasis dermatitis with some erythema because of this Right lower extremity: Significant stasis dermatitis with some erythema and induration and several large patches on her lower extremity. No areas of fluctuance are noted, no apparent abscess formation Neurological: Cranial nerves II through XII are grossly intact - Patient Data Lab Results Last 24 hrs: Laboratory Results - last 24 hr 09/13/20 09/13/20 09/13/20 Range/Units 14:17 14:17 17:04 PT 20.1 H (9.0-12.0) SEC INR 2.0 H (0.9-1.2) POC Glucose 172 H (70-99) mg/dL Troponin I 0.017 (0.000-0.056) ng/mL 09/13/20 Range/Units 21:21 PT (9.0-12.0) SEC INR (0.9-1.2) POC Glucose 159 H (70-99) mg/dL Troponin I (0.000-0.056) ng/mL *Q Meaningful Use (ADM) - VTE Risk Assess *Q Each Risk Factor Represents 3 Points: Age 75 Years or Greater Total Score 3 Point Risk Factors: 3 - Problem List (1) Cellulitis SNOMED Code(s): 326592855 ICD Code: L03.90 - CELLULITIS, UNSPECIFIED Status: Acute Current Visit: Yes (2) Congestive heart failure SNOMED Code(s): 89604475 ICD Code: I50.9 - HEART FAILURE, UNSPECIFIED Status: Chronic Priority: High Current Visit: No Qualifiers: Heart failure type: unspecified Heart failure chronicity: acute on chronic Qualified Code(s): I50.9 - Heart failure, unspecified (3) Lower extremity edema SNOMED Code(s): 034359799 ICD Code: R60.0 - LOCALIZED EDEMA Status: Chronic Current Visit: Yes Problem Details: Bilateral lower extremity edema with stasis dermatitis Problem List Initiated/Reviewed/Updated: Yes Orders Last 24hrs: Active Orders 24 hr Category Date Time Status Patient Status [ADT] Routine ADT 09/13/20 13:49 Active Blood Glucose Check, Bedside [RC] QIDACANDBED Care 09/13/20 13:49 Active Height and Weight [RC] 0600 Care 09/13/20 13:49 Active Intake and Output [RC] 06,14,22 Care 09/13/20 13:51 Active Oxygen Therapy [RC] .PRN Care 09/13/20 13:49 Active Up ad June [RC] ASDIRECTED Care 09/13/20 13:49 Active VTE/DVT Education [RC] 09,21 Care 09/13/20 13:49 Active Vital Signs [RC] 00,04,08,12,16,20 Care 09/13/20 13:49 Active Regular Diet [DIET] Diet 09/13/20 Dinner Active Chest 2V [CR] Routine Exams 09/14/20 08:00 Ordered Acetaminophen [TylenoL] Med 09/13/20 13:49 Active 650 mg PO Q4H PRN Acetaminophen [Tylenol Extra Strength] Med 09/13/20 14:19 Active 1,000 mg PO BID PRN Ampicillin/Sulbactam Na [Unasyn] 3 gm Med 09/13/20 18:00 Active Sodium Chloride 0.9% [Normal Saline] 100 ml IV Q12HR Cholecalciferol (Vitamin D3) [Vitamin D3] Med 09/14/20 12:00 Active 10 mcg PO DAILY@1200 Clopidogrel [Plavix] Med 09/14/20 09:00 Active 75 mg PO DAILY Insulin Degludec [Tresiba] Med 09/13/20 21:00 Pending 55 unit SQ BEDTIME Insulin Lispro [HumaLOG] Med 09/14/20 06:00 Active 17 unit SUBCUT TIDAC OLANZapine [ZyPREXA] Med 09/13/20 20:17 Active 5 mg PO Q12H PRN Ondansetron [Zofran ODT] Med 09/13/20 13:49 Active 4 mg PO Q6H PRN Pravastatin [Pravachol] Med 09/13/20 21:00 Active 80 mg PO BEDTIME Spironolactone [Aldactone] Med 09/13/20 21:00 Active 12.5 mg PO BID Terazosin [Hytrin] Med 09/13/20 21:00 Active 10 mg PO BID Warfarin Med 09/13/20 14:30 Pending 3 mg PO . Warfarin [Coumadin] Med 09/13/20 15:00 Active 5 mg PO TuThSa@1400 calcitrioL [Rocaltrol] Med 09/13/20 21:00 Active 0.5 mcg PO BEDTIME carvediloL [Coreg] Med 09/13/20 21:00 Active 3.125 mg PO BID hydrALAZINE [Apresoline] Med 09/13/20 21:00 Pending 25 mg PO TID Resuscitation Status Routine Resus Stat 09/13/20 13:49 Ordered Medication Orders Acetaminophen (Acetaminophen 325 Mg Tab) 650 mg PO Q4H PRN PRN Reason: Pain (Mild 1-3)/fever Acetaminophen (Acetaminophen 500 Mg Tab) 1,000 mg PO BID PRN PRN Reason: Pain (mild 1-3) Last Admin: 09/13/20 19:22 Dose: 1,000 mg Documented by: PANFILO Calcitriol (Calcitriol 0.25 Mcg Cap) 0.5 mcg PO BEDTIME [facility] Last Admin: 09/13/20 20:58 Dose: 0.5 mcg Documented by: PANFILO Carvedilol (Carvedilol 3.125 Mg Tab) 3.125 mg PO BID [facility] Last Admin: 09/13/20 20:59 Dose: 3.125 mg Documented by: PANFILO Cholecalciferol (Cholecalciferol (Vitamin D3) 10 Mcg Tab) 10 mcg PO DAILY@1200 [facility] Clopidogrel Bisulfate (Clopidogrel 75 Mg Tab) 75 mg PO DAILY [facility] Hydralazine HCl (Hydralazine 25 Mg Tab) 25 mg PO TID [facility] Ampicillin Sodium/Sulbactam (Sodium 3 gm/ Sodium Chloride) 100 mls @ 100 mls/hr IV Q12HR [facility] Last Infusion: 09/13/20 19:05 Dose: 100 mls/hr Documented by: Admin: 09/13/20 17:37 Dose: 100 mls/hr Documented by: LOREN Insulin Human Lispro (Insulin Lispro 100 Units/Ml 3 Ml Vial) 17 unit SUBCUT TIDAC [facility] Non-Formulary Medication (Warfarin) 3 mg PO .[facility] Non-Formulary Medication (Insulin Degludec [Tresiba]) 55 unit SQ BEDTIME [facility] Olanzapine (Olanzapine 5 Mg Tab) 5 mg PO Q12H PRN PRN Reason: Anxiety Last Admin: 09/13/20 20:57 Dose: 5 mg Documented by: PANFILO Ondansetron HCl (Ondansetron 4 Mg Tab.Dis) 4 mg PO Q6H PRN PRN Reason: nausea, able to take PO Pravastatin Sodium (Pravastatin 20 Mg Tab) 80 mg PO BEDTIME [facility] Last Admin: 09/13/20 20:58 Dose: 80 mg Documented by: PANFILO Spironolactone (Spironolactone 25 Mg Tab) 12.5 mg PO BID [facility] Last Admin: 09/13/20 20:57 Dose: 12.5 mg Documented by: PANFILO Terazosin HCl (Terazosin 5 Mg Cap) 10 mg PO BID [facility] Last Admin: 09/13/20 20:57 Dose: 10 mg Documented by: PANFILO Warfarin Sodium (Warfarin 5 Mg Tab) 5 mg PO TuThSa@1400 [facility] Last Admin: 09/13/20 16:01 Dose: Not Given Documented by: LOREN Assessment/Plan Comment:: Assessment: 1. 74-year-old woman with severe acute on chronic combined systolic and diastolic congestive heart failure 2. Severe bilateral lower extremity edema, chronic, with stasis dermatitis 3. Cellulitis of the right lower extremity secondary to #2 Plan: 1. Admit her to observation 2. We will start Unasyn, 3 g every 12 hours IV 3. Occupational Therapy will come for consultation with her lower extremity edema to see if they can do any therapy with her 4. I will give her albumin, 50 g IV x1 to see if we can get her oncotic pressure to shift so we can get her diuresed. She looks like that she is fluid overloaded at least 10 to 15 pounds 5. She is taking Bumex at home, which is most likely no longer working well for her. We will stop that and give her some IV Lasix here in the hospital tomorrow morning after the albumin has been administered. 6. She is not on any kind of SHE or ARB at this time, so she should tolerate spironolactone well. I think this will be helpful for her going forward. I will start her on 12.5 mg twice daily 7. We will reassess her clinically in the a.m.
[2020-09-13] MEDS ORDERED: WARFARIN 4 MG PO SCH (23:45)
[2020-09-14] MEDS: diphenhydrAMINE 25 MG Tab PO SCH ×2 (00:22→21:47)
[2020-09-14] MEDS: Acetaminophen 325 MG Tab PO PRN ×2 (00:37→10:35)
[2020-09-14] MEDS ORDERED: Non-Formulary Medication 1 Each (Insulin Aspart 100 UNIT/ML Vial) SUBCUT SCH (06:00)
[2020-09-14] MEDS: Insulin Lispro 100 Units/ML 3 ML Vial SUBCUT SCH ×3 (07:57→17:14)
[2020-09-14] MEDS ORDERED: Carvedilol 3.125 MG Tab PO SCH (08:00)
[2020-09-14] MEDS: Ampicillin/Sulbactam Na 3 GM in Sodium Chloride 0.9% 100 ML IV SCH ×2 (08:15→21:28)
[2020-09-14] MEDS: Spironolactone 25 MG Tab PO SCH ×2 (08:19→21:41)
[2020-09-14] MEDS: Terazosin 5 MG Cap PO SCH (08:20)
--- NOTE | 2020-09-14 08:23 | CR ---
PROCEDURE INFORMATION: Exam: XR Chest Exam date and time: 09/14/2020 7:30 AM Age: 74 years old Clinical indication: Condition or disease; Lung condition and disease; Pneumonia; Additional info: To follow infiltrate on cxr TECHNIQUE: Imaging protocol: XR of the chest. Views: 2 views. COMPARISON: CT Chest wo Cont, Chest wo Cont 03/13/2020 1:40 AM FINDINGS: Limitations: Body habitus degrades image quality and signal to noise ratio compromising the study. Lungs: Patchy airspace disease and atelectasis at the right lower lung field. Pleural spaces: Unremarkable. No pleural effusion. No pneumothorax. Heart/Mediastinum: The heart is enlarged. Diaphragm: There is an elevated right hemidiaphragm present on the current examination. Bones/joints: Unremarkable. IMPRESSION: 1. Patchy airspace disease and atelectasis at the right lower lung field. 2. Followup radiographs recommended after appropriate therapy.
[2020-09-14] MEDS ORDERED: Clopidogrel 75 MG Tab PO SCH (09:00)
[2020-09-14] MEDS: OLANZapine 5 MG Tab PO PRN ×2 (10:35→23:26)
[2020-09-14] MEDS ORDERED: Non-Formulary Medication 1 Each (Insulin Aspart 100 UNIT/ML Vial) SQ SCH (11:00)
[2020-09-14] MEDS ORDERED: hydrALAZINE 25 MG Tab PO SCH (12:00)
[2020-09-14] MEDS ORDERED: Cholecalciferol (Vitamin D3) 10 MCG Tab PO SCH (12:00)
[2020-09-14] MEDS ORDERED: CALCITRIOL 0.25 MCG PO SCH (12:40)
[2020-09-14] MEDS ORDERED: Clopidogrel 75 MG Tab **PT OWN MED PO SCH (12:51)
[2020-09-14] MEDS ORDERED: Furosemide 40 MG/4 ML VIAL IVPUSH ONE (13:57)
[2020-09-14] MEDS ORDERED: WARFARIN 5 MG PO SCH (14:00)
[2020-09-14] MEDS: CARVEDILOL 3.125 MG PO SCH (17:14)
[2020-09-14] MEDS ORDERED: traZODone 50 MG Tab PO SCH (21:00)
[2020-09-14] MEDS ORDERED: INSULIN DEGLUDEC 100 UNIT/ML SUBCUT SCH (21:00)
[2020-09-14] MEDS ORDERED: PRAVASTATIN 80 MG PO SCH (21:00)
[2020-09-14] MEDS ORDERED: Calcitriol 0.25 MCG Cap PO SCH (21:00)
[2020-09-14] MEDS: HYDRALAZINE 25 MG PO SCH (22:06)
[2020-09-14] MEDS: TERAZOSIN 10 MG PO SCH (22:16)
[2020-09-15 07:07] LABS: ANION GAP 8.3 mEq/L (7-13)
[2020-09-15] MEDS ORDERED: HYDRALAZINE 25 MG PO SCH (08:00)
[2020-09-15] MEDS: Spironolactone 25 MG Tab PO SCH (08:47)
[2020-09-15] MEDS: CARVEDILOL 3.125 MG PO SCH (08:50)
[2020-09-15] MEDS: TERAZOSIN 10 MG PO SCH (08:52)
[2020-09-15] MEDS ORDERED: Multivitamins, Therapeutic with Minerals Tab PO SCH (09:00)
[2020-09-15] MEDS: Ampicillin/Sulbactam Na 3 GM in Sodium Chloride 0.9% 100 ML IV SCH (09:23)
--- NOTE | 2020-09-15 10:08 | PCM.DCSUM1 ---
Discharge Summary - Hospital Course Free Text/Narrative:: As the rounding team approach Angely this morning, she proclaimed "I am ready to go home". She is feeling much better, feels like she can do more for activities without as much shortness of breath. She unfortunately has not been tolerating the lymphedema wraps that we have been trying to do here, she told us in no uncertain terms that she is okay with going back to her compression socks that she was wearing at home. - Discharge Data Discharge Date: 09/15/20 Discharge Disposition: Home, Self-Care 01 Condition: Good - Referral to Home Health Primary Care Physician: Liv Leija NP - Discharge Diagnosis/Problem(s) (1) Cellulitis SNOMED Code(s): 715930301 ICD Code: L03.90 - CELLULITIS, UNSPECIFIED Status: Acute Priority: High Current Visit: Yes Qualifiers: Site of cellulitis of extremity: lower extremity Laterality: right (2) Congestive heart failure SNOMED Code(s): 16263795 ICD Code: I50.9 - HEART FAILURE, UNSPECIFIED Status: Chronic Priority: High Current Visit: No Qualifiers: Heart failure type: unspecified Heart failure chronicity: acute on chronic Qualified Code(s): I50.9 - Heart failure, unspecified (3) Lower extremity edema SNOMED Code(s): 045081244 ICD Code: R60.0 - LOCALIZED EDEMA Status: Chronic Current Visit: Yes Problem Details: Bilateral lower extremity edema with stasis dermatitis - Patient Summary/Data Consults: Consultations 09/14/20 11:15 OT Evaluation and Treatment [CONS] Routine - Discharge Plan *PRESCRIPTION DRUG MONITORING PROGRAM REVIEWED*: Not Applicable *COPY OF PRESCRIPTION DRUG MONITORING REPORT IN PATIENT SUSHMA: Not Applicable Prescriptions/Med Rec: Spironolactone [Aldactone] 12.5 mg PO BID 30 Days #60 tablet cephALEXin [Cephalexin] 500 mg PO TID 7 Days #21 capsule Torsemide 20 mg PO DAILY 30 Days #30 tablet Home Medications: Home Meds Acetaminophen [Acetaminophen Extra Strength] 1,000 mg PO BID PRN 03/13/20 [History] Cholecalciferol (Vitamin D3) [Vitamin D3] 400 unit PO 1200 03/13/20 [History] Clopidogrel Bisulfate [Clopidogrel] 75 mg PO DAILY 03/13/20 [History] Insulin Degludec [Tresiba] 55 unit SQ BEDTIME 03/13/20 [History] Potassium Chloride [Klor-Con 10] 10 meq PO BID 03/13/20 [History] Terazosin HCl [Terazosin] 10 mg PO BID 03/13/20 [History] Warfarin [Coumadin] 5 mg PO .BARRERA,TU,WE,FR,SA 03/13/20 [History] diphenhydrAMINE [Benadryl] 25 mg PO BEDTIME 03/13/20 [History] carvediloL [Carvedilol] 3.125 mg PO BID 90 Days #60 tablet 03/21/20 [Rx] Benzonatate 200 mg PO TID PRN 09/13/20 [History] Insulin Aspart [NovoLOG] 17 units SUBCUT TIDAC 09/13/20 [History] Multivitamin with Minerals [Multivitamins with Minerals] 1 tab PO DAILY 09/13/20 [History] Pravastatin Sodium 80 mg PO BEDTIME 09/13/20 [History] calcitrioL [Calcitriol] 0.5 mcg PO BEDTIME 09/13/20 [History] hydrALAZINE [Apresoline] 25 mg PO BID@1200,2100 09/13/20 [History] hydrALAZINE [Apresoline] 50 mg PO WITHBREAKFAST 09/13/20 [History] traZODone 50 mg PO BEDTIME 09/13/20 [History] Spironolactone [Aldactone] 12.5 mg PO BID 30 Days #60 tablet 09/15/20 [Rx] Torsemide 20 mg PO DAILY 30 Days #30 tablet 09/15/20 [Rx] cephALEXin [Cephalexin] 500 mg PO TID 7 Days #21 capsule 09/15/20 [Rx] Patient Handouts: Furosemide Oral Tablets, Heart Failure, Self Care, [id number], Spironolactone Oral Tablets, Cellulitis, Adult, [id number], Cephalexin Tablets or Capsules, Living With Heart Failure - Discharge Summary/Plan Comment DC Time >30 min.: No Discharge Summary/Plan Comment: Discharge diagnoses: 1. 74-year-old woman with chronic congestive heart failure and resulting chronic lower extremity edema 2. Stasis dermatitis secondary to #1 3. Right lower leg cellulitis secondary to #1 and #2, resolving 4. Type 2 diabetes mellitus, requiring insulin Discharge plan: 1. She will be sent home today on oral Keflex, 500 mg 3 times a day x7 days 2. The bumetanide was not working well for her at home, and has been reports that she is tried furosemide in the past also with little success, so we will switch her to torsemide, 20 mg daily 3. Angely has had home health in the past, but has not received that in quite some time. In my medical opinion, she is requiring of home health for medication management, help with activities of daily living, and help with care of her lower extremities due to that chronic lower extremity edema. - Patient Data Vitals - Most Recent: Last Vital Signs Temp 97.4 F 09/15/20 08:00 Pulse 90 09/15/20 08:50 Resp 16 09/15/20 08:00 BP 171/76 H 09/15/20 08:50 Pulse Ox 95 09/15/20 08:00 Weight - Most Recent: 274 lb 9.6 oz I&O - Last 24 hours: Intake & Output 09/14/20 09/15/20 09/15/20 22:59 06:59 14:59 Intake Total 1191 360 Output Total 1400 Balance -209 360 Lab Results - Last 24 hrs: Laboratory Results - last 24 hr 09/14/20 09/14/20 09/15/20 Range/Units 11:45 16:39 06:33 PT 24.7 H (9.0-12.0) SEC INR 2.5 H (0.9-1.2) Sodium (136-145) mmol/L Potassium (3.5-5.1) mmol/L Chloride (98-107) mmol/L Carbon Dioxide (21-32) mmol/L Anion Gap (7-13) mEq/L BUN (7-18) mg/dL Creatinine (0.55-1.02) mg/dL Est Cr Clr Drug Dosing mL/min Estimated GFR (MDRD) BUN/Creatinine Ratio (No establ ref range) Glucose (70-99) mg/dL POC Glucose 175 H 157 H (70-99) mg/dL Calcium (8.5-10.1) mg/dL Total Bilirubin (0.2-1.0) mg/dL AST (15-37) U/L ALT (14-59) U/L Alkaline Phosphatase (46-116) U/L B-Natriuretic Peptide (0-100) pg/ml Total Protein (6.4-8.2) g/dL Albumin (3.4-5.0) g/dL Globulin Albumin/Globulin Ratio 09/15/20 Range/Units 06:33 PT (9.0-12.0) SEC INR (0.9-1.2) Sodium 146 H (136-145) mmol/L Potassium 4.3 (3.5-5.1) mmol/L Chloride 107 (98-107) mmol/L Carbon Dioxide 35 H (21-32) mmol/L Anion Gap 8.3 (7-13) mEq/L BUN 22 H (7-18) mg/dL Creatinine 1.51 H (0.55-1.02) mg/dL Est Cr Clr Drug Dosing 24.29 mL/min Estimated GFR (MDRD) 34 BUN/Creatinine Ratio 14.6 (No establ ref range) Glucose 73 (70-99) mg/dL POC Glucose (70-99) mg/dL Calcium 8.8 (8.5-10.1) mg/dL Total Bilirubin 0.9 (0.2-1.0) mg/dL AST 34 (15-37) U/L ALT 33 (14-59) U/L Alkaline Phosphatase 53 (46-116) U/L B-Natriuretic Peptide 438 H (0-100) pg/ml Total Protein 6.0 L (6.4-8.2) g/dL Albumin 3.2 L (3.4-5.0) g/dL Globulin 2.8 Albumin/Globulin Ratio 1.14 Med Orders - Current: Current Medications Acetaminophen (Acetaminophen 325 Mg Tab) 650 mg PO Q4H PRN PRN Reason: Pain (Mild 1-3)/fever Last Admin: 09/14/20 10:35 Dose: 650 mg Documented by: Calcitriol (Calcitriol 0.25 Mcg Cap Pt Own Meds) 0.5 mcg PO BEDTIME [facility] Last Admin: 09/14/20 22:26 Dose: 0.5 mcg Documented by: Carvedilol (Carvedilol 3.125 Mg Tab Pt Own Med) 3.125 mg PO 0800,1800 [facility] Last Admin: 09/15/20 08:50 Dose: 3.125 mg Documented by: Cholecalciferol (Cholecalciferol (Vitamin D3) 10 Mcg Tab) 10 mcg PO DAILY@1200 [facility] Last Admin: 09/14/20 12:17 Dose: 10 mcg Documented by: Clopidogrel Bisulfate (Clopidogrel 75 Mg Tab Pt Own Med) 75 mg PO DAILY [facility] Last Admin: 09/15/20 08:50 Dose: 75 mg Documented by: Diphenhydramine HCl (Diphenhydramine 25 Mg Tab) 25 mg PO BEDTIME [facility] Last Admin: 09/14/20 21:47 Dose: 25 mg Documented by: Hydralazine HCl (Hydralazine 25 Mg Tab Pt Own Med) 50 mg PO WITHBREAKFAST [facility] Last Admin: 09/15/20 08:49 Dose: 50 mg Documented by: Hydralazine HCl (Hydralazine 25 Mg Tab Pt Own Med) 25 mg PO BID@1200,2100 [facility] Last Admin: 09/14/20 22:06 Dose: 25 mg Documented by: Ampicillin Sodium/Sulbactam (Sodium 3 gm/ Sodium Chloride) 100 mls @ 100 mls/hr IV Q12HR [facility] Last Admin: 09/15/20 09:23 Dose: 100 mls/hr Documented by: Insulin Human Lispro (Insulin Lispro 100 Units/Ml 3 Ml Vial) 17 unit SUBCUT TIDMEALS [facility] Last Admin: 09/14/20 17:14 Dose: 17 units Documented by: Multivitamins/Minerals (Multivitamins, Therapeutic With Minerals Tab) 1 tab PO DAILY [facility] Last Admin: 09/15/20 08:47 Dose: 1 tab Documented by: Olanzapine (Olanzapine 5 Mg Tab) 5 mg PO Q12H PRN PRN Reason: Anxiety Last Admin: 09/14/20 23:26 Dose: 5 mg Documented by: Ondansetron HCl (Ondansetron 4 Mg Tab.Dis) 4 mg PO Q6H PRN PRN Reason: nausea, able to take PO Insulin Degludec [ Tresiba] 100 Unit/Ml Vial Pt Own Med 0 each SUBCUT BEDTIME [facility] Last Admin: 09/14/20 22:31 Dose: 1 each Documented by: Warfarin 4 Mg Tab (Pt Own Med) 0 each PO MoTh@1400 [facility] Pravastatin 80 Mg (Tab Pt Own Med) 0 each PO BEDTIME [facility] Last Admin: 09/14/20 22:15 Dose: 1 each Documented by: Terazosin 10 Mg Cap (Pt Own Med) 0 each PO BID [facility] Last Admin: 09/15/20 08:52 Dose: 1 each Documented by: Spironolactone (Spironolactone 25 Mg Tab) 12.5 mg PO BID [facility] Last Admin: 09/15/20 08:47 Dose: 12.5 mg Documented by: Trazodone HCl (Trazodone 50 Mg Tab) 50 mg PO BEDTIME [facility] Last Admin: 09/14/20 21:48 Dose: 50 mg Documented by: Warfarin Sodium (Warfarin 5 Mg Tab Pt Own Med) 5 mg PO SuTuWeFrSa@1400 [facility] Last Admin: 09/14/20 14:16 Dose: 5 mg Documented by: Discontinued Medications Acetaminophen (Acetaminophen 500 Mg Tab) 1,000 mg PO BID PRN PRN Reason: Pain (mild 1-3) Last Admin: 09/13/20 19:22 Dose: 1,000 mg Documented by: Calcitriol (Calcitriol 0.25 Mcg Cap) 0.5 mcg PO BEDTIME [facility] Last Admin: 09/13/20 20:58 Dose: 0.5 mcg Documented by: Carvedilol (Carvedilol 3.125 Mg Tab) 3.125 mg PO BID [facility] Last Admin: 09/13/20 20:59 Dose: 3.125 mg Documented by: Carvedilol (Carvedilol 3.125 Mg Tab) 3.125 mg PO 0800,1800 [facility] Last Admin: 09/14/20 08:19 Dose: 3.125 mg Documented by: Clopidogrel Bisulfate (Clopidogrel 75 Mg Tab) 75 mg PO DAILY [facility] Last Admin: 09/14/20 08:18 Dose: 75 mg Documented by: Furosemide (Furosemide 40 Mg/4 Ml Vial) 40 mg IVPUSH NOW ONE Stop: 09/14/20 13:58 Last Admin: 09/14/20 14:16 Dose: 40 mg Documented by: Hydralazine HCl (Hydralazine 25 Mg Tab) 25 mg PO TID [facility] Last Admin: 09/14/20 00:42 Dose: Not Given Documented by: Hydralazine HCl (Hydralazine 25 Mg Tab) 25 mg PO BID@1200,2100 [facility] Last Admin: 09/14/20 12:17 Dose: 25 mg Documented by: Albumin Human (Flexbumin 25%) 12.5 gm in 50 mls @ 100 mls/hr IV ONETIME ONE Stop: 09/13/20 14:29 Last Admin: 09/13/20 15:52 Dose: 100 mls/hr Documented by: Lorazepam (Lorazepam 1 Mg Tab) 2 mg PO ONETIME ONE Stop: 09/13/20 20:03 Last Admin: 09/14/20 00:41 Dose: Not Given Documented by: Pravastatin Sodium (Pravastatin 20 Mg Tab) 80 mg PO BEDTIME [facility] Last Admin: 09/13/20 20:58 Dose: 80 mg Documented by: Terazosin HCl (Terazosin 5 Mg Cap) 10 mg PO BID [facility] Last Admin: 09/14/20 08:20 Dose: 10 mg Documented by: Warfarin Sodium (Warfarin 5 Mg Tab) 5 mg PO TuThSa@1400 [facility] Last Admin: 09/13/20 16:01 Dose: Not Given Documented by:
[2020-09-15] MEDS: Insulin Lispro 100 Units/ML 3 ML Vial SUBCUT SCH (10:13)
[2020-09-15 12:43] VITALS: PULSE 89
[2020-09-15] MEDS: HYDRALAZINE 25 MG PO SCH (13:25)
[2020-09-15 13:27] VITALS: BP 168/68
--- NOTE | 2020-09-15 13:29 | PCM.PN ---
- General Info Date of Service: 09/14/20 Admission Dx/Problem (Free Text): Admission Diagnosis/Problem Admission Diagnosis/Problem Cellulitis Subjective Update: Angely is doing better this morning. Therapy was able to wrap her legs last night, unfortunately she only allowed nursing to leave those wraps on for about an hour or 2 before she complained of pain with them. For more of the story that we have now gotten, she is not tolerating wraps or stockings on her legs much at all, even at home. Nursing reports that the weeping has stopped this morning. She reports that she can breathe a little bit better today, reviewing her chart, she did not have a lot of net urine output last night and this morning. - Patient Data Vitals - Most Recent: Last Vital Signs Temp 97 F 09/15/20 12:00 Pulse 89 09/15/20 12:00 Resp 20 09/15/20 12:00 BP 147/82 H 09/15/20 12:00 Pulse Ox 91 L 09/15/20 12:00 Weight - Most Recent: 274 lb 9.6 oz I&O - Last 24 Hours: Intake & Output 09/14/20 09/15/20 09/15/20 22:59 06:59 14:59 Intake Total 1191 360 Output Total 1400 Balance -209 360 Lab Results Last 24 Hours: Laboratory Results - last 24 hr 09/14/20 09/15/20 09/15/20 Range/Units 16:39 06:33 06:33 PT 24.7 H (9.0-12.0) SEC INR 2.5 H (0.9-1.2) Sodium 146 H (136-145) mmol/L Potassium 4.3 (3.5-5.1) mmol/L Chloride 107 (98-107) mmol/L Carbon Dioxide 35 H (21-32) mmol/L Anion Gap 8.3 (7-13) mEq/L BUN 22 H (7-18) mg/dL Creatinine 1.51 H (0.55-1.02) mg/dL Est Cr Clr Drug Dosing 24.29 mL/min Estimated GFR (MDRD) 34 BUN/Creatinine Ratio 14.6 (No establ ref range) Glucose 73 (70-99) mg/dL POC Glucose 157 H (70-99) mg/dL Calcium 8.8 (8.5-10.1) mg/dL Total Bilirubin 0.9 (0.2-1.0) mg/dL AST 34 (15-37) U/L ALT 33 (14-59) U/L Alkaline Phosphatase 53 (46-116) U/L B-Natriuretic Peptide 438 H (0-100) pg/ml Total Protein 6.0 L (6.4-8.2) g/dL Albumin 3.2 L (3.4-5.0) g/dL Globulin 2.8 Albumin/Globulin Ratio 1.14 Med Orders - Current: Current Medications Acetaminophen (Acetaminophen 325 Mg Tab) 650 mg PO Q4H PRN PRN Reason: Pain (Mild 1-3)/fever Last Admin: 09/14/20 10:35 Dose: 650 mg Documented by: Calcitriol (Calcitriol 0.25 Mcg Cap Pt Own Meds) 0.5 mcg PO BEDTIME [facility] Last Admin: 09/14/20 22:26 Dose: 0.5 mcg Documented by: Carvedilol (Carvedilol 3.125 Mg Tab Pt Own Med) 3.125 mg PO 0800,1800 [facility] Last Admin: 09/15/20 08:50 Dose: 3.125 mg Documented by: Cholecalciferol (Cholecalciferol (Vitamin D3) 10 Mcg Tab) 10 mcg PO DAILY@1200 [facility] Last Admin: 09/14/20 12:17 Dose: 10 mcg Documented by: Clopidogrel Bisulfate (Clopidogrel 75 Mg Tab Pt Own Med) 75 mg PO DAILY [facility] Last Admin: 09/15/20 08:50 Dose: 75 mg Documented by: Diphenhydramine HCl (Diphenhydramine 25 Mg Tab) 25 mg PO BEDTIME [facility] Last Admin: 09/14/20 21:47 Dose: 25 mg Documented by: Hydralazine HCl (Hydralazine 25 Mg Tab Pt Own Med) 50 mg PO WITHBREAKFAST [facility] Last Admin: 09/15/20 08:49 Dose: 50 mg Documented by: Hydralazine HCl (Hydralazine 25 Mg Tab Pt Own Med) 25 mg PO BID@1200,2100 [facility] Last Admin: 09/14/20 22:06 Dose: 25 mg Documented by: Ampicillin Sodium/Sulbactam (Sodium 3 gm/ Sodium Chloride) 100 mls @ 100 mls/hr IV Q12HR [facility] Last Admin: 09/15/20 09:23 Dose: 100 mls/hr Documented by: Insulin Human Lispro (Insulin Lispro 100 Units/Ml 3 Ml Vial) 17 unit SUBCUT TIDMEALS [facility] Last Admin: 09/15/20 10:13 Dose: Not Given Documented by: Multivitamins/Minerals (Multivitamins, Therapeutic With Minerals Tab) 1 tab PO DAILY [facility] Last Admin: 09/15/20 08:47 Dose: 1 tab Documented by: Olanzapine (Olanzapine 5 Mg Tab) 5 mg PO Q12H PRN PRN Reason: Anxiety Last Admin: 09/14/20 23:26 Dose: 5 mg Documented by: Ondansetron HCl (Ondansetron 4 Mg Tab.Dis) 4 mg PO Q6H PRN PRN Reason: nausea, able to take PO Insulin Degludec [ Tresiba] 100 Unit/Ml Vial Pt Own Med 0 each SUBCUT BEDTIME [facility] Last Admin: 09/14/20 22:31 Dose: 1 each Documented by: Warfarin 4 Mg Tab (Pt Own Med) 0 each PO MoTh@1400 [facility] Pravastatin 80 Mg (Tab Pt Own Med) 0 each PO BEDTIME [facility] Last Admin: 09/14/20 22:15 Dose: 1 each Documented by: Terazosin 10 Mg Cap (Pt Own Med) 0 each PO BID [facility] Last Admin: 09/15/20 08:52 Dose: 1 each Documented by: Spironolactone (Spironolactone 25 Mg Tab) 12.5 mg PO BID [facility] Last Admin: 09/15/20 08:47 Dose: 12.5 mg Documented by: Trazodone HCl (Trazodone 50 Mg Tab) 50 mg PO BEDTIME [facility] Last Admin: 09/14/20 21:48 Dose: 50 mg Documented by: Warfarin Sodium (Warfarin 5 Mg Tab Pt Own Med) 5 mg PO SuTuWeFrSa@1400 [facility] Last Admin: 09/14/20 14:16 Dose: 5 mg Documented by: Discontinued Medications Acetaminophen (Acetaminophen 500 Mg Tab) 1,000 mg PO BID PRN PRN Reason: Pain (mild 1-3) Last Admin: 09/13/20 19:22 Dose: 1,000 mg Documented by: Calcitriol (Calcitriol 0.25 Mcg Cap) 0.5 mcg PO BEDTIME [facility] Last Admin: 09/13/20 20:58 Dose: 0.5 mcg Documented by: Carvedilol (Carvedilol 3.125 Mg Tab) 3.125 mg PO BID [facility] Last Admin: 09/13/20 20:59 Dose: 3.125 mg Documented by: Carvedilol (Carvedilol 3.125 Mg Tab) 3.125 mg PO 0800,1800 [facility] Last Admin: 09/14/20 08:19 Dose: 3.125 mg Documented by: Clopidogrel Bisulfate (Clopidogrel 75 Mg Tab) 75 mg PO DAILY [facility] Last Admin: 09/14/20 08:18 Dose: 75 mg Documented by: Furosemide (Furosemide 40 Mg/4 Ml Vial) 40 mg IVPUSH NOW ONE Stop: 09/14/20 13:58 Last Admin: 09/14/20 14:16 Dose: 40 mg Documented by: Hydralazine HCl (Hydralazine 25 Mg Tab) 25 mg PO TID [facility] Last Admin: 09/14/20 00:42 Dose: Not Given Documented by: Hydralazine HCl (Hydralazine 25 Mg Tab) 25 mg PO BID@1200,2100 [facility] Last Admin: 09/14/20 12:17 Dose: 25 mg Documented by: Albumin Human (Flexbumin 25%) 12.5 gm in 50 mls @ 100 mls/hr IV ONETIME ONE Stop: 09/13/20 14:29 Last Admin: 09/13/20 15:52 Dose: 100 mls/hr Documented by: Lorazepam (Lorazepam 1 Mg Tab) 2 mg PO ONETIME ONE Stop: 09/13/20 20:03 Last Admin: 09/14/20 00:41 Dose: Not Given Documented by: Pravastatin Sodium (Pravastatin 20 Mg Tab) 80 mg PO BEDTIME [facility] Last Admin: 09/13/20 20:58 Dose: 80 mg Documented by: Terazosin HCl (Terazosin 5 Mg Cap) 10 mg PO BID [facility] Last Admin: 09/14/20 08:20 Dose: 10 mg Documented by: Warfarin Sodium (Warfarin 5 Mg Tab) 5 mg PO TuThSa@1400 [facility] Last Admin: 09/13/20 16:01 Dose: Not Given Documented by: - Exam Physical Findings Comments:: General: Angely is a 74-year-old woman in no acute distress Oropharynx is clear, mucous membranes are moist Heart: Regular rate and rhythm, 1 out of 6 to 2 out of 6 systolic murmur heard over the left sternal border Lungs: Fairly clear to auscultation throughout, better air movement than compared to yesterday Lower extremities: I see no further weeping from her lower legs today. The erythema does seem to be quite improved. - Patient Data Lab Results Last 24 hrs: Laboratory Results - last 24 hr 09/14/20 09/15/20 09/15/20 Range/Units 16:39 06:33 06:33 PT 24.7 H (9.0-12.0) SEC INR 2.5 H (0.9-1.2) Sodium 146 H (136-145) mmol/L Potassium 4.3 (3.5-5.1) mmol/L Chloride 107 (98-107) mmol/L Carbon Dioxide 35 H (21-32) mmol/L Anion Gap 8.3 (7-13) mEq/L BUN 22 H (7-18) mg/dL Creatinine 1.51 H (0.55-1.02) mg/dL Est Cr Clr Drug Dosing 24.29 mL/min Estimated GFR (MDRD) 34 BUN/Creatinine Ratio 14.6 (No establ ref range) Glucose 73 (70-99) mg/dL POC Glucose 157 H (70-99) mg/dL Calcium 8.8 (8.5-10.1) mg/dL Total Bilirubin 0.9 (0.2-1.0) mg/dL AST 34 (15-37) U/L ALT 33 (14-59) U/L Alkaline Phosphatase 53 (46-116) U/L B-Natriuretic Peptide 438 H (0-100) pg/ml Total Protein 6.0 L (6.4-8.2) g/dL Albumin 3.2 L (3.4-5.0) g/dL Globulin 2.8 Albumin/Globulin Ratio 1.14 Result Diagrams: 09/15/20 06:33 Sepsis Event Note - Evaluation Sepsis Screening Result: No Definite Risk - Focused Exam Vital Signs: Vital Signs Temp Pulse Pulse Resp BP BP BP 09/15/20 12:00 97 F 89 20 147/82 H 09/15/20 08:50 90 171/76 H 09/15/20 08:49 171/76 H 09/15/20 08:00 97.4 F 90 16 171/76 H 09/15/20 05:51 96.8 F L 76 20 BP Pulse Ox 09/15/20 12:00 91 L 09/15/20 08:50 09/15/20 08:49 09/15/20 08:00 95 09/15/20 05:51 148/92 H 92 L - Problem List & Annotations (1) Cellulitis SNOMED Code(s): 643531224 Code(s): L03.90 - CELLULITIS, UNSPECIFIED Status: Acute Priority: High Current Visit: Yes Qualifiers: Site of cellulitis of extremity: lower extremity Laterality: right (2) Congestive heart failure SNOMED Code(s): 99325840 Code(s): I50.9 - HEART FAILURE, UNSPECIFIED Status: Chronic Priority: High Current Visit: No Qualifiers: Heart failure type: unspecified Heart failure chronicity: acute on chronic Qualified Code(s): I50.9 - Heart failure, unspecified (3) Lower extremity edema SNOMED Code(s): 958676842 Code(s): R60.0 - LOCALIZED EDEMA Status: Chronic Current Visit: Yes Annotation/Comment:: Bilateral lower extremity edema with stasis dermatitis - Problem List Review Problem List Initiated/Reviewed/Updated: Yes - My Orders Last 24 Hours: My Active Orders 09/14/20 12:40 calcitrioL [Rocaltrol] 0.5 mcg PO BEDTIME 09/14/20 12:47 carvediloL [Coreg] 3.125 mg PO 0800,1800 09/14/20 12:51 Clopidogrel [Plavix] 75 mg PO DAILY 09/14/20 14:00 Warfarin [Coumadin] 5 mg PO SuTuWeFrSa@1400 09/14/20 21:00 Patient's Own Medication [Ptom] 0 each PO BEDTIME Patient's Own Medication [Ptom] 0 each PO BID Patient's Own Medication [Ptom] 0 each SUBCUT BEDTIME hydrALAZINE [Apresoline] 25 mg PO BID@1200,2100 traZODone 50 mg PO BEDTIME 09/15/20 08:00 hydrALAZINE [Apresoline] 50 mg PO WITHBREAKFAST 09/15/20 09:00 Multivitamins/Minerals [Vitamins and Minerals] 1 tab PO DAILY 09/15/20 10:10 Ready for Discharge [RC] PER UNIT ROUTINE 09/15/20 14:00 Patient's Own Medication [Ptom] 0 each PO MoTh@1400 - Plan Plan:: Assessment: 1. 74-year-old woman with severe acute on chronic combined systolic and diastolic congestive heart failure 2. Severe bilateral lower extremity edema, chronic, with stasis dermatitis 3. Cellulitis of the right lower extremity secondary to #2 Plan: 1. Continue Unasyn IV 2. We will give furosemide, 40 mg IV x1 today and see if this provides any diuresis 3. Continue other home medications as she has been taking them 4. Nursing will try to encourage her to continue keeping her legs wrapped with the actual wraps as therapy has put them on, which I think will help significantly with her stasis dermatitis in her lower extremity edema
[2020-09-15] MEDS ORDERED: WARFARIN 4 MG PO SCH (14:00)
== END 2020-09-15 13:30 | disposition home or self-care (01) ==
LOC: UNDOADMOB 13:30 → DL.MS 13:30
PROVIDERS: ADMIT Family Medicine; ATTEND Family Medicine
DX: L03.90 Cellulitis, unspecified (principal); R60.0 Localized edema; I13.0 Hypertensive heart and chronic kidney disease with heart failure and stage 1 through stage 4 chronic kidney disease, or unspecified chronic kidney disease; I50.9 Heart failure, unspecified; E11.22 Type 2 diabetes mellitus with diabetic chronic kidney disease; N18.30 Chronic kidney disease, stage 3 unspecified; I87.2 Venous insufficiency (chronic) (peripheral); E66.9 Obesity, unspecified; Z79.01 Long term (current) use of anticoagulants; Z79.890 Hormone replacement therapy; Z79.899 Other long term (current) drug therapy; Z88.6 Allergy status to analgesic agent; Z88.8 Allergy status to other drugs, medicaments and biological substances
CPT/HCPCS: 36415; 71046; 80053; 82947; 83880; 84484; 85610; 93005; 96365; 96366; 96367; 96375; 97165; A9270; G0378; G0379; J0295; J1815; J1940; P9047

== ENCOUNTER 2020-10-17 21:33 | Inpatient (IN) | payer MEDICARE, OTHER ==
[2020-10-17 22:29] LABS: ANION GAP 10.8 mEq/L (7-13)
--- NOTE | 2020-10-17 22:29 | CR ---
PROCEDURE INFORMATION: Exam: XR Chest Exam date and time: 10/17/2020 10:11 PM Age: 74 years old Clinical indication: Other: Chf, edema; Additional info: Chf edema SOB TECHNIQUE: Imaging protocol: XR of the chest. Views: 1 view. Total images: 1 COMPARISON: CR Chest 2V 09/14/2020 7:30 AM FINDINGS: Lungs: The lung volumes are low. Mild central pulmonary venous congestion. Minimal patchy opacity at the lung bases. Pleural spaces: Unremarkable. No pleural effusion. No pneumothorax. Heart/Mediastinum: Moderate enlargement of the cardiopericardial silhouette. Bones/joints: Unremarkable. IMPRESSION: 1. Low lung volumes with minimal patchy basilar atelectasis and or minimal infiltrate. 2. Enlarged cardiopericardial silhouette.
[2020-10-17] MEDS ORDERED: Ampicillin/Sulbactam Na 3 GM in Sodium Chloride 0.9% 100 ML IV ONE (23:02)
[2020-10-17] MEDS ORDERED: Acetaminophen 325 MG Tab PO ONE (23:10)
--- NOTE | 2020-10-17 23:16 | EDM.PDOC ---
ED HPI GENERAL MEDICAL PROBLEM - General Chief Complaint: Cardiovascular Problem Stated Complaint: FLUID BUILD UP ON LEGS Time Seen by Provider: 10/17/20 22:20 Source of Information: Reports: Patient, Family History Limitations: Reports: No Limitations - History of Present Illness INITIAL COMMENTS - FREE TEXT/NARRATIVE: ED with c/o swelling lower legs, right calf purple painful. Sore on top of left foot more red tonight. No chest pain, No fever, SOB, Saw kidney specialist last week, no med changes, scheduled to see again this week, Does not weigh daily at home. In hospital in August for same. Blood sugars at home 120-140. - Related Data Allergies Allergy/AdvReac Type Severity Reaction Status Date / Time metformin Allergy Unknown Diarrhea Verified 10/18/20 00:42 zinc Allergy Unknown UNKNOWN Verified 10/18/20 00:42 amlodipine [From Lotrel] Allergy Other Verified 10/18/20 00:42 benazepril [From Lotrel] Allergy Other Verified 10/18/20 00:42 clonidine Allergy Itching Verified 10/18/20 00:42 codeine Allergy Other Verified 10/18/20 00:42 fosinopril [From Monopril] Allergy Other Verified 10/18/20 00:42 hydrocodone [From Gurdon] Allergy Hyperactivi Verified 10/18/20 00:42 ty irbesartan [From Avapro] Allergy Other Verified 10/18/20 00:42 lorazepam [From Ativan] Allergy Hyperactivi Verified 10/18/20 00:42 ty metolazone Allergy Rash Verified 10/18/20 00:42 ramipril [From Altace] Allergy Other Verified 10/18/20 00:42 verapamil [From Verelan] Allergy Other Verified 10/18/20 00:42 Home Meds: Home Meds Acetaminophen [Acetaminophen Extra Strength] 1,000 mg PO BID PRN 03/13/20 [History] Cholecalciferol (Vitamin D3) [Vitamin D3] 400 unit PO WITHLUNCH 03/13/20 [History] Clopidogrel Bisulfate [Clopidogrel] 75 mg PO DAILY 03/13/20 [History] Insulin Degludec [Tresiba] 55 unit SQ BEDTIME 03/13/20 [History] Potassium Chloride [Klor-Con 10] 10 meq PO BIDMEALS 03/13/20 [History] Terazosin HCl [Terazosin] 10 mg PO BID 10/25/20 [History] Warfarin [Coumadin] 5 mg PO .MOFR 03/13/20 [History] diphenhydrAMINE [Benadryl] 25 mg PO BEDTIME 03/13/20 [History] carvediloL [Carvedilol] 3.125 mg PO BID 90 Days #60 tablet 03/21/20 [Rx] Benzonatate 200 mg PO TID PRN 09/13/20 [History] Insulin Aspart [NovoLOG] 17 units SUBCUT TIDAC 09/13/20 [History] Multivitamin with Minerals [Multivitamins with Minerals] 1 tab PO DAILY 09/13/20 [History] Pravastatin Sodium 80 mg PO BEDTIME 09/13/20 [History] calcitrioL [Calcitriol] 0.5 mcg PO BEDTIME 09/13/20 [History] hydrALAZINE [Apresoline] 25 mg PO BID@1200,2100 09/13/20 [History] hydrALAZINE [Apresoline] 50 mg PO WITHBREAKFAST 09/13/20 [History] Bumetanide 2 mg PO ASDIRECTED 10/18/20 [History] Spironolactone [Aldactone] 25 mg PO DAILY 10/18/20 [History] Warfarin Sodium [Jantoven] 4 mg PO .[id number] 10/18/20 [History] Past Medical History HEENT History: Reports: Cataract Cardiovascular History: Reports: Hypertension, Other (See Below) Other Cardiovascular History: systolic and diastolic CHF. 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 coronary artery disease involving nulato coronary artery of nulato heart without angina pectoris. essential hypertension carotid stenosis right. 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 - Infectious Disease History Infectious Disease History: Reports: Chicken Pox - Past Surgical History Neurological Surgical History: Reports: None Social & Family History - Family History Family Medical History: No Pertinent Family History - Tobacco Use Tobacco Use Status *Q: Never Tobacco User - Caffeine Use Caffeine Use: Reports: Coffee - Recreational Drug Use Recreational Drug Use: No ED ROS GENERAL - Review of Systems Review Of Systems: See Below ED EXAM, GENERAL - Physical Exam Exam: See Below Exam Limited By: No Limitations General Appearance: Alert, Mild Distress, Obese Eye Exam: Bilateral Eye: EOMI, PERRL Ears: Normal External Exam Nose: Normal Inspection Throat/Mouth: Normal Inspection Head: Atraumatic, Normocephalic Respiratory/Chest: Decreased Breath Sounds Cardiovascular: Normal Peripheral Pulses, Regular Rate, Rhythm, No JVD. No: No Edema GI/Abdominal: Normal Bowel Sounds Extremities: Pedal Edema (3-=+ to knees, weeping, greater left lower Superficial ulcer top of left foot) Neurological: Alert, Oriented, Normal Cognition, Normal Gait (transfer with walker) Skin Exam: Erythema (bilateral calves, right foot), Wound/Incision (top of left foot, ) #1 Interpretation EKG Date: 10/17/20 Time: 22:12 Rhythm: NSR Rate (Beats/Min): 99 Duff: Normal P-Wave: Present QT: Shortened Comparison: No Change EKG Interpretation Comments: Sinus, LBB, LVH Course - Vital Signs Last Recorded V/S: Last Vital Signs Temp 97.1 F 10/17/20 22:03 Pulse 97 10/17/20 22:26 Resp 20 10/17/20 22:26 BP 112/52 L 10/17/20 22:26 Pulse Ox 96 10/17/20 22:26 - Orders/Labs/Meds Orders: Active Orders 24 hr Category Date Time Status EKG 12 Lead [EKG Documentation Completion] [RC] URGENT Care 10/17/20 22:04 Active CULTURE BLOOD [BC] Stat Lab 10/17/20 21:50 Results CULTURE BLOOD [BC] Stat Lab 10/17/20 22:00 Received CULTURE URINE [RM] Stat Lab 10/18/20 01:19 Received CULTURE WOUND [RM] Stat Lab 10/17/20 22:18 Received Blood Culture x2 Reflex Set [OM.PC] Stat Oth 10/17/20 22:15 Ordered Medication Orders Acetaminophen (Acetaminophen 325 Mg Tab) 650 mg PO Q4H PRN PRN Reason: Pain (Mild 1-3)/fever Last Admin: 10/18/20 03:10 Dose: 650 mg Documented by: [id number] Calcitriol (Calcitriol 0.25 Mcg Cap) 0.5 mcg PO BEDTIME COUNTS INCLUDE 234 BEDS AT [facility] Carvedilol (Carvedilol 3.125 Mg Tab) 3.125 mg PO BID COUNTS INCLUDE 234 BEDS AT [facility] Clopidogrel Bisulfate (Clopidogrel 75 Mg Tab) 75 mg PO DAILY COUNTS INCLUDE 234 BEDS AT [facility] Dextrose/Water (50% Dextrose In Water 50 Ml Syringe) 50 ml IV Q15M PRN PRN Reason: Hypoglycemia Diphenhydramine HCl (Diphenhydramine 25 Mg Tab) 25 mg PO BEDTIME COUNTS INCLUDE 234 BEDS AT [facility] Last Admin: 10/18/20 03:10 Dose: 25 mg Documented by: [id number] Furosemide (Furosemide 20 Mg/2 Ml Vial) 10 mg IVPUSH Q8H COUNTS INCLUDE 234 BEDS AT [facility] Last Admin: 10/18/20 02:37 Dose: 10 mg Documented by: [id number] Glucagon (Glucagon,Human Recombinant 1 Mg Vial) 1 mg IM Q15M PRN PRN Reason: Hypoglycemia Hydralazine HCl (Hydralazine 25 Mg Tab) 25 mg PO BID@1200,2100 COUNTS INCLUDE 234 BEDS AT [facility] Hydralazine HCl (Hydralazine 25 Mg Tab) 50 mg PO WITHBREAKFAST COUNTS INCLUDE 234 BEDS AT [facility] Albumin Human (Flexbumin 25%) 12.5 gm in 50 mls @ 100 mls/hr IV Q8H COUNTS INCLUDE 234 BEDS AT [facility] Last Admin: 10/18/20 02:37 Dose: 100 mls/hr Documented by: [id number] Piperacillin Sod/Tazobactam (Sod 2.25 gm/ Sodium Chloride) 50 mls @ 100 mls/hr IV Q8H COUNTS INCLUDE 234 BEDS AT [facility] Last Admin: 10/18/20 02:51 Dose: 100 mls/hr Documented by: [id number] Magnesium Sulfate/Dextrose (Magnesium Sulfate In D5w 1 Gm/100 Ml) 1 gm in 100 mls @ 100 mls/hr IV Q1H COUNTS INCLUDE 234 BEDS AT [facility] Stop: 10/18/20 05:14 Last Admin: 10/18/20 04:27 Dose: 100 mls/hr Documented by: [id number] Infusion: 10/18/20 04:25 Dose: 100 mls/hr Documented by: [id number] Admin: 10/18/20 03:25 Dose: 100 mls/hr Documented by: [id number] Insulin Glargine (Insulin Glarg,Human.Rec.Analog 100 Unit/Ml) 55 unit SUBCUT BEDTIME VALDO Insulin Human Lispro (Insulin Lispro 100 Units/Ml 3 Ml Vial) 0 unit SUBCUT WITHMEALSANDBED VALDO; Protocol Insulin Human Lispro (Insulin Lispro 100 Units/Ml 3 Ml Vial) 17 unit SUBCUT TIDMEALS VALDO Ondansetron HCl (Ondansetron 4 Mg/2 Ml Sdv) 4 mg IVPUSH Q4H PRN PRN Reason: Nausea/Vomiting Potassium Chloride (Potassium Chloride 10 Meq Tab.Er) 10 meq PO BIDMEALS VALDO Pravastatin Sodium (Pravastatin 20 Mg Tab) 80 mg PO BEDTIME VALDO Sodium Chloride (Sodium Chloride 0.9% 10 Ml Syringe) 10 ml FLUSH ASDIRECTED PRN PRN Reason: Keep Vein Open Terazosin HCl (Terazosin 5 Mg Cap) 10 mg PO BID VALDO Vancomycin HCl (Pharmacy To Dose - Vancomycin) 1 dose .XX ASDIRECTED COUNTS INCLUDE 234 BEDS AT THE [facility] Labs: Laboratory Tests 10/17/20 10/17/20 10/17/20 Range/Units 22:00 22:00 22:00 WBC 20.1 H (5.0-10.0) 10^3/uL RBC 4.98 (4.2-5.4) 10^6/uL Hgb 13.2 D (12.0-16.0) g/dL Hct 42.2 (37.0-47.0) % MCV 84.7 D (80-100) fL MCH 26.5 L (27.0-34.0) pg MCHC 31.3 L (33.0-35.0) g/dL Plt Count 135 L (150-450) 10^3/uL Neut % (Auto) 88.6 H (42.2-75.2) % Lymph % (Auto) 4.8 L (20.5-50.1) % [place] % (Auto) 6.5 (2-8) % Eos % (Auto) 0.0 L (1.0-3.0) % Baso % (Auto) 0.1 (0.0-1.0) % PT (9.0-12.0) SEC INR (0.9-1.2) D-Dimer, Quantitative (0-400) ng/mL Sodium 141 (136-145) mmol/L Potassium 3.8 (3.5-5.1) mmol/L Chloride 101 (98-107) mmol/L Carbon Dioxide 33 H (21-32) mmol/L Anion Gap 10.8 (7-13) mEq/L BUN 32 H (7-18) mg/dL Creatinine 2.46 H (0.55-1.02) mg/dL Est Cr Clr Drug Dosing 14.19 mL/min Estimated GFR (MDRD) 19 BUN/Creatinine Ratio 13.0 (No establ ref range) Glucose 79 (70-99) mg/dL Lactic Acid 1.7 (0.4-2.0) mmol/L Calcium 9.3 (8.5-10.1) mg/dL Magnesium 1.5 L (1.8-2.4) mg/dL Total Bilirubin 1.8 H (0.2-1.0) mg/dL AST 18 (15-37) U/L ALT 27 (14-59) U/L Alkaline Phosphatase 49 (46-116) U/L Troponin I 0.040 (0.000-0.056) ng/mL B-Natriuretic Peptide 162 H (0-100) pg/ml Total Protein 6.5 (6.4-8.2) g/dL Albumin 3.4 (3.4-5.0) g/dL Globulin 3.1 Albumin/Globulin Ratio 1.1 Amylase 22 L (25-115) U/L Lipase 95 (73-393) U/L SARS-CoV-2 RNA (AGA) (NEGATIVE) 10/17/20 10/17/20 10/17/20 Range/Units 22:00 22:00 22:22 WBC (5.0-10.0) 10^3/uL RBC (4.2-5.4) 10^6/uL Hgb (12.0-16.0) g/dL Hct (37.0-47.0) % MCV (80-100) fL MCH (27.0-34.0) pg MCHC (33.0-35.0) g/dL Plt Count (150-450) 10^3/uL Neut % (Auto) (42.2-75.2) % Lymph % (Auto) (20.5-50.1) % [place] % (Auto) (2-8) % Eos % (Auto) (1.0-3.0) % Baso % (Auto) (0.0-1.0) % PT 33.4 H D (9.0-12.0) SEC INR 3.4 H (0.9-1.2) D-Dimer, Quantitative < 100 (0-400) ng/mL Sodium (136-145) mmol/L Potassium (3.5-5.1) mmol/L Chloride (98-107) mmol/L Carbon Dioxide (21-32) mmol/L Anion Gap (7-13) mEq/L BUN (7-18) mg/dL Creatinine (0.55-1.02) mg/dL Est Cr Clr Drug Dosing mL/min Estimated GFR (MDRD) BUN/Creatinine Ratio (No establ ref range) Glucose (70-99) mg/dL Lactic Acid (0.4-2.0) mmol/L Calcium (8.5-10.1) mg/dL Magnesium (1.8-2.4) mg/dL Total Bilirubin (0.2-1.0) mg/dL AST (15-37) U/L ALT (14-59) U/L Alkaline Phosphatase (46-116) U/L Troponin I (0.000-0.056) ng/mL B-Natriuretic Peptide (0-100) pg/ml Total Protein (6.4-8.2) g/dL Albumin (3.4-5.0) g/dL Globulin Albumin/Globulin Ratio Amylase (25-115) U/L Lipase (73-393) U/L SARS-CoV-2 RNA (AGA) Negative (NEGATIVE) Meds: Medications Generic Name Dose Route Start Last Admin Trade Name Freq PRN Reason Stop Dose Admin Acetaminophen 650 mg 10/18/20 01:39 10/18/20 03:10 Acetaminophen 325 Mg Tab PO 650 mg Q4H PRN Administration Pain (Mild 1-3)/fever Calcitriol 0.5 mcg 10/18/20 21:00 Calcitriol 0.25 Mcg Cap PO BEDTIME COUNTS INCLUDE 234 BEDS AT [facility] Carvedilol 3.125 mg 10/18/20 09:00 Carvedilol 3.125 Mg Tab PO BID COUNTS INCLUDE 234 BEDS AT [facility] Clopidogrel Bisulfate 75 mg 10/18/20 09:00 Clopidogrel 75 Mg Tab PO DAILY COUNTS INCLUDE 234 BEDS AT [facility] Dextrose/Water 50 ml 10/18/20 01:48 50% Dextrose In Water 50 Ml Syringe IV Q15M PRN Hypoglycemia Diphenhydramine HCl 25 mg 10/18/20 02:45 10/18/20 03:10 Diphenhydramine 25 Mg Tab PO 25 mg BEDTIME VALDO Administration Furosemide 10 mg 10/18/20 02:00 10/18/20 02:37 Furosemide 20 Mg/2 Ml Vial IVPUSH 10 mg Q8H VALDO Administration Glucagon 1 mg 10/18/20 01:48 Glucagon,Human Recombinant 1 Mg Vial IM Q15M PRN Hypoglycemia Hydralazine HCl 25 mg 10/18/20 12:00 Hydralazine 25 Mg Tab PO BID@1200,2100 COUNTS INCLUDE 234 BEDS AT [facility] Hydralazine HCl 50 mg 10/18/20 08:00 Hydralazine 25 Mg Tab PO WITHBREAKFAST COUNTS INCLUDE 234 BEDS AT [facility] Albumin Human 12.5 gm in 50 mls @ 100 mls/hr 10/18/20 02:00 10/18/20 02:37 Flexbumin 25% IV 100 mls/hr Q8H COUNTS INCLUDE 234 BEDS AT [facility] Administration Piperacillin Sod/Tazobactam 50 mls @ 100 mls/hr 10/18/20 02:30 10/18/20 02:51 Sod 2.25 gm/ Sodium Chloride IV 100 mls/hr Q8H VALDO Administration Magnesium Sulfate/Dextrose 1 gm in 100 mls @ 100 mls/hr 10/18/20 03:15 10/18/20 04:27 Magnesium Sulfate In D5w 1 Gm/100 Ml IV 10/18/20 05:14 100 mls/hr Q1H VALDO Administration Insulin Glargine 55 unit 10/18/20 21:00 Insulin Glarg,Human.Rec.Analog 100 Unit/Ml SUBCUT BEDTIME COUNTS INCLUDE 234 BEDS AT [facility] Insulin Human Lispro 0 unit 10/18/20 08:00 Insulin Lispro 100 Units/Ml 3 Ml Vial SUBCUT WITHMEALSANDBED COUNTS INCLUDE 234 BEDS AT [facility] Protocol Insulin Human Lispro 17 unit 10/18/20 08:00 Insulin Lispro 100 Units/Ml 3 Ml Vial SUBCUT TIDMEALS COUNTS INCLUDE 234 BEDS AT [facility] Ondansetron HCl 4 mg 10/18/20 01:39 Ondansetron 4 Mg/2 Ml Sdv IVPUSH Q4H PRN Nausea/Vomiting Potassium Chloride 10 meq 10/18/20 08:00 Potassium Chloride 10 Meq Tab.Er PO BIDMEALS COUNTS INCLUDE 234 BEDS AT [facility] Pravastatin Sodium 80 mg 10/18/20 21:00 Pravastatin 20 Mg Tab PO BEDTIME COUNTS INCLUDE 234 BEDS AT [facility] Sodium Chloride 10 ml 10/18/20 01:39 Sodium Chloride 0.9% 10 Ml Syringe FLUSH ASDIRECTED PRN Keep Vein Open Terazosin HCl 10 mg 10/18/20 09:00 Terazosin 5 Mg Cap PO BID COUNTS INCLUDE 234 BEDS AT [facility] Vancomycin HCl 1 dose 10/18/20 01:45 Pharmacy To Dose - Vancomycin .XX ASDIRECTED VALDO Discontinued Medications Generic Name Dose Route Start Last Admin Trade Name Freq PRN Reason Stop Dose Admin Acetaminophen 650 mg 10/17/20 23:10 10/17/20 23:27 Acetaminophen 325 Mg Tab PO 10/17/20 23:11 650 mg NOW ONE Administration Diphenhydramine HCl 25 mg 10/18/20 21:00 Diphenhydramine 25 Mg Tab PO BEDTIME COUNTS INCLUDE 234 BEDS AT [facility] Ampicillin Sodium/Sulbactam 100 mls @ 100 mls/hr 10/17/20 23:02 10/17/20 23:27 Sodium 3 gm/ Sodium Chloride IV 10/18/20 00:01 100 mls/hr ONETIME ONE Administration Piperacillin Sod/Tazobactam 100 mls @ 200 mls/hr 10/18/20 01:45 10/18/20 02:16 Sod 3.375 gm/ Sodium Chloride IV Not Given Q6H COUNTS INCLUDE 234 BEDS AT [facility] Magnesium Sulfate/Dextrose 2 gm in 200 mls @ 100 mls/hr 10/18/20 01:46 10/18/20 03:16 Magnesium Sulfate In D5w 1 Gm/100 Ml IV 10/18/20 03:45 Not Given ONETIME ONE Albumin Human 12.5 gm in 50 mls @ 100 mls/hr 10/18/20 01:46 10/18/20 02:17 Flexbumin 25% IV 10/18/20 02:15 Not Given ONETIME ONE Vancomycin HCl 1 gm/ Sodium 250 mls @ 166.667 mls/hr 10/18/20 02:30 10/18/20 03:19 Chloride IV 10/18/20 03:59 166.667 mls/hr ONETIME ONE Administration Sodium Chloride Confirm 10/18/20 02:34 10/18/20 02:57 Normal Saline Administered 10/18/20 02:35 Not Given Dose 50 mls @ as directed .ROUTE .STK-MED ONE Sodium Chloride Confirm 10/18/20 02:41 10/18/20 02:57 Normal Saline Administered 10/18/20 02:42 Not Given Dose 50 mls @ as directed .ROUTE .STK-MED ONE Insulin Human Lispro 17 unit 10/18/20 06:00 Insulin Lispro 100 Units/Ml 3 Ml Vial SUBCUT TIDAC COUNTS INCLUDE 234 BEDS AT THE [facility] Departure - Departure Time of Disposition: 23:43 Disposition: Admitted As Inpatient 65 Condition: Fair Clinical Impression: Lower extremity edema, Stasis edema with ulcer of left lower extremity Congestive heart failure Qualifiers: Heart failure type: unspecified Heart failure chronicity: acute on chronic Qualified Code(s): I50.9 - Heart failure, unspecified Sepsis Event Note (ED) - Evaluation Sepsis Screening Result: No Definite Risk - Focused Exam Vital Signs: Vital Signs Temp Pulse Resp BP Pulse Ox 10/17/20 22:26 97 20 112/52 L 96 10/17/20 22:03 97.1 F 97 19 102/56 L 91 L - My Orders Last 24 Hours: My Active Orders 10/17/20 21:50 CULTURE BLOOD [BC] Stat 10/17/20 22:00 CULTURE BLOOD [BC] Stat 10/17/20 22:04 EKG 12 Lead [EKG Documentation Completion] [RC] URGENT 10/17/20 22:15 Blood Culture x2 Reflex Set [OM.PC] Stat 10/17/20 22:18 CULTURE WOUND [RM] Stat 10/18/20 01:19 CULTURE URINE [RM] Stat - Assessment/Plan Last 24 Hours: My Active Orders 10/17/20 21:50 CULTURE BLOOD [BC] Stat 10/17/20 22:00 CULTURE BLOOD [BC] Stat 10/17/20 22:04 EKG 12 Lead [EKG Documentation Completion] [RC] URGENT 10/17/20 22:15 Blood Culture x2 Reflex Set [OM.PC] Stat 10/17/20 22:18 CULTURE WOUND [RM] Stat 10/18/20 01:19 CULTURE URINE [RM] Stat
--- NOTE | 2020-10-17 23:58 | US ---
PROCEDURE INFORMATION: Exam: US Duplex Right Lower Extremity Veins, Limited Exam date and time: 10/17/2020 11:20 PM Age: 74 years old Clinical indication: Swelling (edema) of limb; Lower extremity, right; Patient HX: Swelling, warm purple calf TECHNIQUE: Imaging protocol: Real-time Duplex ultrasound of the Right Lower Extremity with 2-D rodriguez scale, color Doppler flow and spectral waveform analysis with image documentation. Limited exam was focused on the right lower extremity veins. COMPARISON: US Venous Doppler Lwr Ext Rt 02/13/2016 1:34 PM FINDINGS: Right deep veins: Unremarkable. The common femoral, femoral, proximal profunda femoral and popliteal veins are patent without thrombus. Normal Doppler waveforms. Normal compressibility and/or augmentation response. Right superficial veins: Unremarkable. Saphenofemoral junction is patent without thrombus. Soft tissues: Unremarkable. IMPRESSION: No evidence of deep vein thrombosis.
[2020-10-18] MEDS ORDERED: Ondansetron 4 MG/2 ML SDV IVPUSH PRN (01:39)
[2020-10-18] MEDS ORDERED: Piperacillin/Tazobactam 3.375 GM in Sodium Chloride 0.9% 100 ML IV SCH (01:45)
[2020-10-18] MEDS ORDERED: Magnesium Sulfate/D5W 2 GM/200 ML BAG IV ONE (01:46)
[2020-10-18] MEDS ORDERED: Albumin 25% 12.5 GM/50 ML BAG IV ONE (01:46)
[2020-10-18] MEDS ORDERED: 50% Dextrose in Water 50 ML Syringe IV PRN (01:48)
[2020-10-18] MEDS ORDERED: Glucagon,Human Recombinant 1 MG Vial IM PRN (01:48)
--- NOTE | 2020-10-18 01:55 | PCM.SN.2 ---
- Free Text/Narrative Note: START OF DOCTOR EMAMIS HISTORY AND PHYSICAL / CONSULTATION NOTE Chief Complaint: Right leg pain History of Present Illness: The patient is a 74-year-old female who presents to complain of right leg pain. She states it started proximally 48 hours prior to admission. She states that the pain is worse in the medial leg and that both of her legs are more edematous than usual. She denies any inciting event such as injury or trauma. She states that the right leg has been seeping clear fluid. The patient has fever, rigors, nausea, vomiting, cough, wheeze, abdominal pain, chest pain, dyspnea, or any other constitutional complaints. She presents for further evaluation Surgical History: Bilateral cataract surgery, cardiac stent Family History: Cancer, diabetes, hypertension Social History: Tobacco: Never Alcohol: Denies Caffeine: Denies Drugs: Never Allergies: Metformin, zinc, Norvasc, benazepril, fosinopril, ramipril, clonidine, codeine, hydrocodone, Avapro, lorazepam, metaxalone, verapamil Code Status: DNR, DNI Pertinent Laboratory Results / Pertinent Radiology Results / Pertinent Diagnostic Results / Pertinent Vital Signs: Blood pressure 112/52, pulse 97, respiration 20, temperature 9 7 1 degrees, 9 6% room air, creatinine 2.46, magnesium 1.5, total bilirubin is 1.8, INR 3.4, white blood cell count 20.1, platelet count 135,000 Physical Examination: General: -Alert -No acute distress -No dyspnea -No tachypnea -Morbidly obese Head: -Atraumatic -Normocephalic Eyes: -Pupils equally round and reactive to light and accommodation -Extraocular muscles intact Neurological: -Cranial nerves II-XII intact Neck: -No jugular venous distention -No thyromegaly -No cervical lymphadenopathy Heart: -Regular rate -Regular rhythm -No murmurs -No gallops -No rubs Lungs: -No wheeze -No rhonchi -No rales Abdomen: -Normal bowel sounds in all four quadrants -No rebound -No guarding -No tenderness Extremities: -2/4 pulse in all four extremities -No clubbing -No cyanosis -4+ bipedal pitting edema present -No calf tenderness present bilaterally -Negative Homans sign bilaterally Musculoskeletal: -5/5 bilateral upper extremity strength -5/5 bilateral lower extremity strength -Sensorium of bilateral upper extremities are equal and intact -Sensorium of bilateral lower extremities are equal and intact Additional Details / Additional Findings / Exceptions / Miscellaneous: There is erythema of bilateral lower extremities however it is more pronounced on the right side from just proximal to the ankle to just distal to the knee Assessment / Plan: Right leg cellulitis. Zosyn 3.375 g IV every 6 hours to be dosed by pharmacy plus IV vancomycin to be dosed by pharmacy. We will demarcate and date the margin of erythema daily to ensure resection. Wound care nurse evaluation pending Osteoarthritis Left atrial appendage thrombus. I will resume patient's home regimen of Coumadin/warfarin once the patient's INR normalizes within the range of 2 and 3 Hyperbilirubinemia. Will monitor LFTs periodically with CMP Hypomagnesemia. Will monitor magnesium levels intermittently and supplement as necessary Chronic kidney disease, baseline approximate 1.5. Will monitor creatinine levels intermittently. Albumin 25 g IV every 8 hours plus calcitriol 0.5 mcg p .o. nightly. History of DVT. I will resume patient's home regimen of Coumadin/warfarin once the patient's INR normalizes within the range of 2 and 3 Peripheral vascular disease with right carotid stenosis. Plavix and 5 mg p.o. daily plus pravastatin 80 mg p.o. nightly Thrombocytopenia. Monitor platelet count intermittently CHF, ejection fraction 40 to 45% with grade 3 diastolic dysfunction per echocardiogram from April 22, 2016. Check strict I/O. Check daily weight. Albumin 25 g IV every 8 hours plus Lasix 10 mg IV every 8 hours while closely monitoring creatinine plus Coreg 3.25 mg p.o. twice daily plus hydralazine 75 mg p.o. daily and 25 mg p.o. nightly Documented history of aortic stenosis Coronary artery disease, status post [place]. Coreg 3.5 mg p.o. twice daily plus Plavix and 5 mg p.o. daily plus pravastatin 80 mg p.o. nightly Diabetes. NovoLog 17 units subcutaneously 3 times daily with meals plus Tresiba 55 units subcutaneously nightly and will check fingerstick glucose before every meal and at bedtime and provide insulin sliding scale GERD Hyperlipidemia Hypertension. Coreg 3.5 mg p.o. twice daily plus hydralazine 75 mg p.o. daily and 25 mg p.o. nightly plus tracing 10 mg p.o. twice daily plus Lasix 10 mg IV every 8 hours while closely monitoring creatinine Obesity. Patient be counseled regarding lifestyle modification History of CVA. Plavix and 5 mg p.o. daily. Statin 80 mg p.o. nightly Obstructive sleep apnea. The patient does not use CPAP/BiPAP at home Renal artery stenosis Depression Seasonal allergies Diverticulosis Degenerative disc disease DVT prophylaxis. I will resume the patient's home regimen of Coumadin/warfarin once the patient's INR normalizes within the right the range of 2-3 Disposition: Anticipate discharge in 72 to 96 hours END OF DOCTOR EMAMIS HISTORY AND PHYSICAL / CONSULTATION NOTE
[2020-10-18] MEDS ORDERED: Sodium Chloride 0.9% 50 ML ONE ×2 (02:34→02:41)
[2020-10-18] MEDS: Albumin 25% 12.5 GM/50 ML BAG IV SCH ×3 (02:37→16:59)
[2020-10-18] MEDS: Furosemide 20 MG/2 ML VIAL IVPUSH SCH ×3 (02:37→18:15)
[2020-10-18] MEDS: Piperacillin/Tazobactam 2.25 GM in Sodium Chloride 0.9% 50 ML IV SCH ×4 (02:51→22:17)
[2020-10-18] MEDS: diphenhydrAMINE 25 MG Tab PO SCH ×2 (03:10→20:57)
[2020-10-18] MEDS: Acetaminophen 325 MG Tab PO PRN ×3 (03:10→15:55)
[2020-10-18] MEDS: Magnesium Sulfate/D5W 1 GM/100 ML BAG IV SCH ×2 (03:25→04:27)
[2020-10-18] MEDS ORDERED: Insulin Lispro 100 Units/ML 3 ML Vial SUBCUT SCH (06:00)
[2020-10-18] MEDS: Insulin Lispro 100 Units/ML 3 ML Vial SUBCUT SCH ×7 (08:15→21:32)
--- NOTE | 2020-10-18 08:27 | PCM.SN.2 ---
- Free Text/Narrative Note: START OF DOCTOR APRIL PROGRESS NOTE Subjective: The patient complains of right leg pain. Aside from this she endorses no complaints. She denies fever, rigors, nausea, vomiting, cough, wheeze, abdominal pain, chest pain, or any other constitutional complaints. I explained to the patient her current medical condition and plan of care and I answered all of her questions Objective: General: -Alert -No acute distress -No dyspnea -No tachypnea -Morbidly obese Heart: -Regular rate -Regular rhythm -No murmurs -No gallops -No rubs Lungs: -No wheeze -No rhonchi -No rales -Distant breath sounds bilaterally Abdomen: -Normal bowel sounds in all four quadrants -No rebound -No guarding -No tenderness Extremities: -2/4 pulse in all four extremities -No clubbing -No cyanosis -Bipedal edema present Additional Details / Additional Findings / Exceptions / Miscellaneous: There is erythema of bilateral lower extremities more pronounced on the right compared to the left Pertinent Laboratory Results / Pertinent Radiology Results / Pertinent Diagnostic Results / Pertinent Vital Signs: Vital signs stable. Morning labs pending Assessment / Plan: Right leg cellulitis. Zosyn 2.25 g IV every 6 hours to be dosed by pharmacy plus IV vancomycin to be dosed by pharmacy. We will demarcate and date the hever in of erythema daily to ensure resection. Wound care nurse evaluation pending Urinary tract infection. Zosyn 2.25 g IV every 8 hours Osteoarthritis Left atrial appendage thrombus. I will resume patient's home regimen of Coumadin/warfarin once the patient's INR normalizes within the range of 2 and 3 Hyperbilirubinemia. Will monitor LFTs periodically with CMP Hypomagnesemia. Will monitor magnesium levels intermittently and supplement as necessary Chronic kidney disease, baseline approximate 1.5. Will monitor creatinine levels intermittently. Albumin 25 g IV every 8 hours plus calcitriol 0.5 mcg p.o. nightly. History of DVT. I will resume patient's home regimen of Coumadin/warfarin once the patient's INR normalizes within the range of 2 and 3 Peripheral vascular disease with right carotid stenosis. Plavix and 5 mg p.o. daily plus pravastatin 80 mg p.o. nightly Thrombocytopenia. Monitor platelet count intermittently CHF, ejection fraction 40 to 45% with grade 3 diastolic dysfunction per echocardiogram from April 22, 2016. Check strict I/O. Check daily weight. Albumin 25 g IV every 8 hours plus Lasix 10 mg IV every 8 hours while closely monitoring creatinine plus Coreg 3.25 mg p.o. twice daily plus hydralazine 75 mg p.o. daily and 25 mg p.o. nightly Documented history of aortic stenosis Coronary artery disease, status post [place]. Coreg 3.5 mg p.o. twice daily plus Plavix and 5 mg p.o. daily plus pravastatin 80 mg p.o. nightly Diabetes. NovoLog 17 units subcutaneously 3 times daily with meals plus Tresiba 55 units subcutaneously nightly and will check fingerstick glucose before every meal and at bedtime and provide insulin sliding scale GERD Hyperlipidemia Hypertension. Coreg 3.5 mg p.o. twice daily plus hydralazine 75 mg p.o. daily and 25 mg p.o. nightly plus tracing 10 mg p.o. twice daily plus Lasix 10 mg IV every 8 hours while closely monitoring creatinine Obesity. Patient be counseled regarding lifestyle modification History of CVA. Plavix and 5 mg p.o. daily. Statin 80 mg p.o. nightly Obstructive sleep apnea. The patient does not use CPAP/BiPAP at home Renal artery stenosis Depression Seasonal allergies Diverticulosis Degenerative disc disease DVT prophylaxis. I will resume the patient's home regimen of Coumadin/warfarin once the patient's INR normalizes within the right the range of 2-3 Disposition: Anticipate discharge in 48 to 72 hours END OF DOCTOR AGNESMIS PROGRESS NOTE
[2020-10-18] MEDS: hydrALAZINE 25 MG Tab PO SCH ×3 (08:55→20:56)
[2020-10-18] MEDS: Potassium Chloride 10 MEQ Tab.ER PO SCH ×2 (08:57→17:57)
[2020-10-18] MEDS: Clopidogrel 75 MG Tab PO SCH (08:58)
[2020-10-18] MEDS: Terazosin 5 MG Cap PO SCH ×2 (08:58→20:54)
[2020-10-18] MEDS: Carvedilol 3.125 MG Tab PO SCH ×2 (08:58→20:56)
[2020-10-18] MEDS: Nystatin Topical Powder 30 GM Bottle TOP SCH ×2 (09:15→20:57)
[2020-10-18 09:24] LABS: ANION GAP 11.1 mEq/L (7-13)
[2020-10-18] MEDS: Acetaminophen/HYDROcodone 325-5 MG Tab PO PRN ×2 (10:04→20:53)
[2020-10-18] MEDS: Sodium Chloride 0.9% 10 ML Syringe FLUSH PRN ×2 (15:57→18:15)
[2020-10-18] MEDS: Calcitriol 0.25 MCG Cap PO SCH (20:55)
[2020-10-18] MEDS: Pravastatin 20 MG Tab PO SCH (20:57)
[2020-10-18] MEDS ORDERED: diphenhydrAMINE 25 MG Tab PO SCH (21:00)
[2020-10-18] MEDS: Insulin Glarg,Human.Rec.Analog 100 Unit/ML SUBCUT SCH (21:31)
[2020-10-19] MEDS: Furosemide 20 MG/2 ML VIAL IVPUSH SCH ×4 (01:43→23:15)
[2020-10-19] MEDS: Albumin 25% 12.5 GM/50 ML BAG IV SCH ×3 (01:47→17:06)
[2020-10-19] MEDS: Piperacillin/Tazobactam 2.25 GM in Sodium Chloride 0.9% 50 ML IV SCH ×3 (06:30→23:18)
--- NOTE | 2020-10-19 08:17 | PCM.SN.2 ---
- Free Text/Narrative Note: START OF DOCTOR APRIL PROGRESS NOTE Subjective: The patient Rayray that her legs feel less swollen compared to my encounter with her on October 18, 2020. She states that she also has less pain of her right leg. Overnight the patient denies fever, rigors, nausea, vomiting, cough, wheeze, abdominal pain, chest pain, or any other constitutional complaints. I explained to the patient her current medical condition and plan of care and I have answered all of her questions Objective: General: -Alert -No acute distress -No dyspnea -No tachypnea -Morbidly obese Heart: -iRegular rate -Regular rhythm -No murmurs -No gallops -No rubs Lungs: -No wheeze -No rhonchi -No rales -Distant breath sounds bilaterally Abdomen: -Normal bowel sounds in all four quadrants -No rebound -No guarding -No tenderness Extremities: -2/4 pulse in all four extremities -No clubbing -No cyanosis -Bipedal edema present Additional Details / Additional Findings / Exceptions / Miscellaneous: There is erythema of bilateral lower extremities more pronounced on the right compared to the left however there is recession from the line of demarcation Pertinent Laboratory Results / Pertinent Radiology Results / Pertinent Diagnostic Results / Pertinent Vital Signs: Heart rate 108, patient saturating 90%, white blood cell 17.3, hemoglobin 11.6, platelet count 116,000, INR 2, creatinine 2.09 Assessment / Plan: Right leg cellulitis. Zosyn 2.25 g IV every 6 hours to be dosed by pharmacy plus IV vancomycin to be dosed by pharmacy. We will demarcate and date the margin of erythema daily to ensure resection. Wound care nurse evaluation pending Urinary tract infection. Zosyn 2.25 g IV every 8 hours Osteoarthritis Left atrial appendage thrombus. Will monitor PT/INR periodically. Coumadin 4 mg p.o. q. Saturday, Saturday, , Saturday, Saturday and Coumadin 5 mg p.o. q. Saturday and Saturday Hyperbilirubinemia. Will monitor LFTs periodically with CMP Hypomagnesemia. Will monitor magnesium levels intermittently and supplement as necessary Chronic kidney disease, baseline approximate 1.5. Will monitor creatinine levels intermittently. Albumin 25 g IV every 8 hours plus calcitriol 0.5 mcg p.o. nightly. History of DVT. I Will monitor PT/INR periodically. Coumadin 4 mg p.o. q. Saturday, Saturday, , Saturday, Saturday and Coumadin 5 mg p.o. q. Saturday and Saturday Peripheral vascular disease with right carotid stenosis. Plavix and 5 mg p.o. daily plus pravastatin 80 mg p.o. nightly Thrombocytopenia. Monitor platelet count intermittently Anemia. Monitor hemoglobin levels intermittently. Check serum ferritin, iron panel, fecal occult blood CHF, ejection fraction 40 to 45% with grade 3 diastolic dysfunction per echocardiogram from April 22, 2016. Check strict I/O. Check daily weight. Albumin 25 g IV every 8 hours plus Lasix 20 mg IV every 8 hours while closely monitoring creatinine plus Coreg 3.25 mg p.o. twice daily plus hydralazine 75 mg p.o. daily and 25 mg p.o. nightly Documented history of aortic stenosis Coronary artery disease, status post [place]. Coreg 3.5 mg p.o. twice daily plus Plavix and 5 mg p.o. daily plus pravastatin 80 mg p.o. nightly Diabetes. NovoLog 17 units subcutaneously 3 times daily with meals plus Tresiba 55 units subcutaneously nightly and will check fingerstick glucose before every meal and at bedtime and provide insulin sliding scale GERD Hyperlipidemia Hypertension. Coreg 3.5 mg p.o. twice daily plus hydralazine 75 mg p.o. daily and 25 mg p.o. nightly plus tracing 10 mg p.o. twice daily plus Lasix 20 mg IV every 8 hours while closely monitoring creatinine Obesity. Patient be counseled regarding lifestyle modification History of CVA. Plavix and 5 mg p.o. daily. Statin 80 mg p.o. nightly Obstructive sleep apnea. The patient does not use CPAP/BiPAP at home Renal artery stenosis Depression Seasonal allergies Diverticulosis Degenerative disc disease DVT prophylaxis. Will monitor PT/INR periodically. Coumadin 4 mg p.o. q. Saturday, Saturday, , Saturday, Saturday and Coumadin 5 mg p.o. q. Saturday and Saturday Disposition: Anticipate discharge in 24 to 72 hours END OF DOCTOR EMAMIS PROGRESS NOTE
[2020-10-19] MEDS: hydrALAZINE 25 MG Tab PO SCH ×3 (08:26→20:54)
[2020-10-19] MEDS: Insulin Lispro 100 Units/ML 3 ML Vial SUBCUT SCH ×7 (08:27→21:09)
[2020-10-19] MEDS: Potassium Chloride 10 MEQ Tab.ER PO SCH ×2 (08:29→17:01)
[2020-10-19] MEDS: Clopidogrel 75 MG Tab PO SCH (08:30)
[2020-10-19] MEDS: Nystatin Topical Powder 30 GM Bottle TOP SCH ×2 (08:30→21:08)
[2020-10-19] MEDS: Acetaminophen 325 MG Tab PO PRN ×3 (08:31→20:02)
[2020-10-19] MEDS: Terazosin 5 MG Cap PO SCH ×2 (08:35→20:55)
[2020-10-19] MEDS: Carvedilol 3.125 MG Tab PO SCH ×2 (08:35→20:56)
[2020-10-19] MEDS ORDERED: Warfarin 5 MG Tab PO ONE (14:00)
[2020-10-19] MEDS: Calcitriol 0.25 MCG Cap PO SCH (20:55)
[2020-10-19] MEDS: diphenhydrAMINE 25 MG Tab PO SCH (20:55)
[2020-10-19] MEDS: Pravastatin 20 MG Tab PO SCH (20:55)
[2020-10-19] MEDS: Insulin Glarg,Human.Rec.Analog 100 Unit/ML SUBCUT SCH (21:08)
[2020-10-19] MEDS: Sodium Chloride 0.9% 10 ML Syringe FLUSH PRN (23:14)
[2020-10-20] MEDS: Albumin 25% 12.5 GM/50 ML BAG IV SCH ×2 (01:49→11:02)
[2020-10-20] MEDS: Acetaminophen 325 MG Tab PO PRN ×2 (03:19→08:55)
[2020-10-20] MEDS: Sodium Chloride 0.9% 10 ML Syringe FLUSH PRN ×4 (04:12→11:32)
[2020-10-20] MEDS: Furosemide 20 MG/2 ML VIAL IVPUSH SCH ×2 (06:02→14:20)
[2020-10-20] MEDS: Piperacillin/Tazobactam 2.25 GM in Sodium Chloride 0.9% 50 ML IV SCH ×2 (06:03→14:33)
[2020-10-20 07:16] LABS: ANION GAP 11.9 mEq/L (7-13)
[2020-10-20] MEDS ORDERED: Carvedilol 3.125 MG Tab PO SCH (08:00)
[2020-10-20] MEDS ORDERED: Warfarin 5 MG Tab PO ONE (08:20)
--- NOTE | 2020-10-20 08:34 | PCM.SN.2 ---
- Free Text/Narrative Note: START OF DOCTOR EMAMIS DISCHARGE SUMMARY Date of Admission: October 17, 2020 Date of Discharge: 8:31 AM on October 20, 2020 Primary Diagnosis: Right leg cellulitis Secondary Diagnosis: Urinary tract infection Osteoarthritis Left atrial appendage thrombus Hyperbilirubinemia Hypomagnesemia Chronic kidney disease, baseline creatinine approximately 1.5 History of DVT Peripheral vascular disease with right carotid stenosis Thrombocytopenia Iron deficiency anemia CHF, ejection fraction 40 to 45% with grade 3 diastolic dysfunction per echocardiogram from April 22, 2016 Documented history of aortic stenosis Coronary artery disease, status post stent Diabetes GERD Hyperlipidemia Hypertension Obesity History of CVA Obstructive sleep apnea Renal artery stenosis Depression Seasonal allergies Diverticulosis Degenerative disc disease Consultations: None Condition on Discharge: Fair. Patient at baseline state of health Disposition: The patient will be advised to follow-up with her primary care physician or provider 4 to 6 days post discharge for posthospitalization evaluation The patient will need a check of BMP 3 days post discharge for diagnosis of chronic kidney disease The patient will need to check a PT/INR 3 days post discharge for anticoagulation for history of DVT, left atrial appendage thrombus Discharge Medications: Senna 17.2 mg p.o. twice daily Multivitamin 1 tab p.o. daily Vitamin D 25 mcg p.o. daily Bumex 2 mg p.o. 3 times daily Coumadin 5 mg p.o. on Saturday and Saturday Coumadin 4 mg p.o. on Saturday, Saturday, , Saturday, Saturday Terazosin 10 mg p.o. twice daily Pravastatin 80 mg p.o. nightly Nystatin powder to be applied to affected area twice daily K-Dur 10 M EQ p.o. twice daily Tresiba 55 units of cutaneously nightly Insulin aspartate 17 units subcutaneously 3 times daily with meals Hydralazine 75 mg p.o. daily and 25 mg p.o. nightly Plavix and 5 mg p.o. daily Coreg 3.25 mg p.o. twice daily Calcitriol 0.5 mg p.o. nightly Doxycycline 100 mg p.o. twice daily. Quantity 14. 0 refills Ferrous sulfate 325 mg p.o. twice daily Vitamin C 250 mg p.o. daily END OF DOCTOR EMAMIS DISCHARGE SUMMARY
[2020-10-20] MEDS: Clopidogrel 75 MG Tab PO SCH (08:53)
[2020-10-20] MEDS: Potassium Chloride 10 MEQ Tab.ER PO SCH (08:53)
[2020-10-20] MEDS: Terazosin 5 MG Cap PO SCH (08:54)
[2020-10-20] MEDS: hydrALAZINE 25 MG Tab PO SCH ×2 (08:54→13:22)
[2020-10-20] MEDS: Nystatin Topical Powder 30 GM Bottle TOP SCH (08:55)
[2020-10-20] MEDS: Insulin Lispro 100 Units/ML 3 ML Vial SUBCUT SCH ×4 (08:59→13:21)
[2020-10-20] MEDS ORDERED: Albumin 25% 12.5 GM/100 ML BAG IV SCH (10:00)
[2020-10-20] MEDS: Albumin 25% 25 GM in Premix Bag 1 BAG IV SCH ×2 (11:29→14:20)
[2020-10-20 13:06] VITALS: BP 116/63; PULSE 61
[2020-10-20] MEDS ORDERED: Warfarin 2 MG Tab PO ONE (14:00)
[2020-10-20] MEDS ORDERED: Warfarin 2 MG Tab PO SCH (14:00)
[2020-10-21] MEDS ORDERED: Warfarin 5 MG Tab PO SCH (14:00)
== END 2020-10-20 14:00 | disposition home or self-care (01) | DRG 637 ==
LOC: DL.ED 21:33 → DL.MS 23:31
PROVIDERS: ADMIT Internal Medicine; ATTEND Internal Medicine
DX: E11.628 Type 2 diabetes mellitus with other skin complications (principal); I50.43 Acute on chronic combined systolic (congestive) and diastolic (congestive) heart failure; L03.115 Cellulitis of right lower limb; N39.0 Urinary tract infection, site not specified; I13.0 Hypertensive heart and chronic kidney disease with heart failure and stage 1 through stage 4 chronic kidney disease, or unspecified chronic kidney disease; Z68.43 Body mass index [BMI] 50.0-59.9, adult; M19.90 Unspecified osteoarthritis, unspecified site; E80.6 Other disorders of bilirubin metabolism; E83.42 Hypomagnesemia; I51.3 Intracardiac thrombosis, not elsewhere classified; Z20.822 Contact with and (suspected) exposure to COVID-19; D69.6 Thrombocytopenia, unspecified; I25.10 Atherosclerotic heart disease of native coronary artery without angina pectoris; Z66 Do not resuscitate; K21.9 Gastro-esophageal reflux disease without esophagitis; E78.5 Hyperlipidemia, unspecified; G47.33 Obstructive sleep apnea (adult) (pediatric); F32.9 Major depressive disorder, single episode, unspecified; K57.90 Diverticulosis of intestine, part unspecified, without perforation or abscess without bleeding; D50.9 Iron deficiency anemia, unspecified; E11.22 Type 2 diabetes mellitus with diabetic chronic kidney disease; E66.9 Obesity, unspecified; I70.1 Atherosclerosis of renal artery; J30.2 Other seasonal allergic rhinitis; N18.30 Chronic kidney disease, stage 3 unspecified; D63.1 Anemia in chronic kidney disease; I87.392 Chronic venous hypertension (idiopathic) with other complications of left lower extremity; L97.529 Non-pressure chronic ulcer of other part of left foot with unspecified severity; E11.621 Type 2 diabetes mellitus with foot ulcer; Z86.718 Personal history of other venous thrombosis and embolism; Z95.5 Presence of coronary angioplasty implant and graft; Z98.49 Cataract extraction status, unspecified eye; Z88.5 Allergy status to narcotic agent; Z88.8 Allergy status to other drugs, medicaments and biological substances; Z28.82 Immunization not carried out because of caregiver refusal; I69.311 Memory deficit following cerebral infarction; Z79.01 Long term (current) use of anticoagulants; Z79.02 Long term (current) use of antithrombotics/antiplatelets; Z79.4 Long term (current) use of insulin; Z79.899 Other long term (current) drug therapy
CPT/HCPCS: 36415; 71045; 80053; 82150; 83605; 83690; 83735; 83880; 84484; 85025; 85379; 85610; 87040 ×2; 87070; 87077 ×2; 87186 ×2; 93005; 93010; 93971; 96374; 99284; 99285; A9270; J0295; U0002; 51701; 51702; 80048; 80202; 81001; 82272; 82728; 82947; 83540; 83550; 83970; 84100; 87086; 97161-GP; J1815-GY; J1940; J2543; J3370; J3475; J7050; P9047

== ENCOUNTER 2020-12-28 20:37 | Emergency (ER) | payer MEDICARE, OTHER ==
[2020-12-28 21:21] VITALS: BP 151/37; PULSE 117
--- NOTE | 2020-12-28 21:41 | EDM.PDOC ---
ED HPI GENERAL MEDICAL PROBLEM - General Chief Complaint: Lower Extremity Injury/Pain Stated Complaint: CELLULITUS IN RIGHT LEG PER Time Seen by Provider: 12/28/20 21:25 Source of Information: Reports: Patient, Family () History Limitations: Reports: No Limitations - History of Present Illness INITIAL COMMENTS - FREE TEXT/NARRATIVE: This 75 yo female patient was brought to the ED by her due to chronic lower extremity swelling and possible cellulitis. The spouse reports he has been wrapping her lower extremities 2 times per day due to the fluid leakage. The spouse reports the patient's legs felt hot this evening. The patient reports she has been off antibiotics for the past 3 weeks. The patient denies any additional symptoms or concerns. Onset: Today Duration: Constant Location: Reports: Lower Extremity, Left, Lower Extremity, Right Quality: Reports: Dull, Pressure Severity: Moderate Improves with: Reports: None Worsens with: Reports: None Context: Reports: Other Associated Symptoms: Reports: No Other Symptoms Right Lower Leg Pain Score (Numeric/FACES): 7 - Related Data Allergies Allergy/AdvReac Type Severity Reaction Status Date / Time metformin Allergy Unknown Diarrhea Verified 10/18/20 00:42 zinc Allergy Unknown UNKNOWN Verified 10/18/20 00:42 amlodipine [From Lotrel] Allergy Other Verified 10/18/20 00:42 benazepril [From Lotrel] Allergy Other Verified 10/18/20 00:42 clonidine Allergy Itching Verified 10/18/20 00:42 codeine Allergy Other Verified 10/18/20 00:42 fosinopril [From Monopril] Allergy Other Verified 10/18/20 00:42 hydrocodone [From [place]] Allergy Hyperactivi Verified 10/18/20 00:42 ty irbesartan [From Avapro] Allergy Other Verified 10/18/20 00:42 lorazepam [From Ativan] Allergy Hyperactivi Verified 10/18/20 00:42 ty metolazone Allergy Rash Verified 10/18/20 00:42 ramipril [From Altace] Allergy Other Verified 10/18/20 00:42 verapamil [From Verelan] Allergy Other Verified 10/18/20 00:42 Home Meds: Home Meds Clopidogrel Bisulfate [Clopidogrel] 75 mg PO DAILY 03/13/20 [History] Insulin Degludec [Tresiba] 55 unit SQ BEDTIME 03/13/20 [History] Potassium Chloride [Klor-Con 10] 10 meq PO BIDMEALS 03/13/20 [History] carvediloL [Carvedilol] 3.125 mg PO BID 90 Days #60 tablet 03/21/20 [Rx] Insulin Aspart [NovoLOG] 17 units SUBCUT TIDAC 09/13/20 [History] Multivitamin with Minerals [Multivitamins with Minerals] 1 tab PO DAILY 09/13/20 [History] calcitrioL [Calcitriol] 0.5 mcg PO BEDTIME 09/13/20 [History] hydrALAZINE [Apresoline] 25 mg PO BID@1200,2100 09/13/20 [History] hydrALAZINE [Apresoline] 50 mg PO WITHBREAKFAST 09/13/20 [History] Bumetanide 2 mg PO TID 10/18/20 [History] Cholecalciferol (Vitamin D3) [Vitamin D3] 25 mcg PO DAILY 10/18/20 [History] Sennosides [Senokot] 17.2 mg PO BID 10/18/20 [History] Warfarin Sodium [Jantoven] 4 mg PO .[id number] 10/18/20 [History] Warfarin Sodium [Jantoven] 5 mg PO .MON,Sat10/18/20 [History] Ascorbic Acid [Vitamin C] 250 mg PO DAILY 30 Days #30 tablet 10/20/20 [Rx] Doxycycline [Vibramycin] 100 mg PO BID 7 Days #14 cap 10/20/20 [Rx] Ferrous Sulfate 325 mg PO BID 30 Days #60 tablet 10/20/20 [Rx] Nystatin [Nystop] 0 gm TOP BID 30 Days #1 bottle 10/20/20 [Rx] Pravastatin [Pravachol] 80 mg PO BEDTIME tablet 10/20/20 [Rx] Terazosin [Hytrin] 10 mg PO BID cap 10/20/20 [Rx] Past Medical History HEENT History: Reports: Cataract Cardiovascular History: Reports: Hypertension, Other (See Below) Other Cardiovascular History: systolic and diastolic CHF. 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 coronary artery disease involving [place] coronary artery of [place] heart without angina pectoris. essential hypertension carotid stenosis right. 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 - Infectious Disease History Infectious Disease History: Reports: Chicken Pox, Shingles - Past Surgical History Head Surgeries/Procedures: Reports: None HEENT Surgical History: Reports: Cataract Surgery Cardiovascular Surgical History: Reports: Other (See Below) Other Cardiovascular Surgeries/Procedures: stents placed GI Surgical History: Reports: None Female Surgical History: Reports: None Endocrine Surgical History: Reports: None Neurological Surgical History: Reports: None Musculoskeletal Surgical History: Reports: None Dermatological Surgical History: Reports: None Social & Family History - Family History Family Medical History: No Pertinent Family History - Tobacco Use Tobacco Use Status *Q: Never Tobacco User Second Hand Smoke Exposure: No - Caffeine Use Caffeine Use: Reports: Coffee - Recreational Drug Use Recreational Drug Use: No Review of Systems - Review of Systems Review Of Systems: Comprehensive ROS is negative, except as noted in HPI. ED EXAM, GENERAL - Physical Exam Exam: See Below Exam Limited By: No Limitations General Appearance: Alert, WD/WN, Moderate Distress, Obese Eye Exam: Bilateral Eye: EOMI, Normal Inspection, PERRL Ears: Normal External Exam, Normal Canal, Hearing Grossly Normal, Normal TMs Nose: Normal Inspection, Normal Mucosa, No Blood Throat/Mouth: Normal Inspection, Normal Lips, Normal Teeth, Normal Gums, Normal Oropharynx, Normal Voice, No Airway Compromise Head: Atraumatic, Normocephalic Neck: Normal Inspection, Supple, Non-Tender, Full Range of Motion Respiratory/Chest: No Respiratory Distress, Lungs Clear, Normal Breath Sounds, No Accessory Muscle Use, Chest Non-Tender Cardiovascular: Normal Peripheral Pulses, Regular Rate, Rhythm, No Gallop, No JVD, No Murmur, No Rub GI/Abdominal: Normal Bowel Sounds, Soft, Non-Tender, No Organomegaly, No Distention, No Abnormal Bruit, No Mass (Female) Exam: Deferred Rectal (Female) Exam: Deferred Back Exam: Normal Inspection, Full Range of Motion, NT Extremities: Normal Inspection, Normal Range of Motion, Non-Tender, Normal Capillary Refill, Pedal Edema (bilateral, with weeping present (chronic in nature). Right lower extremity feels warm to touch) Neurological: Alert, Oriented, CN II-XII Intact, Normal Cognition Psychiatric: Normal Affect, Normal Mood Skin Exam: Erythema (bilateral lower extremities), Increased Warmth (right lower extremity) Lymphatic: No Adenopathy Course - Vital Signs Last Recorded V/S: Last Vital Signs Temp 97.9 F 12/28/20 21:10 Pulse 117 H 12/28/20 21:10 Resp 18 12/28/20 21:10 BP 151/37 H 12/28/20 21:10 Pulse Ox 91 L 12/28/20 21:10 - Orders/Labs/Meds Orders: Active Orders 24 hr Category Date Time Status CULTURE BLOOD [BC] Stat Lab 12/28/20 21:37 Results CULTURE URINE [RM] Stat Lab 12/28/20 21:55 Received Labs: Laboratory Tests 12/28/20 12/28/20 12/28/20 Range/Units 21:37 21:37 21:37 WBC 25.4 H* (5.0-10.0) 10^3/uL RBC 4.70 (4.2-5.4) 10^6/uL Hgb 12.8 D (12.0-16.0) g/dL Hct 41.1 (37.0-47.0) % MCV 87.4 (80-100) fL MCH 27.2 (27.0-34.0) pg MCHC 31.1 L (33.0-35.0) g/dL Plt Count 156 (150-450) 10^3/uL Neut % (Auto) 91.4 H (42.2-75.2) % Lymph % (Auto) 3.8 L (20.5-50.1) % [place] % (Auto) 4.4 (2-8) % Eos % (Auto) 0.2 L (1.0-3.0) % Baso % (Auto) 0.2 (0.0-1.0) % Sodium 139 (136-145) mmol/L Potassium 4.7 (3.5-5.1) mmol/L Chloride 99 (98-107) mmol/L Carbon Dioxide 31 (21-32) mmol/L Anion Gap 13.7 H (7-13) mEq/L BUN 28 H (7-18) mg/dL Creatinine 1.73 H (0.55-1.02) mg/dL Est Cr Clr Drug Dosing 19.87 mL/min Estimated GFR (MDRD) 29 BUN/Creatinine Ratio 16.2 (No establ ref range) Glucose 262 H (70-99) mg/dL Lactic Acid 2.0 (0.4-2.0) mmol/L Calcium 9.3 (8.5-10.1) mg/dL Total Bilirubin 0.9 (0.2-1.0) mg/dL AST 18 (15-37) U/L ALT 26 (14-59) U/L Alkaline Phosphatase 63 (46-116) U/L B-Natriuretic Peptide 63 (0-100) pg/ml Total Protein 7.0 (6.4-8.2) g/dL Albumin 3.3 L (3.4-5.0) g/dL Globulin 3.7 Albumin/Globulin Ratio 0.89 Urine Color (YELLOW) Urine Appearance (CLEAR) Urine pH (5.0-9.0) Ur Specific [place] (1.005-1.030) Urine Protein (NEGATIVE) Urine Glucose (UA) (NEGATIVE) Urine Ketones (NEGATIVE) Urine Occult Blood (NEGATIVE) Urine Nitrite (NEGATIVE) Urine Bilirubin (NEGATIVE) Urine Urobilinogen (0.2-1.0) mg/dL Ur Leukocyte Esterase (NEGATIVE) Urine RBC (0-5) /HPF Urine WBC (0-5/HPF) /HPF Ur Epithelial Cells (NOT SEEN) /HPF Amorphous Sediment (NOT SEEN) /HPF Urine Bacteria (0-FEW/HPF) /HPF Urine Mucus (NOT SEEN) /LPF 12/28/20 Range/Units 21:55 WBC (5.0-10.0) 10^3/uL RBC (4.2-5.4) 10^6/uL Hgb (12.0-16.0) g/dL Hct (37.0-47.0) % MCV (80-100) fL MCH (27.0-34.0) pg MCHC (33.0-35.0) g/dL Plt Count (150-450) 10^3/uL Neut % (Auto) (42.2-75.2) % Lymph % (Auto) (20.5-50.1) % [place] % (Auto) (2-8) % Eos % (Auto) (1.0-3.0) % Baso % (Auto) (0.0-1.0) % Sodium (136-145) mmol/L Potassium (3.5-5.1) mmol/L Chloride (98-107) mmol/L Carbon Dioxide (21-32) mmol/L Anion Gap (7-13) mEq/L BUN (7-18) mg/dL Creatinine (0.55-1.02) mg/dL Est Cr Clr Drug Dosing mL/min Estimated GFR (MDRD) BUN/Creatinine Ratio (No establ ref range) Glucose (70-99) mg/dL Lactic Acid (0.4-2.0) mmol/L Calcium (8.5-10.1) mg/dL Total Bilirubin (0.2-1.0) mg/dL AST (15-37) U/L ALT (14-59) U/L Alkaline Phosphatase (46-116) U/L B-Natriuretic Peptide (0-100) pg/ml Total Protein (6.4-8.2) g/dL Albumin (3.4-5.0) g/dL Globulin Albumin/Globulin Ratio Urine Color Yellow (YELLOW) Urine Appearance Slightly cloudy (CLEAR) Urine pH 5.5 (5.0-9.0) Ur Specific [place] 1.020 (1.005-1.030) Urine Protein Negative (NEGATIVE) Urine Glucose (UA) Negative (NEGATIVE) Urine Ketones Negative (NEGATIVE) Urine Occult Blood Negative (NEGATIVE) Urine Nitrite Negative (NEGATIVE) Urine Bilirubin Negative (NEGATIVE) Urine Urobilinogen 0.2 (0.2-1.0) mg/dL Ur Leukocyte Esterase Small H (NEGATIVE) Urine RBC 0-5 (0-5) /HPF Urine WBC 50-75 H (0-5/HPF) /HPF Ur Epithelial Cells Few (NOT SEEN) /HPF Amorphous Sediment Few (NOT SEEN) /HPF Urine Bacteria Few (0-FEW/HPF) /HPF Urine Mucus Rare (NOT SEEN) /LPF Meds: Medications Discontinued Medications Generic Name Dose Route Start Last Admin Trade Name Freq PRN Reason Stop Dose Admin Vancomycin HCl 1,500 mg/ 500 mls @ 333.333 mls/hr 12/28/20 22:22 12/28/20 22:40 Sodium Chloride IV 12/28/20 23:51 333.333 mls/hr ONETIME ONE Administration Departure - Departure Time of Disposition: 00:19 Disposition: Home, Self-Care 01 Condition: Fair Clinical Impression: Cellulitis of right lower extremity - Discharge Information *PRESCRIPTION DRUG MONITORING PROGRAM REVIEWED*: Not Applicable *COPY OF PRESCRIPTION DRUG MONITORING REPORT IN PATIENT SUSHMA: Not Applicable Instructions: Cellulitis, Adult, [id number] Referrals: Liv Leija NP [Primary Care Provider] - Forms: ED Department Discharge Care Plan Goals: The patient and were advised of the examination and lab results during the visit. The patient was given an IV dose of Vancomycin while in the ED. The patient was discharged with a script for Doxycycline (100 mg) #28 to take 1 by mouth 2 times per day for 14 days. The patient should pharmacy picking technician her oral medications tomorrow. The patient was advised to follow-up with her primary care facility within the past week. If the patient has any additional symptoms or concerns, the patient should either return to the emergency department or visit her primary care facility. Sepsis Event Note (ED) - Focused Exam Vital Signs: Vital Signs Temp Pulse Resp BP Pulse Ox 12/28/20 21:10 97.9 F 117 H 18 151/37 H 91 L - My Orders Last 24 Hours: My Active Orders 12/28/20 21:37 CULTURE BLOOD [BC] Stat 12/28/20 21:55 CULTURE URINE [RM] Stat - Assessment/Plan Last 24 Hours: My Active Orders 12/28/20 21:37 CULTURE BLOOD [BC] Stat 12/28/20 21:55 CULTURE URINE [RM] Stat
[2020-12-28 22:03] LABS: ANION GAP 13.7 mEq/L (7-13)
== END 2020-12-29 00:31 | disposition home or self-care (01) ==
LOC: DL.ED 20:37
DX: L03.115 Cellulitis of right lower limb (principal); I13.0 Hypertensive heart and chronic kidney disease with heart failure and stage 1 through stage 4 chronic kidney disease, or unspecified chronic kidney disease; E11.22 Type 2 diabetes mellitus with diabetic chronic kidney disease; N18.9 Chronic kidney disease, unspecified; I50.40 Unspecified combined systolic (congestive) and diastolic (congestive) heart failure; E66.9 Obesity, unspecified; Z88.5 Allergy status to narcotic agent; Z88.8 Allergy status to other drugs, medicaments and biological substances; Z91.09 Other allergy status, other than to drugs and biological substances; Z79.02 Long term (current) use of antithrombotics/antiplatelets; Z79.4 Long term (current) use of insulin; Z79.01 Long term (current) use of anticoagulants; Z68.42 Body mass index [BMI] 45.0-49.9, adult; Z79.899 Other long term (current) drug therapy
CPT/HCPCS: 36415; 80053; 81001; 83605; 83880; 85025; 87040; 87086; 96365; 96366; 99282; 99283-25; J3370; J7040